=== PATIENT | female | born 1955 | race Caucasian/White ===

== ENCOUNTER 2025-01-27 12:56 | Outpatient (REF) | payer MEDICARE, SELFPAY ==
[2025-01-27 12:59] LABS: MANUAL DIFF FLAG NO
[2025-01-27 13:08] LABS: Basophils Percent Auto 0.4 % (0-2); Eosinophils Absolute Auto 0.2 X10*3/uL (0.0-0.4); Eosinophils Percent Auto 2.1 % (0-4); Hematocrit 35.4 % (37.0-47.0); Hemoglobin 11.4 g/dl (12.0-16.0); Imm Gran Abs Auto 0.03 X10*3/uL (0.00-0.03); Imm Gran Pct Auto 0.4 % (0.0-0.4); Lymphocytes Absolute Auto 2.5 X10*3/uL (1.2-4.9); Lymphocytes Percent Auto 33.9 % (20-40); Mean Corpuscular HGB Conc 32.2 g/dl (31.0-35.0); Mean Corpuscular Hemoglobin 27.1 pg (27.0-33.0); Mean Corpuscular Volume 84.1 fL (80.0-98.0); Mean Platelet Volume 9.8 fL (9.4-12.3); Monocytes Absolute Auto 0.8 X10*3/uL (0.1-1.2); Monocytes Percent Auto 11.3 % (2-11); Neutrophils Absolute Auto 3.8 x10*3/uL (2.0-8.3); Neutrophils Percent Auto 51.9 % (45-73); Platelet Count 477 X10*3/uL (160-400); Red Blood Count 4.21 X10*6/uL (4.20-5.50); White Blood Count 7.3 X10*3/uL (4.8-10.8)
[2025-01-27 13:20] LABS: Anion Gap 18 (12-20); Blood Urea Nitrogen 10 mg/dL (9-16); Calcium 10.1 mg/dL (8.4-10.2); Carbon Dioxide 20 mmol/L (22-29); Chloride 107 mmol/L (96-108); Estimated Glomerular Filt Rate > 60; Glucose Random 89 mg/dL (60-115); Potassium 3.5 mmol/L (3.3-5.1); Sodium 141 mmol/L (135-145)
== END 2025-01-27 12:57 | disposition home or self-care (01) ==
LOC: HO.MMNH2L 12:56
PROVIDERS: Visit Provider Student in an Organized Health Care Education/Training Program
DX: D64.9 Anemia, unspecified (principal); I13.0 Hypertensive heart and chronic kidney disease with heart failure and stage 1 through stage 4 chronic kidney disease, or unspecified chronic kidney disease
CPT/HCPCS: 36415; 80048; 85025

== ENCOUNTER 2025-03-03 08:28 | Outpatient (REF) | payer MEDICARE, SELFPAY ==
--- OUTSIDE RECORDS SUMMARY | 2025-03-03 08:50 | XMS_ITS | Clinical Summary ---
Author Organization LL [facility] Address [address] [place] [phone] Phone Care Team Providers Care Radio Journalist Name Role Phone Betsy Rodriguez MD Primary Care Prov ider Allergies Active Allergy Reactions Criticality Noted Date Comments Gabapentin Unknown 09/30/2024 Pregabalin Unknown 09/30/2024 Medications ascorbic acid (VITAMIN C) 500 mg tablet Take 1 tablet (500 mg total) by mouth 1 (one) time each day. Active aspirin 81 mg EC tablet Take 1 tablet (81 mg total) by mouth 1 (one) time each day. Active calcium carbonate (TUMS) 500 mg (200 mg elemental calcium) chewable tablet Chew 1 tablet (500 mg total) every 4 (four) hours if needed for heartburn or indigestion (q 4 hours p). Active lactulose (CHRONULAC) solutionIndicati ons:constipation Take 30 mL (20 g total) by mouth every 3 (three) days. PRN :Give if no BM X 3 days, to be given by day shift Active metoprolol tartrate (LOPRESSOR) 25 mg tablet Take 1 tablet (25 mg total) by mouth 2 (two) times a day. Active zinc sulfate (ZINCATE) 220 mg (50 mg elemental zinc) capsule Take 1 capsule (220 mg total) by mouth 1 (one) time each day. Active amLODIPine (NORVASC) 5 mg tablet Take 1 tablet (5 mg total) by mouth 1 (one) time each day. 11/28/202 4 11/28/20 25 Active atorvastatin (LIPITOR) 40 mg tablet Take 1 tablet (40 mg total) by mouth at bedtime. 10/07/20 Active DULoxetine (CYMBALTA) [address] capsule Take 1 capsule (30 mg total) by mouth 1 (one) time each day. Do not crush or chew. 10/07/20 Active ferrous sulfate 325 mg (65 mg elemental iron) tablet Take 1 tablet (325 mg total) by mouth 1 (one) time each day. 10/07/20 Active Lactobacillus acidoph-L.bulgar (FLORANEX) 1 million cell tablet Take 1 tablet by mouth 2 (two) times a day with meals. Active rivaroxaban (Xarelto) 2.5 mg tabletIndication s:atrial fibrillation Take 1 tablet (2.5 mg total) by mouth 2 (two) times a day with meals. Active aluminum-magnesi um hydroxide-simeth icone (MAALOX) 200-200-20 mg/5 mL suspension Take 30 mL by mouth every 4 (four) hours if needed for heartburn. Active Admelog U-100 insulin lispro 100 unit/mL injectionIndicat ions:type 2 diabetes mellitus Inject 2-12 Units under the skin 3 (three) times a day before meals. -Administer within 15 minutes of a meal 10/07/20 Active multivitamin tablet Take 1 tablet by mouth 1 (one) time each day. Active thiamine (VITAMIN B-1) 100 mg tablet Take 1 tablet (100 mg total) by mouth 1 (one) time each day. Active metFORMIN (GLUCOPHAGE) 500 mg tabletIndication s:type 2 diabetes mellitus Take 1 tablet (500 mg total) by mouth 1 (one) time each day with breakfast. 10/07/20 Active senna (SENOKOT) 8.6 mg tablet Take 2 tablets (17.2 mg total) by mouth at bedtime. 10/07/20 Active Active Problems Problem Noted Date Diagnosed Date Left below-knee amputee ([facility] V24, [facility] V2 8) 09/30/2024 Toe ulcer due to DM ([facility] V24, [facility] V28) 0 02/28/2022 Overview (12/06/2024): Left second toe. Status postdebridement. To be following with Dr. Shana ANN Hypertensive retinopathy of both eyes 01/04/2022 Overview (12/06/2024): Dr. 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 Nuclear sclerosis 01/04/2022 Overview (12/06/2024): Cataract surgery recommnded, patient declined. Type 2 diabetes mellitus wit h eye manifestations ([facility] V24, [facility] V28) 01/04/2022 Overview (12/06/2024): Diabetic retinopathy, macula edema. Dr. Hunter SVT (supraventricular tachycardia) ([facility] V24) 05/28/2021 Amputation, below knee, unil ateral, traumatic ([facility] V24, [facility] V28) 12/10/2018 Peripheral vascular disease ([facility] V24) 2018 Overview (12/06/2024): Status post left great toe amputation, status post superficial femoral artery to dorsalis pedis bypass left SFA endarterectomy status post right BKA Diabetes mellitus ([facility] V24, [facility] V28) 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 ([facility] V24) 03/16/2018 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 ([facility] V24) 01/26/2018 Overview (12/06/2024): Dry gangrene Hypertriglyceridemia 12/13/2013 Overview (12/06/2024): IMO update Diabetes mellitus, type 2 ([facility] V24, [facility] V28) 08/02/2013 Hypertension 08/02/2013 Major depression 08/02/2013 Immunizations Name Administration Dates Next Due Pneumococcal polysaccharide 23 valent (Pneumovax 23) 2yo and older 12/13/2013 Td, Unspecified 04/10/2004 Tdap Tetanus diptheria acell ular pertussis (Boostrix; Adacel) 7yo and older 12/13/2013 Surgical History Surgery Date Site/Laterality Comments TONSILLECTOMY 11/10/1959 PROCEDURE: HISTORICAL TONSILLECTOMY BYPASS GRAFT 03/16/2018 PROCEDURE: CT AMPUTATION TOE METATARSOPHALANGEAL JOINT; COMMENT: Left first toe ray amputation OTHER SURGICAL HISTORY 09/14/2018 PROCEDURE: HISTORY OTHER; COMMENT: Right below-knee amputation OTHER SURGICAL HISTORY 07/27/2018 PROCEDURE: HISTORY OTHER; COMMENT: Left common femoral artery access OTHER SURGICAL HISTORY 12/31/2017 PROCEDURE: HISTORY OTHER; COMMENT: Left SFA to DP bypass. Endoscopic vein harvest. 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 ([facility] V24) 01/26/2018 DX:Traumatic amputation of g reat toe of left foot ([facility]); COMMENT: Dry gangrene Cholelithiasis DX:Cholelithiasi s Gangrene ([facility] V24, [facility] V28) DX:Gangrene ([facility]); COMMENT: Left great toe Legally blind DX:Legally blind Neuropathy DX:Neuropathy Osteoarthritis DX:Osteoarthriti s PAD (peripheral artery disea se) ([facility] V24) DX:PAD (peripheral artery di sease) ([facility]) Poor dentition DX:Poor dentitio n PVD (peripheral vascular dis ease) ([facility] V24) DX:PVD (peripheral vascular disease) ([facility]) S/P angioplasty DX:S/P angioplas ty S/P BKA (below knee amputati on) ([facility] V24, [facility] V28) DX:S/P BKA (below knee ampu tation) ([facility]) Diabetes mellitus type 2, co ntrolled, with complications ([facility] V24, [facility] V28) DX:Diabetes mellitus type 2, controlled, with complications ([facility]) Esophageal reflux DX:Esophageal reflux Hyperlipidemia DX:Hyperlipidemi a Essential hypertension DX:Essent ial hypertension Toe ulcer due to DM ([facility] V24, [facility] V28) 02/28/2022 DX:Toe ulcer due to DM ([facility]) ; COMMENT: Left second toe. Status postdebridement. To be following with Dr. Shana ANN Family History Medical History Relation Name Comments No Known Problems Brother Coronary artery disease Father Diabetes Father Depression Mother Diabetes Mother Hypertension Mother Stroke Mother Thyroid disease Mother Lung cancer Paternal Grandfather Mental illness Sister Other: ca rectal Sister Ovarian cancer Sister Thyroid disease Sister Relation Name Status Comments Brother Alive no medical prob lems Father diabetes Maternal Grandmother (Age 59) [facility] Mother (Age 77) stroke age 75 diabetes- HTN- thyroid - depression- rheumatoid arthritis Paternal Grandfather (Age 70's ) diabetes Paternal Grandmother Alive no medi mariana problems Sister Alive precancer ovari an - surgically removed Social History Tobacco Use Types Packs/Day Years Used Date Smoking Tobacco: Never Smokeless Tobacco: Never Alcohol Use Standard Drinks/Week Comments No 0 (1 standard drink = 0.6 oz pur e alcohol) Housing Instability Answer Date Recorde d Are you worried that in the next 2 months you may not have stable housing? No 09/30/2024 Food Access & Nutrition Answer Date Rec orded Do you have access to a vari ety of food including fruits and vegetables? Yes 09/30/2024 Health Literacy Answer Date Recorded How often do you need to hav e someone help you when you read instructions, pamphlets, or other written material from your doctor or pharmacy? Never 10/08/2024 Caregiver: How often do you need to have someone help you when you read instructions, pamphlets, or other written material from your doctor or pharmacy? Not on file 10/08/2024 Financial Risk Answer Date Recorded How hard is it for you to pa y for the very basics like food, housing, medical care, and air conditioning / heating? Patient declined 09/30/2024 Transportation Answer Date Recorded Has the lack of transportati on kept you from meetings, work, or from getting things needed for daily living? No Has the lack of transportati on kept you from medical appointments or from getting medications? No 10/01/2024 Social Isolation Answer Date Recorded How often do you feel lonely or isolated from th ose around you? Never 10/08/2024 Food Risk Answer Date Recorded Within the past 12 months we worried whether our food would run out before we got money to buy more. Never true 09/30/2024 Within the past 12 months th e food we bought just didn't last and we didn't have money to get more. Never true 09/30/2024 Dependent Care Answer Date Recorded Do you need help finding or paying for care for your loved ones. For example, children's ministry director or elderly care for an older adult? No 09/30/2024 Education Answer Date Recorded Do you think completing more education or training, like finishing a GED, going to college, or learning a trade, would be helpful for you? No 09/30/2024 Employment and Income Answer Date Recor ded During the last four weeks, have you been actively looking for work? No 09/30/2024 Living Situation Answer Date Recorded What is your living situation? 1 11/30/2023 Interpersonal Safety Answer Date Record ed Physical Abuse 09/30/2024 Verbal Abuse 09/30/2024 Comments Unknown Sex and Gender Information Value Date Recorded Sex Assigned at Not on file Legal Sex Female 3:32 AM EST Gender Identity Female 09/30/2024 6:31 PM EST Sexual Orientation Not on file Obstetrics History Last Filed Vital Signs Vital Sign Reading Time Taken Comments Blood Pressure 168/75 10/08/2024 7:55 AM EST Pulse 69 10/08/2024 7:55 AM EST Temperature 36.3 ??C (97.3 ??F) 10/08/2024 7:55 AM ES T Respiratory Rate 15 10/08/2024 1:21 AM EST Oxygen Saturation 97% 10/08/2024 7:55 AM EST Inhaled Oxygen Concentration - - Weight 53.9 kg (118 lb 12.8 oz) 10/02/2024 9:00 AM EST Height 165 cm (5' 4.96 ) 09/30/2024 11: 14 AM EST Body Mass Index 19.79 09/30/2024 11:14 AM EST Plan of Treatment Health Maintenance Due Date Last Done Comments Breast Cancer Screening 1955 Diabetes: Annual Foot Exam 1963 Diabetes: Annual Retina Eye Exam 1963 Zoster Vaccines (1 of 2) 2003 RSV Immunization Adult Patients (1 - Risk 60-74 years 1-dose series) 2013 Pneumococcal Vaccine: 50+ Years (2 of 2 - PCV) 12/13/2014 12/13/2013 Cholesterol Screening (Lipid Panel) 10/19/2022 Colorectal Cancer Screening: Colonoscopy 10/19/2022 Osteoporosis Screening (Bone Density Screening) 10/19/2022 Diabetes: Blood Sugar Contro l Test (HGBA1C) 10/20/2022 DTaP,Tdap,and Td Vaccines (3 - Td or Tdap) 12/13/2023 12/13/2013, 04/10/2004 COVID-19 Vaccine (3 - 2023-2 5 season) 2024 03/04/2021, 02/09/2021 Medicare Annual Wellness Visit 08/26/2024 08/26/2023 Diabetes: Annual Urine Albumin-Creatinine Ratio (uACR) 12/08/2024 12/08/2023 Influenza Vaccine (Season Ended) 2025 08/14/2018 Diabetes: Annual GFR (Glomerular Filtration Rate) 10/06/2025 10/06/2024, 10/01/2024, 09/17/2024 Hypertension/CHF/CAD Annual BMP Blood Test 10/06/2025 10/06/2024, 10/01/2024, 09/17/2024 Depression Screening 10/08/2025 10/08/2024 Falls Risk Assessment 10/08/2025 10/08/2024 Social Influencers of Health Screening 10/08/2025 10/08/2024 Hepatitis C Screening Completed 05/11/2014 HIB Vaccines Aged Out No longer eligi ble based on patient's age to complete this topic HPV Vaccines Aged Out No longer eligi ble based on patient's age to complete this topic Hepatitis A Vaccines Aged Out No long er eligible based on patient's age to complete this topic Hepatitis B Vaccines Aged Out No long er eligible based on patient's age to complete this topic IPV Vaccines Aged Out No longer eligi ble based on patient's age to complete this topic MMR Vaccines Aged Out No longer eligi ble based on patient's age to complete this topic Meningococcal ACWY Vaccine Aged Out N o longer eligible based on patient's age to complete this topic Meningococcal B Vaccine Aged Out No l onger eligible based on patient's age to complete this topic RSV Immunization Patients Under 20 months Aged Out No longer eligible b ased on patient's age to complete this topic Varicella Vaccines Aged Out No longer eligible based on patient's age to complete this topic Procedures Procedure Name Priority Date/Time Associated Diagnosis Comments COMPREHENSIVE METABOLIC PANEL Routine 10/06/2024 5:55 AM EST URINE ALBUMIN CREATININE RATIO Routine 12/08/2023 HEPATITIS C SCREENING Routine 05/11/2014 from Last 3 Months or Most Recently Relevant to Health Maintenance Results * (ABNORMAL) Comprehensive metabolic panel (10/06/2024 5:55 AM EST) Sodium 136 133 - 145 mmol/L LAB CHEMISTRY METHOD 10/06/2024 6:53 AM [facility] Potassium 4.3 3.5 - 5.5 mmol/L LAB CHEMISTRY METHOD 10/06/2024 6:53 AM [facility] Chloride 101 96 - 110 mmol/L LAB CHEMISTRY METHOD 10/06/2024 6:53 AM [facility] CO2 26 21 - 32 mmol/L LAB CHEMISTRY METHOD 10/06/2024 6:53 AM [facility] Anion Gap 9 3 - 11 LAB CHEMISTRY METHOD 10/06/2024 6:53 AM [facility] Glucose 86 70 - 100 mg/dL LAB CHEMISTRY METHOD 10/06/2024 6:53 AM [facility] BUN 16 5 - 25 mg/dL LAB CHEMISTRY METHOD 10/06/2024 6:53 AM [facility] Creatinine 0.48(L) 0.50 - 1.10 mg/dL LAB CHEMISTRY METHOD 10/06/2024 6:53 AM [facility] eGFR 101 >=60 mL/min/1. 73m2 LAB CHEMISTRY METHOD 10/06/2024 6:53 AM [facility] Comment:Calculation based on the??Chronic Kidney Disease Epidemiology Collaboration (CKD-EPI) equation refit??without adjustment for race. BUN/Creatinine Ratio 33.3 LAB CHEMISTRY METHOD 10/06/2024 6:53 AM [facility] Calcium 9.6 8.5 - 10.5 mg/dL LAB CHEMISTRY METHOD 10/06/2024 6:53 AM [facility] AST (SGOT) 16 10 - 42 unit/L LAB CHEMISTRY METHOD 10/06/2024 6:53 AM [facility] ALT (SGPT) 12 10 - 60 unit/L LAB CHEMISTRY METHOD 10/06/2024 6:53 AM [facility] Alkaline Phosphatase 72 42 - 121 unit/L LAB CHEMISTRY METHOD 10/06/2024 6:53 AM [facility] Total Protein 5.6(L) 6.0 - 8.0 g/dL LAB CHEMISTRY METHOD 10/06/2024 6:53 AM [facility] Albumin 2.2(L) 3.2 - 5.0 g/dL LAB CHEMISTRY METHOD 10/06/2024 6:53 AM [facility] Total Bilirubin 0.3 0.0 - 1.4 mg/dL LAB CHEMISTRY METHOD 10/06/2024 6:53 AM [facility] Blood Venous blood specimen / Unknown Venipuncture / Unknown 10/06/2024 5:55 AM EST 10/06/2024 6:16 AM EST us Amalia M Rin PA LAB BLOOD ORDERABLES Final R esult 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 Advance Directives and Living Will 10/14/2024 8:46 AM Health Care Decision (hx) 06/26/2022 AD NEW DIRECTIVE Health Care Decision (hx) 06/12/2022 AD NEW DIRECTIVE Health Care Decision (hx) 06/12/2022 AD NEW DIRECTIVE Health Care Decision (hx) 06/12/2022 AD NEW DIRECTIVE Health Care Decision (hx) 06/12/2022 AD NEW DIRECTIVE Health Care Decision (hx) 06/12/2022 AD NEW DIRECTIVE Health Care Decision (hx) 06/12/2022 AD NEW DIRECTIVE Health Care Decision (hx) 06/12/2022 AD NEW DIRECTIVE Health Care Decision (hx) 06/12/2022 AD NEW DIRECTIVE Health Care Decision (hx) 06/12/2022 AD NEW DIRECTIVE Health Care Decision (hx) 06/12/2022 AD NEW DIRECTIVE Health Care Decision (hx) 06/12/2022 AD NEW DIRECTIVE Health Care Decision (hx) 06/12/2022 AD NEW DIRECTIVE Health Care Decision (hx) 06/12/2022 AD NEW DIRECTIVE Health Care Decision (hx) 06/12/2022 AD NEW DIRECTIVE Health Care Decision (hx) 06/12/2022 AD NEW DIRECTIVE Health Care Decision (hx) 06/12/2022 AD NEW DIRECTIVE Health Care Decision (hx) 06/12/2022 AD NEW DIRECTIVE Health Care Decision (hx) 06/12/2022 AD NEW DIRECTIVE Health Care Decision (hx) 06/12/2022 AD NEW DIRECTIVE Health Care Decision (hx) 06/12/2022 AD NEW DIRECTIVE Health Care Decision (hx) 06/12/2022 AD NEW DIRECTIVE Health Care Decision (hx) 06/12/2022 AD NEW DIRECTIVE Health Care Decision (hx) 06/12/2022 AD NEW DIRECTIVE Health Care Decision (hx) 06/12/2022 AD NEW DIRECTIVE Health Care Decision (hx) 06/12/2022 AD NEW DIRECTIVE Health Care Decision (hx) 06/12/2022 AD NEW DIRECTIVE Health Care Decision (hx) 06/12/2022 AD NEW DIRECTIVE Health Care Decision (hx) 06/12/2022 AD NEW DIRECTIVE Health Care Decision (hx) 06/12/2022 AD NEW DIRECTIVE Health Care Decision (hx) 06/12/2022 AD NEW DIRECTIVE Health Care Decision (hx) 06/12/2022 AD NEW DIRECTIVE Health Care Decision (hx) 06/12/2022 AD NEW DIRECTIVE Health Care Decision (hx) 06/12/2022 AD NEW DIRECTIVE Health Care Decision (hx) 06/12/2022 AD NEW DIRECTIVE Health Care Decision (hx) 06/12/2022 AD ENW DIRECTIVE Health Care Decision (hx) 06/12/2022 AD NEW DIRECTIVE Health Care Decision (hx) 06/12/2022 AD NEW DIRECTIVE Health Care Decision (hx) 06/12/2022 AD NEW DIRECTIVE Health Care Decision (hx) 06/12/2022 AD NEW DIRECTIVE Health Care Decision (hx) 06/12/2022 AD NEW DIRECTIVE Health Care Decision (hx) 06/12/2022 AD NEW DIRECTIVE Health Care Decision (hx) 06/12/2022 AD NEW DIRECTIVE Health Care Decision (hx) 06/12/2022 AD NEW DIRECTIVE Health Care Decision (hx) 06/09/2022 AD NEW DIRECTIVE Health Care Decision (hx) 06/09/2022 AD NEW DIRECTIVE Health Care Decision (hx) 06/09/2022 AD NEW DIRECTIVE Health Care Decision (hx) 06/09/2022 AD NEW DIRECTIVE Health Care Decision (hx) 06/09/2022 AD NEW DIRECTIVE Health Care Decision (hx) 06/09/2022 AD NEW DIRECTIVE Health Care Decision (hx) 06/09/2022 AD NEW DIRECTIVE Health Care Decision (hx) 06/09/2022 AD NEW DIRECTIVE Health Care Decision (hx) 06/09/2022 AD NEW DIRECTIVE Health Care Decision (hx) 06/09/2022 AD NEW DIRECTIVE Health Care Decision (hx) 06/09/2022 AD NEW DIRECTIVE Health Care Decision (hx) 06/09/2022 AD NEW DIRECTIVE Health Care Decision (hx) 06/09/2022 AD NEW DIRECTIVE Health Care Decision (hx) 06/09/2022 AD NEW DIRECTIVE Health Care Decision (hx) 06/09/2022 AD NEW DIRECTIVE Health Care Decision (hx) 06/09/2022 AD NEW DIRECTIVE Health Care Decision (hx) 06/09/2022 AD NEW DIRECTIVE Health Care Decision (hx) 06/09/2022 AD NEW DIRECTIVE Health Care Decision (hx) 06/09/2022 AD NEW DIRECTIVE Health Care Decision (hx) 06/09/2022 AD NEW DIRECTIVE Health Care Decision (hx) 06/09/2022 AD NEW DIRECTIVE Health Care Decision (hx) 06/09/2022 AD NEW DIRECTIVE Health Care Decision (hx) 06/09/2022 AD NEW DIRECTIVE Health Care Decision (hx) 06/09/2022 AD NEW DIRECTIVE Health Care Decision (hx) 06/09/2022 AD NEW DIRECTIVE Health Care Decision (hx) 06/09/2022 AD NEW DIRECTIVE Health Care Decision (hx) 06/09/2022 AD NEW DIRECTIVE Health Care Decision (hx) 06/09/2022 AD NEW DIRECTIVE Health Care Decision (hx) 06/09/2022 AD NEW DIRECTIVE Health Care Decision (hx) 06/09/2022 AD NEW DIRECTIVE Health Care Decision (hx) 06/09/2022 AD NEW DIRECTIVE Health Care Decision (hx) 06/09/2022 AD NEW DIRECTIVE Health Care Decision (hx) 06/09/2022 AD NEW DIRECTIVE Health Care Decision (hx) 06/09/2022 AD NEW DIRECTIVE Health Care Decision (hx) 06/09/2022 AD NEW DIRECTIVE Health Care Decision (hx) 06/09/2022 AD NEW DIRECTIVE Health Care Decision (hx) 06/09/2022 AD NEW DIRECTIVE Health Care Decision (hx) 06/09/2022 AD NEW DIRECTIVE Health Care Decision (hx) 06/09/2022 AD NEW DIRECTIVE Health Care Decision (hx) 06/09/2022 AD NEW DIRECTIVE Health Care Decision (hx) 06/09/2022 AD NEW DIRECTIVE Health Care Decision (hx) 06/09/2022 AD NEW DIRECTIVE Health Care Decision (hx) 06/09/2022 AD NEW DIRECTIVE Advance Directives and Living Will 10/01/2024 9:30 AM [facility] * Full Code - Default (Latest Code Status on File) Date Activated Date Inactivated Comments 09/30/2024 6:25 PM 10/08/2024 2:32 PM This is or danish is used when code status has not been discussed with the patient, or code status is otherwise unknown/unconfirmed To update the patient's code status, place a code status order. Do not modify or discontinue any currently active code status orders. Care Teams Radio Journalist Relationship Specialty Start Date End Date Betsy Rodriguez MD [address] [place] [id number] PCP - General Internal Medicine 09/30/24
--- OUTSIDE RECORDS SUMMARY | 2025-03-03 08:50 | XMS_ITS | Encounter Summary ---
Author Organization [facility] Address [address] [place] [address] Care Team Providers Care Stogy Roller Name Role Phone Betsy Rodriguez MD Primary Care Prov ider Encounter Details Date Type Department Care Team (Late st Contact Info) Description 09/17/2024 Lab Requisition [facility] - Main Lab [address] [facility] [place] [id number] Mark Anthony Simpson MD [address] [place] [address] Essential (primary) hypertension; Type 2 diabetes mellitus without complications (CMS/HCC V24, CMS/HCC V28) Social History Tobacco Use Types Packs/Day Years Used Date Smoking Tobacco: Never Smokeless Tobacco: Never Alcohol Use Standard Drinks/Week Comments No 0 (1 standard drink = 0.6 oz pur e alcohol) Comments Unknown Sex and Gender Information Value Date Recorded Sex Assigned at Not on file Legal Sex Female 3:32 AM EST Gender Identity Female 09/30/2024 6:31 PM EST Sexual Orientation Not on file documented as of this encounter Plan of Treatment Not on file documented as of this encounter Procedures Procedure Name Priority Date/Time Associated Diagnosis Comments SEDIMENTATION RATE Routine 09/17/2024 5: 38 AM EST Essential (primary) hypertension Type 2 diabetes mellitus without complications (CMS/HCC) COMPLETE BLOOD COUNT Routine 09/17/2024 5:38 AM EST Essential (primary) hypertension Type 2 diabetes mellitus without complications (CMS/HCC) C-REACTIVE PROTEIN Routine 09/17/2024 5: 38 AM EST Essential (primary) hypertension Type 2 diabetes mellitus without complications (CMS/HCC) COMPREHENSIVE METABOLIC PANEL Routine 09/17/2024 5:38 AM EST Essential (primary) hypertension Type 2 diabetes mellitus without complications (CMS/HCC) documented in this encounter Results * (ABNORMAL) C-reactive protein (09/17/2024 5:38 AM EST) C-Reactive Protein 2.55(H) <=0.50 mg/dL LAB CHEMISTRY METHOD 09/17/2024 9:14 AM EST [facility] Blood Venous blood specimen / Unknown Venipuncture / Unknown 09/17/2024 5:38 AM EST 09/17/2024 8:06 AM EST Mark Anthony Simpson MD LAB BLOOD ORDERABLES Final Result Performing Organization Address City/[facility]/ZIP Co de Phone Number [facility] [address] [place] [address], [place] [phone] * (ABNORMAL) Sedimentation rate (09/17/2024 5:38 AM EST) Sed Rate 97(H) 0 - 30 mm/hr LAB HEMETOLOGY METHOD 09/17/2024 8:33 AM EST [facility] Blood Venous blood specimen / Unknown Venipuncture / Unknown 09/17/2024 5:38 AM EST 09/17/2024 8:06 AM EST Mark Anthony Simpson MD LAB BLOOD ORDERABLES Final Result [facility] [address] [place] [address], [place] [phone] * (ABNORMAL) Comprehensive metabolic panel (09/17/2024 5:38 AM EST) Sodium 139 133 - 145 mmol/L LAB CHEMISTRY METHOD 09/17/2024 9:14 AM [facility] Potassium 5.0 3.5 - 5.5 mmol/L LAB CHEMISTRY METHOD 09/17/2024 9:14 AM [facility] Comment:Hemolysis present Chloride 106 96 - 110 mmol/L LAB CHEMISTRY METHOD 09/17/2024 9:14 AM [facility] CO2 27 21 - 32 mmol/L LAB CHEMISTRY METHOD 09/17/2024 9:14 AM [facility] Anion Gap 6 3 - 11 LAB CHEMISTRY METHOD 09/17/2024 9:14 AM [facility] Glucose 92 70 - 100 mg/dL LAB CHEMISTRY METHOD 09/17/2024 9:14 AM [facility] BUN 27(H) 5 - 25 mg/dL LAB CHEMISTRY METHOD 09/17/2024 9:14 AM [facility] Creatinine 0.58 0.50 - 1.10 mg/dL LAB CHEMISTRY METHOD 09/17/2024 9:14 AM [facility] eGFR 97 >=60 mL/min/1. 73m2 LAB CHEMISTRY METHOD 09/17/2024 9:14 AM [facility] Comment:Calculation based on the??Chronic Kidney Disease Epidemiology Collaboration (CKD-EPI) equation refit??without adjustment for race. BUN/Creatinine Ratio 46.6 LAB CHEMISTRY METHOD 09/17/2024 9:14 AM [facility] Calcium 10.3 8.5 - 10.5 mg/dL LAB CHEMISTRY METHOD 09/17/2024 9:14 AM [facility] AST (SGOT) 22 10 - 42 unit/L LAB CHEMISTRY METHOD 09/17/2024 9:14 AM [facility] Comment:Hemolysis present ALT (SGPT) 9(L) 10 - 60 unit/L LAB CHEMISTRY METHOD 09/17/2024 9:14 AM [facility] Alkaline Phosphatase 73 42 - 121 unit/L LAB CHEMISTRY METHOD 09/17/2024 9:14 AM [facility] Total Protein 6.2 6.0 - 8.0 g/dL LAB CHEMISTRY METHOD 09/17/2024 9:14 AM [facility] Albumin 2.6(L) 3.2 - 5.0 g/dL LAB CHEMISTRY METHOD 09/17/2024 9:14 AM [facility] Total Bilirubin 0.3 0.0 - 1.4 mg/dL LAB CHEMISTRY METHOD 09/17/2024 9:14 AM [facility] Blood Venous blood specimen / Unknown Venipuncture / Unknown 09/17/2024 5:38 AM EST 09/17/2024 8:06 AM EST Mark Anthony Simpson MD LAB BLOOD ORDERABLES Final Result [facility] [address] [place] [address], * (ABNORMAL) Complete blood count (09/17/2024 5:38 AM EST) WBC 10.6 4.8 - 10.8 K/[facility] LAB HEMETOLOGY METHOD 09/17/2024 8:22 AM [facility] RBC 3.70(L) 3.80 - 4.80 M/[facility] LAB HEMETOLOGY METHOD 09/17/2024 8:22 AM [facility] Hemoglobin 10.0(L) 11.5 - 16.0 g/dL LAB HEMETOLOGY METHOD 09/17/2024 8:22 AM [facility] Hematocrit 32.4(L) 35.0 - 47.0 % LAB HEMETOLOGY METHOD 09/17/2024 8:22 AM EST [facility] MCV 86.6 79.0 - 98.0 FL LAB HEMETOLOGY METHOD 09/17/2024 8:22 AM EST [facility] MCH 26.7(L) 27.0 - 32.0 pcg LAB HEMETOLOGY METHOD 09/17/2024 8:22 AM [facility] MCHC 30.9(L) 32.0 - 37.0 g/dL LAB HEMETOLOGY METHOD 09/17/2024 8:22 AM EST [facility] RDW 16.4(H) 11.0 - 15.0 % LAB HEMETOLOGY METHOD 09/17/2024 8:22 AM [facility] Platelets 481(H) 130 - 400 K/mcL LAB HEMETOLOGY METHOD 09/17/2024 8:22 AM [facility] MPV 10.1 7.0 - 11.0 FL LAB HEMETOLOGY METHOD 09/17/2024 8:22 AM EST [facility] NRBC 0.0 <1.0 % LAB HEMETOLOGY METHOD 09/17/2024 8:22 AM [facility] NRBC Absolute 0.00 <0.10 K/mcL LAB HEMETOLOGY METHOD 09/17/2024 8:22 AM [facility] Blood Venous blood specimen / Unknown Venipuncture / Unknown 09/17/2024 5:38 AM EST 09/17/2024 8:06 AM EST us Mark Anthony Simpson MD LAB BLOOD ORDERABLES Final Result [facility] [address] [place] [address], documented in this encounter Visit Diagnoses Diagnosis Essential (primary) hypertension Unspecified essential hypertension Type 2 diabetes mellitus without complications (CMS/HCC V24, CMS/HCC V28) documented in this encounter Care Teams Stogy Roller Relationship Specialty Start Date End Date Betsy Rodriguez MD [address] [place] [id number] PCP - General Internal Medicine 09/30/24 documented as of this encounter
[2025-03-03 10:14] LABS: Alanine Aminotransferase 6 U/L (0-31); Albumin Level 3.1 g/dL (3.5-5.0); Alkaline Phosphatase 61 U/L (39-117); Anion Gap 9 (12-20); Aspartate Amino Transferase 20 U/L (5-31); Bilirubin Total 0.4 mg/dL (0.0-1.0); Blood Urea Nitrogen 16 mg/dL (9-16); Calcium 9.8 mg/dL (8.4-10.2); Carbon Dioxide 25 mmol/L (22-29); Chloride 109 mmol/L (96-108); Estimated Glomerular Filt Rate > 60; Glucose Random 92 mg/dL (60-115); Potassium 3.8 mmol/L (3.3-5.1); Sodium 139 mmol/L (135-145); Total Protein 6.2 g/dL (6.5-8.0)
== END 2025-03-03 08:29 | disposition home or self-care (01) ==
LOC: HO.MMNH2L 08:28
PROVIDERS: Visit Provider Student in an Organized Health Care Education/Training Program
DX: E87.6 Hypokalemia (principal)
CPT/HCPCS: 36415; 80053

== ENCOUNTER 2025-03-28 05:55 | Outpatient (REF) | payer MEDICARE, MEDICAID, SELFPAY ==
--- OUTSIDE RECORDS SUMMARY | 2025-03-28 05:57 | XMS_ITS | Encounter Summary ---
Author Organization [facility] Address [address] [place] [address] Care Team Providers Care Transplant Registered Nurse Name Role Phone Immanuel Rodriguez MD Primary Care Provider [phone] Encounter Details Date Type Department Care Team Description 01/01/2024 Sports Physician Report Medical Records [address] [place] [address] Bassam Golden DO Social History Tobacco Use Types Packs/Day Years Used Date Smoking Tobacco: Never Smokeless Tobacco: Never Alcohol Use Standard Drinks/Week Comments No 0 (1 standard drink = 0.6 oz pur e alcohol) Alcohol Habits Answer Date Recorded How often do you have a drin k containing alcohol? Never 08/26/2023 How many drinks containing a lcohol do you have on a typical day when you are drinking? Patient does not drink 08/26/2023 How often do you have six or more drinks on one occasion? Never 08/26/2023 Social Isolation Answer Date Recorded In a typical week, how many times do you talk on the phone with family, friends, or neighbors? More than three times a week 08/26/2023 How often do you get togethe r with friends or relatives? More than three times a week 08/26/2023 How often do you attend [facility] or caodaism services? More than 4 times per year 08/26/2023 Do you belong to any clubs o r organizations such as latter-day groups, unions, fraternal or athletic groups, or school groups? Yes 08/26/2023 How often do you attend meet ings of the clubs or organizations you belong to? More than 4 times per year 08/26/2023 Are you now , , , , never or living with a partner? Never 04/15/2022 Physical Activity Answer Date Recorded On average, how many days pe r week do you engage in moderate to strenuous exercise (like walking fast, running, jogging, dancing, swimming, biking, or other activities that cause a light or heavy sweat)? 0 days 08/26/2023 On average, how many minutes do you engage in exercise at this level? 0 min 08/26/2023 Stress Answer Date Recorded Do you feel stress - tense, restless, nervous, or anxious, or unable to sleep at night because your mind is troubled all the time - these days? Not at all 08/26/2023 Financial Resource Strain Answer Date R ecorded How hard is it for you to pa y for the very basics like food, housing, medical care, and heating? Not hard at all 08/26/2023 Intimate Partner Violence Answer Date R ecorded Within the last year, have y ou been afraid of your partner or ex-partner? No 08/26/2023 Within the last year, have y ou been humiliated or emotionally abused in other ways by your partner or ex-partner? No Within the last year, have y ou been kicked, hit, slapped, or otherwise physically hurt by your partner or ex-partner? No 08/26/2023 Within the last year, have y ou been raped or forced to have any kind of sexual activity by your partner or ex-partner? No 08/26/2023 Food Insecurity Answer Date Recorded Within the past 12 months, y ou worried that your food would run out before you got money to buy more. Never true 08/26/2023 Within the past 12 months, t he food you bought just didn't last and you didn't have money to get more. Never true 08/26/2023 Transportation Needs Answer Date Record ed In the past 12 months, has l ack of transportation kept you from medical appointments or from getting medications? No 08/10 In the past 12 months, has l ack of transportation kept you from meetings, work, or getting things needed for daily living? No 08/26/2023 Housing Stability Answer Date Recorded In the last 12 months, was t here a time when you were not able to pay the mortgage or rent on time? No 08/26/2023 In the last 12 months, how many places have you lived? 1 08/26/2023 In the last 12 months, was t here a time when you did not have a steady place to sleep or slept in a skilled nursing (including now)? No 08/26/2023 Sex Assigned at Date Recorded Not on file Job Start Date Occupation Industry Not on file Not on file Not on file documented as of this encounter Plan of Treatment Not on file documented as of this encounter Visit Diagnoses Not on filedocumented in this encounter Care Teams Transplant Registered Nurse Relationship Specialty Start Date End Date Immanuel Rodriguez MD [address] [place] [id number] PCP - General Internal Medicine 07/29/14 documented as of this encounter
--- OUTSIDE RECORDS SUMMARY | 2025-03-28 05:57 | XMS_ITS | Encounter Summary ---
Author Organization [facility] [employer] [facility] Address [address] [place] [address] Care Team Providers Care Mail Carrier Technician Name Role Phone Immanuel Rodriguez MD Primary Care Provider [phone] Narinder Yung DPMark Unavailable Unavailable Reason for Visit * Reason Onset Date Comments Error 08/09/2022 Encounter Details Date Type Department Care Team Description 08/09/2022 Refill Adult Medicine - [place] [address] [place] [address] Immanuel Rodriguez MD [address] [place] [address] Error Social History Tobacco Use Types Packs/Day Years [...] week 08/26/2023 How often do you attend [facility] or congregational services? More than 4 times per year 08/26/2023 Do you belong to any clubs o r organizations such as congregation groups, unions, fraternal or athletic groups, or [...] place to sleep or slept in a jail (including now)? No 08/26/2023 Sex Assigned at Date Recorded Not on file Job Start Date Occupation Industry Not on file Not on file Not on file COVID-19 Exposure Response Date Recorded In the last 10 days, have yo u been in contact with someone who was confirmed or suspected to have Coronavirus/COVID-19? No / Unsure 08/12/2022 10:27 AM EDT documented as of this encounter Plan of Treatment Not on file documented as of this encounter Visit Diagnoses Not on filedocumented in this encounter Care Teams Mail Carrier Technician Relationship Specialty Start Date End Date Immanuel Rodriguez MD [address] [place] [address] PCP - General Internal Medicine 07/29/14 Narinder Yung DPM [address] [place] [address] Podiatry 08/20/23 08/25/23 documented as of this encounter
--- OUTSIDE RECORDS SUMMARY | 2025-03-28 05:57 | XMS_ITS | Encounter Summary ---
Author Organization [facility] Address [address] [place] [address] Care Team Providers Care Physics Instructor Name Role Phone Immanuel Rodriguez MD Primary Care Provider [phone] [phone] Shona Funk PA-C Unavailable Unavailab Narinder Damon DPMark Unavailable Unavailable Reason for Visit * Reason Onset Date Comments Pre-visit Diabetes Lab Adult Medicine 07/27/202008/09 Encounter Details Date Type Department Care Team Description 07/27/2020 Telephone Adult Medicine - [place] [address] [place] [address] Immanuel Rodriguez MD [address] [place] [address] Pre-visit Diabetes Lab Adult Medicine (08/09) Social History Tobacco Use Types Packs/Day Years [...] week 08/26/2023 How often do you attend chur ch or bahai services? More than 4 times per year 08/26/2023 Do you belong to any clubs o r organizations such as nondenominational groups, unions, fraternal or athletic groups, or [...] place to sleep or slept in a fpc (including now)? No 08/26/2023 Sex Assigned at Date Recorded Not on file Job Start Date Occupation Industry Not on file Not on file Not on file documented as of this encounter Miscellaneous Notes * Telephone Encounter - Teresa Oreilly - 07/27/2020 8:56 AM EDT Sent patient an email advising them to complete diabetic lab work at least three days prior to their upcoming appointment. documented in this encounter Plan of Treatment Not on file documented as of this encounter Visit Diagnoses Diagnosis Uncontrolled type 2 diabetes mellitus with hyperglycemia (HCC)- Primary documented in this encounter Care Teams Physics Instructor Relationship Specialty Start Date End Date Immanuel Rodriguez MD [address] [place], [place] PCP - General Internal Medicine 07/29/14 Shona Funk PA-C [address] [place], [place] Cardiology 08/30/21 04/14/22 Narinder Yung DPM [address] [place], [place] Podiatry 08/20/23 08/25/23 documented as of this encounter
--- OUTSIDE RECORDS SUMMARY | 2025-03-28 05:57 | XMS_ITS | Encounter Summary ---
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 More than 4 times per year 08/26/2023 Do you belong to any clubs o r organizations such as faith groups, unions, fraternal or athletic groups, or [...] place to sleep or slept in a residential (including now)? No 08/26/2023 Sex Assigned at Date Recorded Not on file Job Start Date Occupation Industry Not on file Not on file Not on file COVID-19 Exposure Response Date Recorded In the last month, have you been in contact with someone who was confirmed or suspected to have Coronavirus / COVID-19? 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
--- OUTSIDE RECORDS SUMMARY | 2025-03-28 05:57 | XMS_ITS | Encounter Summary ---
[facility] Address [address] [place] [address] Care Team Providers Care Plant Superintendent Name Role Phone Immanuel Rodriguez MD Primary Care Provider [phone] [phone] Reason for Visit * Reason Onset Date Comments TEST RESULTS 12/24/2023 Encounter Details Date Type Department Care Team Description 12/24/2023 Telephone Adult Medicine - [place] [address] [place] [address] Immanuel Rodriguez MD [address] [place] [address] TEST RESULTS Social History Tobacco Use Types Packs/Day Years [...] week 08/26/2023 How often do you attend [facility] or orthodoxy services? More than 4 times per year 08/26/2023 Do you belong to any clubs o r organizations such as caodaism groups, unions, fraternal or athletic groups, or [...] encounter Miscellaneous Notes * Telephone Encounter - Tee Molina RN - 12/31/2023 8:54 AM EST Pt advised of provider message , pt states that she still has a wound on her foot that they are healing , pt states that wound clinic is telling her to do this * Telephone Encounter - Tee Molina RN - 12/29/2023 2:39 PM EST Tried calling mail box is full * Telephone Encounter - Donna Cornejo - 12/29/2023 1:07 PM EST Pt is looking for a call back for this to discuss: please call the pt back at [phone] * Telephone Encounter - Immanuel Rodriguez MD - 12/24/2023 10:55 AM EST This is usually an indication of kidney disease in diabetes which we do not have any control over. In terms of the diabetes her hemoglobin A1c was good. She should consider eating less proteins. We will follow closely * Telephone Encounter - Tee Molina RN - 12/24/2023 9:17 AM EST Pt states that she was told her protein was elevated , she is referring to the micro albumin, pt was given the message to drink more water , pt states that she is drinking water and the se eats alto of protein due to being an amputee documented in this encounter Plan of Treatment Not on file documented as of this encounter Visit Diagnoses Not on filedocumented in this encounter Care Teams Plant Superintendent Relationship Specialty Start Date End Date Immanuel Rodriguez MD [address] [place] [id number] PCP - General Internal Medicine 07/29/14 documented as of this encounter
--- OUTSIDE RECORDS SUMMARY | 2025-03-28 05:57 | XMS_ITS | Encounter Summary ---
Author Organization [facility] Address [address] [place] [address] Care Team Providers Care Osteopathy Doctor Name Role Phone Immanuel Rodriguez MD Primary Care Provider [phone] [phone] Shona Funk PA-C Unavailable Unavailab Narinder Damon DPMark Unavailable Unavailable Encounter Details Date Type Department Care Team Description 08/11/2020 [facility] Medical Records [address] [place] [address] Abstract, Provider Social History Tobacco Use Types Packs/Day Years [...] How often do you attend [facility] or jainism services? More than 4 times per year 08/26/2023 Do you belong to any clubs o r organizations such as taoism groups, unions, fraternal or athletic groups, or [...] place to sleep or slept in a penitentiary (including now)? No 08/26/2023 Sex Assigned at Date Recorded Not on file Job Start Date Occupation Industry Not on file Not on file Not on file COVID-19 Exposure Response Date Recorded In the last month, have you been in contact with someone who was confirmed or suspected to have Coronavirus / COVID-19? No / Unsure 08/09/2020 10:47 AM EDT documented as of this encounter Plan of Treatment Not on file documented as of this encounter Visit Diagnoses Not on filedocumented in this encounter Care Teams Osteopathy Doctor Relationship Specialty Start Date End Date Immanuel Rodriguez MD [address] [place] [address] PCP - General Internal Medicine 07/29/14 Shona Funk PA-C [address] [place], [place] Cardiology 08/30/21 04/14/22 Narinder Yung DPM [address] [place] [address] Podiatry 08/20/23 08/25/23 documented as of this encounter
--- OUTSIDE RECORDS SUMMARY | 2025-03-28 05:57 | XMS_ITS | Encounter Summary ---
Author Organization [facility] Address [address] [place] [address] Care Team Providers Care Asset Management Lead Name Role Phone Immanuel Rodriguez MD Primary Care Provider +1 [phone] Shona Funk PA-C Unavailable Unavailab Narinder Damon DPMark Unavailable Unavailable Encounter Details Date Type Department Care Team Description 11/22/2016 Orders Only Adult Medicine - [place] [address] [place] [address] Jill bentley Ch, MD [address] [place] [address] Uncontrolled type 2 diabetes mellitus with hyperosmolarity without coma, without long-term current use of insulin (HCC) (Primary Dx); Essential hypertension; Mild single current episode of major depressive disorder (HCC) Social History Tobacco Use Types Packs/Day [...] 08/26/2023 How often do you attend [facility] or mu-ism services? More than 4 times per year 08/26/2023 Do you belong to any clubs o r organizations such as jehovah's witness groups, unions, fraternal or athletic groups, or [...] place to sleep or slept in a mcc (including now)? No 08/26/2023 Sex Assigned at Date Recorded Not on file Job Start Date Occupation Industry Not on file Not on file Not on file documented as of this encounter Plan of Treatment Scheduled Orders Name Type Priority Associated Diagnoses Orde r Schedule COMPREHENSIVE METABOLIC PANEL Lab Routine Essential hypertension Expected: 11/22/2016, Expires: 11/22/2017 LIPID PROFILE Lab Routine Uncontrolled type 2 diabetes mellitus with hyperosmolarity without coma, without long-term current use of insulin (HCC) Expected: 11/22/2016, Expires: 11/22/2017 documented as of this encounter Results * (ABNORMAL) CBC (AUTO DIFF PLATELET) (11/22/2016 9:59 AM EST) WBC 6.9 4.8 - 10.8 x10-3 11/22/2016 12:55 PM EST [facility] RBC 4.2 3.8 - 4.8 x10-6 11/22/2016 12:55 PM EST [facility] HGB 11.5 11.5 - 16.0 g/dl 11/22/2016 12:55 PM EST [facility] HCT 36.8 35 - 47 % 11/22/2016 12:55 PM EST [facility] MCV 87.8 79 - 98 fl 11/22/2016 12:55 PM EST [facility] MCH 27.4 27 - 32 pg 11/22/2016 12:55 PM EST [facility] MCHC 31.3(L) 32 - 37 g/dl 11/22/2016 12:[address] [facility] RDW 14.8 11 - 15 % 11/22/2016 12:55 PM EST [facility] PLT COUNT 325 130 - 400 x10-3 11/22/2016 12:55 PM EST [facility] MEAN PLATELET VOLUME 11.3(H) 7 - 11 fl 11/22/2016 12:55 PM EST [facility] NEUT % 46.2 41 - 85 % 11/22/2016 12:55 PM EST [facility] LYMPH % 39.2 15 - 48 % 11/22/2016 12:55 PM [facility] MONO % 11.1 0 - 12 % 11/22/2016 12:55 PM [facility] EOS % 2.6 0 - 5 % 11/22/2016 12:55 PM [facility] BASO % 0.9 0 - 2 % 11/22/2016 12:55 PM [facility] 11/22/2016 9:59 AM EST 11/22/2016 9:59 AM EST Immanuel Rodriguez MD LAB Performing Organization Address [facility] de Phone Number [address] * (ABNORMAL) HEMOGLOBIN A1C (11/22/2016 9:59 AM EST) Glycosylated Hemoglobin A1C 9.7(H) 4.0 - 6.0 % 11/22/2016 2:20 PM EST [facility] Comment: HbA1C VALUES MAY NOT ACCURATELY REFLECT MEAN BLOOD GLUCOSE IN PATIENTS WITH HEMOGLOBIN VARIANTS SUCH HbF, HbS. 11/22/2016 9:59 AM EST 11/22/2016 9:59 AM EST Immanuel Rodriguez MD LAB Performing Organization Address [facility] Co de Phone Number [address] documented in this encounter Visit Diagnoses Diagnosis Uncontrolled type 2 diabetes mellitus with hyperosmolarity without coma, without long-term current use of insulin (HCC)- Primary Essential hypertension Unspecified essential hypertension Mild single current episode of major depressive disorder (HCC) documented in this encounter Care Teams Asset Management Lead Relationship Specialty Start Date End Date Immanuel Rodriguez MD [address] [place] [address] PCP - General Internal Medicine 07/29/14 Shona Funk PA-C [address] [place] [address] Cardiology 08/30/21 04/14/22 Narinder Yung DPM [address] [place] [address] Podiatry 08/20/23 08/25/23 documented as of this encounter
--- OUTSIDE RECORDS SUMMARY | 2025-03-28 05:57 | XMS_ITS | Encounter Summary ---
Author Organization [employer] [facility] Address [address] [place] [address] Care Team Providers Care Family Manager Name Role Phone Immanuel Rodriguez MD Primary Care Provider [phone] [phone] Reason for Visit * Reason Onset Date Comments TEST RESULTS 12/31/2023 Xray 12/18/2023 Encounter Details Date Type Department Care Team Description 12/31/2023 Telephone Adult Medicine - [place] [address] [place] [address] Immanuel Rodriguez MD [address] [place] [address] TEST RESULTS (Xray 12/18/2023) Social History Tobacco Use Types Packs/Day Years [...] How often do you attend [facility] or moravian services? More than 4 times per year 08/26/2023 Do you belong to any clubs o r organizations such as mosque groups, unions, fraternal or athletic groups, or [...] place to sleep or slept in a half-way (including now)? No 08/26/2023 Sex Assigned at Date Recorded Not on file Job Start Date Occupation Industry Not on file Not on file Not on file documented as of this encounter Miscellaneous Notes * Telephone Encounter - Christi Heard M.A. - 12/31/2023 11:39 AM EST Advised patient that I spoke with Dr. Malin and that she should contact the ordering specialist to get her ankle X-ray results. * Telephone Encounter - Ray Lobo - 12/31/2023 10:43 AM EST Inform patient: ANY URGENT OR ABNORMAL RESULTS WIILL RESULT IN A CALL BACK TO THE PATIENT DYLAN. Type of test: :Xray Date test was performed: 12/18/2023 Where was the test performed: [facility] Who ordered this test?: Brielle Myers Is the doctor here today?: YES Can the message wait until the doctor returns?: NO IF PATIENT'S PCP IS NOT IN INSTRUCT PATIENT THAT THEY WILL RECEIVE A CALL BACK WHEN THE PCP IS IN THE OFFICE NEXT. documented in this encounter Plan of Treatment Not on file documented as of this encounter Visit Diagnoses Not on filedocumented in this encounter Care Teams Family Manager Relationship Specialty Start Date End Date Immanuel Rodriguez MD [address] [place] [address] [place] [place] [address] PCP - General Internal Medicine 07/29/14 documented as of this encounter
--- OUTSIDE RECORDS SUMMARY | 2025-03-28 05:57 | XMS_ITS | Encounter Summary ---
Author Organization [facility] Address [address] [place] [address] Care Team Providers Care Production Troubleshooter Name Role Phone Immanuel Rodriguez MD Primary Care Provider [phone] [phone] Shona Funk PA-C Unavailable Unavailab Nairnder Damon DPMark Unavailable Unavailable Reason for Referral * EXTERNAL (Routine) - Authorized/Booked Specialty Diagnoses / Procedures Referred By Richard hitchcock Referred To Contact Endocrinology Procedures REFERRAL TO ENDOCRINOLOGY Immanuel Rodriguez MD [address] [place] [address] Brittany Jessica MD [address] [place] [address] Referral ID Status Reason Start Date Expiration Date V isits Requested Visits Authorized [id number] Authorized/B ooked 08/31/2021 12/14/2021 1 1 Reason for Visit * Reason Onset Date Comments 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 More than 4 times per year 08/26/2023 Do you belong to any clubs o r organizations such as voodoo groups, unions, fraternal or athletic groups, or [...] have Coronavirus / COVID-19? No / Unsure 08/14/2021 2:41 PM EDT documented as of this encounter Miscellaneous Notes * Telephone Encounter - Immanuel Rodriguez MD - 08/31/2021 8:26 AM EDT Order signed * Telephone Encounter - Yohana Lugo - 08/30/2021 2:15 PM EDT Please review this patients new referral request. The referral has been pended. Please complete thefollowing: If approved> sign order If denied>please give instructions and route to your practice nursing pool. Practice nurse should inform referrals and the patient if denied. documented in this encounter Plan of Treatment Not on file documented as of this encounter Visit Diagnoses Not on filedocumented in this encounter Care Teams Production Troubleshooter Relationship Specialty Start Date End Date Immanuel Rodriguez MD [address] [place] [address] PCP - General Internal Medicine 07/29/14 Shona Funk PA-C [address] [place] [address] Cardiology 08/30/21 04/14/22 Narinder Yung DPM [address] [place] [address] Podiatry 08/20/23 08/25/23 documented as of this encounter
--- OUTSIDE RECORDS SUMMARY | 2025-03-28 05:57 | XMS_ITS | Encounter Summary ---
Author Organization [facility] Address [address] [place] [address] Care Team Providers Care Roofer Applicator Name Role Phone Immanuel Rodriguez MD Primary Care Provider [phone] [phone] Shona Funk PA-C Unavailable Unavailab Narinder Damon DPMark Unavailable Unavailable Encounter Details Date Type Department Care Team Description 04/15/2021 Hospital Medical Records [address] [place] [address] Social History Tobacco Use Types Packs/Day Years [...] week 08/26/2023 How often do you attend [facility] or worship services? More than 4 times per year 08/26/2023 Do you belong to any clubs o r organizations such as yazdanism groups, unions, fraternal or athletic groups, or [...] place to sleep or slept in a halfway (including now)? No 08/26/2023 Sex Assigned at Date Recorded Not on file Job Start Date Occupation Industry Not on file Not on file Not on file documented as of this encounter Plan of Treatment Not on file documented as of this encounter Procedures Procedure Name Priority Date/Time Associated Diagnosis Comments OUTSIDE EKG Routine 04/15/2021 OUTSIDE PLAIN FILM Routine 04/15/2021 OUTSIDE LAB Routine 04/15/2021 documented in this encounter Results * OUTSIDE PLAIN FILM (04/15/2021) Provider Abstract RADIOLOGY * OUTSIDE LAB (04/15/2021) Provider Abstract LAB * OUTSIDE EKG (04/15/2021) Provider Abstract CARDIOLOGY documented in this encounter Visit Diagnoses Not on filedocumented in this encounter Care Teams Roofer Applicator Relationship Specialty Start Date End Date Immanuel Rodriguez MD [address] [place] [address] PCP - General Internal Medicine 07/29/14 Shona Funk PA-C [address] [place] [address] Cardiology 08/30/21 04/14/22 Narinder Yung DPM [address] [place] [address] Podiatry 08/20/23 08/25/23 documented as of this encounter
--- OUTSIDE RECORDS SUMMARY | 2025-03-28 05:57 | XMS_ITS | Encounter Summary ---
Author Organization [facility] Address [address] [place] [address] Care Team Providers Care Curriculum Development Coordinator Name Role Phone Immanuel Rodriguez MD Primary Care Provider [phone] [phone] Narinder Yung DPMark Unavailable Unavailable Encounter Details Date Type Department Care Team Description 06/26/2022 Orders Only Adult Medicine - [place] [address] [place] [address] Immanuel Rodriguez MD [address] [place] [address] Encounter for orthopedic aftercare following surgical amputation (Primary Dx); Type 2 diabetes mellitus with diabetic neuropathy, unspecified whether halfway insulin use (HCC); Essential (primary) hypertension; Type 2 diabetes mellitus with retinopathy without macular edema, unspecified laterality, unspecified retinopathy severity, unspecified whether long term acute care registered nurse insulin use (HCC); Atherosclerosis 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 pectoris, unspecified whether [place] or transplanted heart; Legal blindness, as defined in [place]; 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 More than 4 times per year 08/26/2023 Do you belong to any clubs o r organizations such as sabianist groups, unions, fraternal or athletic groups, or [...] Name Priority Date/Time Associated Diagnosis Comments OUTSIDE PATHOLOGY Routine 06/19/2022 documented in this encounter Results * OUTSIDE PATHOLOGY (06/19/2022) Narinder Yung DPM OUTSIDE LAB documented in this encounter Visit Diagnoses Diagnosis Encounter for orthopedic aftercare following surgical amputation- Primary Other orthopedic aftercare Type 2 diabetes mellitus with diabetic neuropathy, unspecified whether long term acute care registered nurse insulin use (HCC) Essential (primary) hypertension Unspecified essential hypertension Type 2 diabetes mellitus with retinopathy without macular edema, unspecified laterality, unspecified retinopathy severity, unspecified whether halfway insulin use (HCC) Atherosclerosis 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 pectoris, unspecified whether [place] tribe or transplanted heart Legal blindness, as defined in [place] Acquired absence of other right toe(s) (HCC) 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
--- OUTSIDE RECORDS SUMMARY | 2025-03-28 05:58 | XMS_ITS | Encounter Summary ---
Author Organization [facility] Address [address] [place] [address] Care Team Providers Care Bark Spudder Name Role Phone Immnauel Rodriguez MD Primary Care Provider [phone] [phone] Narinder Yung DPMark Unavailable Unavailable Encounter Details Date Type Department Care Team Description 10/05/2022 Home Health Certification Medical Records [address] [place] [address] Social History Tobacco Use Types Packs/Day Years [...] week 08/26/2023 How often do you attend [facility] or jehovah's witness services? More than 4 times per year 08/26/2023 Do you belong to any clubs o r organizations such as uatsdin groups, unions, fraternal or athletic groups, or [...] on filedocumented in this encounter Care Teams Bark Spudder Relationship Specialty Start Date End Date Immanuel Rodriguez MD [address] [place] [address] PCP - General Internal Medicine 07/29/14 Narinder Yung DPM [address] [place], [place] Podiatry 08/20/23 08/25/23 documented as of this encounter
--- OUTSIDE RECORDS SUMMARY | 2025-03-28 05:58 | XMS_ITS | Encounter Summary ---
Author Organization [facility] Address [address] [place] [address] Care Team Providers Care Rib Bender Name Role Phone Immanuel Rodriguez MD Primary Care Provider [phone] [phone] Shona Funk PA-C Unavailable Unavailab Narinder Damon DPMark Unavailable Unavailable Encounter Details Date Type Department Care Team Description 02/04/2022 Geospatial Applications Developer Report Medical Records [address] [place] [address] Tamera Walton Social History Tobacco Use Types Packs/Day Years [...] week 08/26/2023 How often do you attend [facility] or church services? More than 4 times per year 08/26/2023 Do you belong to any clubs o r organizations such as restorationist groups, unions, fraternal or athletic groups, or [...] place to sleep or slept in a longterm (including now)? No 08/26/2023 Sex Assigned at Date Recorded Not on file Job Start Date Occupation Industry Not on file Not on file Not on file COVID-19 Exposure Response Date Recorded In the last month, have you been in contact with someone who was confirmed or suspected to have Coronavirus / COVID-19? No / Unsure 01/21/2022 12:53 PM EDT documented as of this encounter Plan of Treatment Not on file documented as of this encounter Visit Diagnoses Not on filedocumented in this encounter Care Teams Rib Bender Relationship Specialty Start Date End Date Immanuel Rodriguez MD [address] [place], [place] PCP - General Internal Medicine 07/29/14 Shona Funk PA-C [address] [place], [place] Cardiology 08/30/21 04/14/22 Narinder Yung DPM [address] [place] [address] Podiatry 08/20/23 08/25/23 documented as of this encounter
--- OUTSIDE RECORDS SUMMARY | 2025-03-28 05:58 | XMS_ITS | Data Portability ---
Author Organization [facility], Main Office Address [address] [place] [address] Care Team Providers Care Tumbler Operator Name Role Phone JE[facility]ON [facility] [place]([address]) OTHER Assessment Encounter Date Assessment Date Assessment LastModified by Organization Details LastModified Time 10/30/2018 10/30/201810/02: wbc 9.4, hgb 9.8, hct 31, na 143, k 4.7, bun 19, creat 0.62 [email or web address] Not available 10/30/2018 08:22:15 11/20/2018 11/20/201810/02: wbc 9.4, hgb 9.8, hct 31, na 143, k 4.7, bun 19, creat 0.62 [email or web address] Not available 11/20/2018 11:40:59 11/21/2018 11/21/201810/02: wbc 9.4, hgb 9.8, hct 31, na 143, k 4.7, bun 19, creat 0.62 [email or web address] Not available 11/21/2018 19:46:54 Plan of Treatment Reminders Order Date Submit Date Provider Last Modified By Organization Details Last Modified Time Details Appointments None record ed. Lab None record ed. Referral None record ed. Procedures None record ed. Surgeries None record ed. Imaging None record ed. Medication Orders None record ed. Patient TargetsNo targets recorded. Patient Instructions Encounter Date Encounter Id Patient Instructions Last Modified By Organization Details Last Modified Time 11/20/2018 [id number] d/c home with meds, services on 11/21/18. f.u. with pcp in 2 weeks. f/u with vascular surg. as sched. [email or web address] Not available 11/20/2018 11:42:09 Reason for Referral None Reported. Problems Name Problem SNOMED Code Status Onset Date Resolution Date Notes Provider Name and Address Organization Details Recorded Time Diabetes mellitus 88718556 Active 2017 Betsy diallo, [facility] 8 21:29:28 Essential hypertensio n 81322099 Active 2017 Betsy diallo, [facility] 8 21:29:40 Peripheral gangrene 596963188 Completed 201708/02/2018 Betsy diallo, [facility] 8 21:30:46 Infection of foot 692875703 Active 2017 Betsy diallo, [facility] 8 21:30:05 Peripheral vascular disease 235729697 Active 2017 Betsy diallo, [facility] 8 21:30:17 Neuropathy 711431127 Active 2017 Betsy diallo, [facility] 8 21:32:44 Osteoarthri tis 653266887 Active 2017 Bashir Lui MD [address] [facility], [address], [place], [address], [facility] 8 13:17:23 Mixed hyperlipide gena 698355409 Active 2017 Bashir Lui MD [address] [facility], [address], [place], [address], [facility] [employer] [facility] 8 13:23:00 Gangrene of foot 773394903 Active 2017 Bashir Lui MD [address] [facility], [address], [place], [address], [facility] 8 13:40:39 Amputated below knee 717780848 Active 2017 Shannon Dean null, [facility] 8 10:07:01 Peripheral vascular disease 246271205 Active 2017 Shannon Dean null, [facility] 8 10:07:01 Diabetes mellitus 69877956 Active 2017 Shannon Dean null, [facility] 8 10:07:01 Essential hypertensio n 75808679 Active 2017 Shannon diallo, [facility] 8 10:07:01 [facility] 11547809 [facility] Osteoarthri tis 190086012 Active 2017 Shannon diallo, [facility] 8 10:07:01 Neuropathy due to diabetes mellitus 799943987 Active 2017 Shannon diallo, [facility] 8 10:07:01 Mixed hyperlipide gena 861231008 [facility] 10:[facility] Problem Notes None recorded. Medical Equipment None Reported. Allergies No known drug allergies Medications Not known to be on any medication Vitals Date Recorded Heart rate Respiratory rate Systolic blood pressure Diastolic blood pressure Provider Name and Address Organization Details Last Updated DateTime 10/30/2018 67 /min 15 /min 157 mm[Hg] 65 mm[Hg] Rianna Lopez [address] [place] [address] [address], [place], [address] , [facility] 10/30/2018 08:20:50 Date Recorded Heart rate Systolic blood pressure Diastolic blood pressure Provider Name and Address Organization Details Last Updated DateTime 11/19/2018 74 /min 108 mm[Hg] 55 mm[Hg] Priscila Lerner [facility] 11/19/2018 16:56:52 Social History Question Answer Notes LastModified by Organizat ion Details LastModified Time Tobacco Smoking Status Never Smoker Not Available [facility] 09/05/2020 03:13:20 Do You Have An Advance Directive? Yes DNR DNI [id number] Information not available 09/05/2020 How Much Tobacco Do You Chew? None [id number] Information not available 09/05/2020 Do You Have A Medical Power Of Movie Operator? No [id number] Information not available 09/05/2020 What Was The Date Of Your Most Recent Tobacco Screening? 11/09/2018 [id number] Information not available 09/05/2020 Sex: Unknown Functional Status Question Answer Note LastModified by Organization D etails LastModified Time What is your level of alcohol consumption? None [id number] Information not available 09/05/2020 Mental Status None recorded. Family History Relationship Description Onset Age of this Age Resolved Age Notes LastModified by Organization Details LastModified Time Father No current problems or disability [email or web address] Not available 10/05 10:07:01 Mother No current problems or disability [email or web address] Not available 10/05 10:07:01 Notes:N/C Medical History No medical history recorded. Gynecological HistoryNo gynecological history recorded. Obstetrics History GPAL:G 0 P 0 0 0 0 Immunizations Vaccine Type Date Status Note Provider Nam e and Address Organization Details Recorded Time influenza, unspecified formulation 08/14/2018 completed Nohemy Araujo [facility] 08/31/2018 13:05:57 Past Encounters Encounter ID Performer Location Encounter Start Date Encounter Closed Date Diagnosis/Indication Diagnosis SNOMED-CT Code Diagnosis ICD10 Code Diagnosis Note [id number] Betsy Bynum NP, [address] [place] [address] [facility] [place] [address] 08/02/2018 21:34:50 08/13/2018 10:48:53 Infection of foot 227047001 L08.9 wound care: left toe amputation with lodosrb and dry daily right heel ulcer silvadene and dry sterile dressing bid pt/ot f/u dr calderon 08/11/18 doxy bid for 14 days pain control with oxycodone pt alexandra nash switching surgeons, she will let us know her choices and we can help make appts for her provide supportive care Peripheral vascular disease 751753719 I73.9 continue plavix, aspirin, atorvastat in extensive hx of pvd Diabetes mellitus 958919 09 E11.69 continue metformin monitor fs qid if fs consistent ly >200 consider tighter control based on chronic wounds Essential hypertension 06197505 I10 metoprolol 50mg bid monitor hr/bp norvasc 5mg qday [id number] Bashir Lui MD [place] [address] [facility] [place] [address] 08/04/2018 13:10:17 08/13/2018 11:04:55 Peripheral vascular disease 791723031 I73.89 see HPIunderwe nt left lower extremity angiogram per summary however patient states this was right sideandrig ht heel ulcerunder went debridemen tsurgery discussed BKArefused by patient at this timemonito r sitecontin ue wound careplavix 75 mg qddoxycycl ine 100 mg bidadd probiotic8 1 mg qdPatient very interested in avoiding amputation - discusses this in depth Diabetes mellitus 686027 09 E11.9 metformin 500 mg qam, 250 mg qpmmonitor blood glucose Essential hypertension 71423768 I10 norvasc 5 mg qdmetoprol ol 50 mg bidmonitor bp Mixed hyperlipidemia 267 924528 E78.2 lipitor 40 mg qdcontinue Gangrene of foot 0365031 05 I96 dry gangrene right first toesee above [id number] Bashir Lui MD [address] [place] [address] 08/19/2018 16:08:43 08/20/2018 09:35:13 Peripheral vascular disease 317591886 I73.89 see HPIright heel ulcersurge ry again discussed BKAstill refused by patient at this timemonito r sitecontin ue wound careplavix 75 mg qddoxycycl ine 100 mg bid with stop date to be determined by surgerypat ient is waiting on second surgical opinion next weekwill then decide Gangrene of foot 5836809 05 I96 worsening conditiond ry gangrene right first toe [id number] Bashir Lui MD [address] [place] [address] 10/05/2018 09:03:08 10/19/2018 11:57:02 Amputated below knee 642796781 Z89.511 see HPIfailed conservati ve treatment for foot infection/ ulcer rightnow s/p BKAfollow ortho recsPT OT eval and treatmonit or for pain control and constipati on Peripheral vascular disease 376913523 I73.89 peripheral artery disease at baselinepl avix 75 mg qdASA 81 mg qdcurrentl y on lovenox for DVT prophylaxi s Diabetes mellitus 346576 09 E11.9 metformin 500 mg qam 250 mg q pmmonitor blood glucose Neuropathy due to diabetes mellitus 378935534 E11.42 gabapentin 200 mg qhsmonitor for pain control Essential hypertension 33500801 I10 metoprolol 50 mg bidnorvasc 5 mg qdmonitor bp Mixed hyperlipidemia 267 949690 E78.2 lipitor 40 mg qdcontinue [id number] [place] [address] 10/13/2018 11:06:44 10/19/2018 13:12:19 Amputated below knee 967008531 Z89.511 see HPIfailed conservati ve treatment for foot infection/ ulcer rightnow s/p BKA-I have performed a face to face exam of this patient and she will require a mobility device due to her BKA. Her additional medication conditions include DM ith advanced neuropathy , OA, rheumatic fever, legal blindness and PAD which significan tly affects her endurance as well as upper and lower extremity control to enable participat ion in mobility related ADL such as going to the kitchen to eat and the bathroom to toilet. It will also impact her ability to get dressed and complete grooming in a reasonable amount of time. The patients mobility issues can not be sufficient ly resolved by an appropriat antonio fitting cane or walker. A wheelchair will significan tly improve the patients ability to participat e in the above activities . The patient is unable to use a standard wheelchair and is willing to use the wheelchair on a regular basis in her home. Adjustable height arm rests are required to facilitate lateral transfers and this cannot be accommodat ed with non adjustable chair. The patient will be using the chair for at least two hours per day. Seat and back cushions are necessary to prevent skin breakdown as well. The patient requires elevating leg rests for elevation and support of right BKA as well as a for LLE elevation due to edema. Peripheral vascular disease 305010443 I73.89 peripheral artery disease at baselinepl avix 75 mg qdASA 81 mg qdcurrentl y on lovenox for DVT prophylaxi s Diabetes mellitus 521734 09 E11.9 metformin 500 mg qam 250 mg q pmmonitor blood glucose Neuropathy due to diabetes mellitus 281268284 E11.42 gabapentin 200 mg qhsmonitor for pain control [id number] [address]ASP[address] [address] 10/22/2018 11:31:09 11/05/2018 16:04:19 Amputated below knee 076486306 Z89.511 see HPIfailed conservati ve treatment for foot infection/ ulcer rightnow s/p BKA Peripheral vascular disease 573540560 I73.89 peripheral artery disease at baselinepl avix 75 mg qdASA 81 mg qdcurrentl y on lovenox for DVT prophylaxi s- will DC next week before discharge Diabetes mellitus 878681 09 E11.9 metformin 500 mg qam 250 mg q pmmonitor blood glucose Neuropathy due to diabetes mellitus 201330007 E11.42 gabapentin 200 mg qhsmonitor for pain control [id number] Rianna Lopez [address] [place], [place] [address] 10/30/2018 07:58:26 11/16/2018 20:30:37 Amputated below knee 845009461 Z89.511 s/p BKAsurgica l site secured with steri strips. d/c betadine and dry dsg.Contin ue with parimutuel clerk only at all times, remove for skin checks & skin care.follo w ortho recs,PT OT eval and treatmonit or for pain control and constipati on Peripheral vascular disease 740422168 I73.89 peripheral artery disease at baselinepl avix 75 mg qdASA 81 mg qdprophyla xis lovenox d/c'd on 10/27. Monitor Diabetes mellitus 173646 09 E11.9 metformin 500 mg qam 250 mg q pmmonitor blood glucose Neuropathy due to diabetes mellitus 667628708 E11.42 gabapentin 200 mg qhsmonitor for pain control Essential hypertension 08154810 I10 metoprolol 50 mg bidnorvasc 5 mg qdmonitor bp Mixed hyperlipidemia 267 640487 E78.2 lipitor 40 mg qdcontinue [id number] Bashir Lui MD [address] [place] [address] 11/09/2018 13:57:25 11/12/2018 12:21:21 Peripheral vascular disease 210570778 I73.89 peripheral artery disease at baselinepl avix 75 mg qdASA 81 mg qdrestart lovenox 40 mg sc qdrefer back to surgery for eval Amputated below knee 299 247609 Z89.511 s/p BKAfollow ortho recs,PT OT eval and treatmonit or for pain control and constipati oncontinue s to improve [id number] LARISSA TORO [address] [place], [place] [address] 11/19/2018 14:38:25 11/27/2018 09:47:55 Peripheral vascular disease 014240559 I73.89 peripheral artery disease at baselinepl avix 75 mg qdASA 81 mg qdrestart lovenox 40 mg sc qdrefer back to surgery for eval Amputated below knee 299 778308 Z89.511 s/p BKAfollow ortho recs,PT OT eval and treatmonit or for pain control and constipati oncontinue s to improve Open wound of toe 499209 002 S91.105D this is an unstageabl e area d/t darkened spot. Pt to f/u with vascualr as sched. continue current tx/care. [id number] PRISCILA LERNER, LARISSA [place] [address] [facility] [place] [address] 11/20/2018 10:21:06 11/27/2018 10:02:18 Peripheral vascular disease 462133408 I73.89 peripheral artery disease at baselinepl avix 75 mg qdASA 81 mg qdlovenox 40 mg sc qd- pt will go home with this until stopped by vascular.f /u with vasc. surg as sched. Amputated below knee 299 243293 Z89.511 s/p BKAfollow ortho recs,monit or for pain control and constipati oncontinue s to improve Diabetes mellitus 816436 09 E11.9 stable, continue metformin 500 mg qam 250 mg q pmmonitor blood glucose Neuropathy due to diabetes mellitus 508407337 E11.42 stable, continue gabapentin 200 mg qhs Essential hypertension 40684974 I10 stable, continueme toprolol 50 mg bidnorvasc 5 mg qdmonitor bp Mixed hyperlipidemia 267 199480 E78.2 lipitor 40 mg qd [id number] Betsy Bynum NP, [address] [place] [address] [facility] [place] [address] 11/21/2018 19:41:01 12/21/2018 11:06:36 Peripheral vascular disease 761410947 I73.89 d/c home with current medication s peripheral artery disease at baselinepl avix 75 mg qdASA 81 mg qdlovenox 40 mg sc qd- pt will go home with this until stopped by vascular.f /u with vasc. surg as sched. oxycodone prn pain management Amputated below knee 299 307510 Z89.511 s/p BKAfollow ortho recs,monit or for pain control and constipati onpt d/c home with oxycodone script/tyl enol Diabetes mellitus 890333 09 E11.9 continue metformin 500 mg qam 250 mg q pmmonitor blood glucose Neuropathy due to diabetes mellitus 893486869 E11.42 stable, continue gabapentin 200 mg qhs Essential hypertension 04830536 I10 stable, continueme toprolol 50 mg bidnorvasc 5 mg qdmonitor bp Mixed hyperlipidemia 267 179644 E78.2 lipitor 40 mg qd Health Concerns Section Related Observation LastModified by Organization Detai ls LastModified Time None Recorded Concern Status LastModified by Organization Details LastModified Time None Recorded Advance Directives Directive Y: DNR DNI Payers Encounter Date Sequence Insurance Name Policy Number Policy Forte Covered Member ID Forte Member ID Guarantor Name 10/30/2018 1 [place] [employer] [employer] Nevin E [place] [id number] [facility] 10/30/2018 2 [employer] HE[employer] OPTIONS (MEDICARE SUPPLEMENT) Nevin Ma [id number] [facility] [place] 11/09/2018 1 [place] [employer] Nevin E Ma [id number] Nevin Ma 11/09/2018 2 [employer] HE[employer] OPTIONS (MEDICARE SUPPLEMENT) Nevin Ma [id number] [facility] [place] 11/19/2018 1 [place] [employer] Nevin E Ma [id number] Nevin Ma 11/19/2018 2 [employer] OPTIONS (MEDICARE SUPPLEMENT) Nevin Ma [id number] Nevin Ma 11/20/2018 1 [place] [employer] Nevin E Ma [id number] Nevin Ma 11/20/2018 2 [employer] OPTIONS (MEDICARE SUPPLEMENT) Nevin Ma [id number] Nevin Ma 11/21/2018 1 [place] [employer] Nevin E Ma [id number] Nevin Ma 11/21/2018 2 [employer] OPTIONS (MEDICARE SUPPLEMENT) Nevin Ma [id number] [facility] Smither Notes Date Note Type Note Provider Name and Address Organization Details Recorded Time 018 text/h tml Patient is an 80 yo female admit from hospital after presenting with right foot ulcer required BKA after failing conservative treatment. Patient has prior toe amputation left side H significant forlegal blindnessdmOAneuropathyhtnperipheral artery disease Rianna Lopez [address] [facility], [address], [place], [address] , [employer] 11/12/2018 20:09:56 018 text/h tml Patient is a 63 yo female seen for acute rounding now with discolored area distal aspect first toe left foot. Initially admit from hospital after presenting with right foot ulcer required BKA after failing conservative treatment. Patient has prior toe amputation left side. Maintained on ASA, Plavix. Bashir Lui MD [address] [facility], [address], [place], [address] , [employer] 11/09/2018 14:03:49 019 text/h tml Patient is a 63 yo female with PVD/R BKA seen for acute rounding for f/u ofdiscolored area distal aspect second toe left foot (great toe is surgically absent). Patient has prior toe amputation left side. Maintained on ASA, Plavix. Priscila diallo [employer] [facility] 11/19/2018 17:02:10 019 text/h tml Patient is a 63 yo female with PVD/R BKA seen for discharge visit today. Initially admit from hospital after presenting with right foot ulcer required BKA after failing conservative treatment. Patient has prior toe amputation left side. Maintained on ASA, Plavix and newly lovenox. The lovenox was started last week when she developed a dark, ischemic looking area at her L 2nd toe tip. She is being followed by vascular surgery and will stay on lovenox until changed by vascular. She has now completed rehab and is ready for d/c home. She will go home on Priscila diallo [employer] [facility] 11/20/2018 11:42:29 019 text/h tm Patient is a 63 yo female with PVD/R BKA seen prior to d/c today. Was admitted from hospital after presenting with right foot ulcer required BKA after failing conservative treatment. Patient has prior toe amputation left side. Maintained on ASA, Plavix and newly lovenox. Lovenox was D/C but was resumed when last week when she developed a dark, ischemic looking area at her L 2nd toe tip. Vascular will see as outpt and decide when it will be d/c. She will be d/c home where she lives with her sister and brother. Her brother will be performing her lovenox injections and possibly her sister in the future. She will receive VNA/PT at home. She is stable for d/c home today. Her pain is under control and she is excited for d/c, she will be considered for prosthesis in future. Betsy diallo [place] - [employer] [facility] 11/21/2018 20:51:25 OBGyn Episode No OBEpisode recorded.
--- OUTSIDE RECORDS SUMMARY | 2025-03-28 05:58 | XMS_ITS | Encounter Summary ---
Author Organization [facility] Address [address] [place] [address] Care Team Providers Care Data Network Architect Name Role Phone Immanuel Rodriguez MD Primary Care Provider [phone] Shona Funk PA-C Unavailable Unavailab Narinder Damon DPMark Unavailable Unavailable Encounter Details Date Type Department Care Team Description 07/31/2018 Hospital Medical Records [address] [place] [address] Abstract, Provider Social History Tobacco Use Types [...] How often do you attend chur or yazidi services? More than 4 times per year 08/26/2023 Do you belong to any clubs o r organizations such as islam groups, unions, fraternal or athletic groups, or [...] on filedocumented in this encounter Care Teams Data Network Architect Relationship Specialty Start Date End Date Immanuel Rodriguez MD [address] [place], [place] PCP - General Internal Medicine 07/29/14 Shona Funk PA-C [address] [place] [address] Cardiology 08/30/21 04/14/22 Narinder Yung DPM [address] [place] [address] Podiatry 08/20/23 08/25/23 documented as of this encounter
--- OUTSIDE RECORDS SUMMARY | 2025-03-28 05:58 | XMS_ITS | Encounter Summary ---
Author Organization [facility] Address [address] [place] [address] Care Team Providers Care Ambulance Paramedic Name Role Phone Immanuel Rodriguez MD Primary Care Provider [phone] Narinder Yung DPMark Unavailable Unavailable Encounter Details Date Type Department Care Team Description 06/02/2023 Home Health Certification Medical Records [address] [place] [address] Social History Tobacco Use Types Packs/Day Years [...] week 08/26/2023 How often do you attend [facility] or taoist services? More than 4 times per year 08/26/2023 Do you belong to any clubs o r organizations such as baptism groups, unions, fraternal or athletic groups, or [...] place to sleep or slept in a snf (including now)? No 08/26/2023 Sex Assigned at Date Recorded Not on file Job Start Date Occupation Industry Not on file Not on file Not on file documented as of this encounter Plan of Treatment Not on file documented as of this encounter Visit Diagnoses Not on filedocumented in this encounter Care Teams Ambulance Paramedic Relationship Specialty Start Date End Date Immanuel Rodriguez MD [address] [place] [address] PCP - General Internal Medicine 07/29/14 Narinder Yung DPM [address], [place] Podiatry 08/20/23 08/25/23 documented as of this encounter
--- OUTSIDE RECORDS SUMMARY | 2025-03-28 05:58 | XMS_ITS | Encounter Summary ---
Author Organization [facility] Address [address] [place] [address] Care Team Providers Care Barrel Bung Remover And Dumper Name Role Phone Immanuel Rodriguez MD Primary Care Provider [phone] Narinder Yung DPMark Unavailable Unavailable Encounter Details Date Type Department Care Team Description 05/28/2022 Home Health Certification Medical Records [address] [place] [address] Social History Tobacco Use Types Packs/Day Years [...] week 08/26/2023 How often do you attend [facility] or alevism services? More than 4 times per year 08/26/2023 Do you belong to any clubs o r organizations such as mormon groups, unions, fraternal or athletic groups, or [...] place to sleep or slept in a group home (including now)? No 08/26/2023 Sex Assigned at Date Recorded Not on file Job Start Date Occupation Industry Not on file Not on file Not on file COVID-19 Exposure Response Date Recorded In the last 10 days, have yo u been in contact with someone who was confirmed or suspected to have Coronavirus/COVID-19? No / Unsure 05/22/2022 10:33 AM EDT documented as of this encounter Plan of Treatment Not on file documented as of this encounter Visit Diagnoses Not on filedocumented in this encounter Care Teams Barrel Bung Remover And Dumper Relationship Specialty Start Date End Date Immanuel Rodriguez MD [address] [place] [address] PCP - General Internal Medicine 07/29/14 Narinder Yung DPM [address] [place] [address] Podiatry 08/20/23 08/25/23 documented as of this encounter
--- OUTSIDE RECORDS SUMMARY | 2025-03-28 05:58 | XMS_ITS | Encounter Summary ---
Author Organization [facility] Address [address] [place] [address] Care Team Providers Care Sheriffs Name Role Phone Immanuel Rodriguez MD Primary Care Provider +1 [phone] Narinder Yung DPMark Unavailable Unavailable Encounter Details Date Type Department Care Team Description 12/04/2022 Home Health Certification Medical Records [address] [place] [address] Social History Tobacco Use Types Packs/Day Years [...] week 08/26/2023 How often do you attend [facility] or buddhism services? More than 4 times per year 08/26/2023 Do you belong to any clubs o r organizations such as religious groups, unions, fraternal or athletic groups, or [...] place to sleep or slept in a prison (including now)? No 08/26/2023 Sex Assigned at Date Recorded Not on file Job Start Date Occupation Industry Not on file Not on file Not on file documented as of this encounter Plan of Treatment Not on file documented as of this encounter Visit Diagnoses Not on filedocumented in this encounter Care Teams Sheriffs Relationship Specialty Start Date End Date Immanuel Rodriguez MD [address] [place] [address] PCP - General Internal Medicine 07/29/14 Narinder Yung DPM [address] [place], [place] Podiatry 08/20/23 08/25/23 documented as of this encounter
--- OUTSIDE RECORDS SUMMARY | 2025-03-28 05:58 | XMS_ITS | Encounter Summary ---
Author Organization [facility] Address [address] [place] [address] Care Team Providers Care Blast Furnace Checker Name Role Phone Immanuel Rodriguez MD Primary Care Provider [phone] [phone] Shona Funk PA-C Unavailable Unavailab Narinder Damon DPMark Unavailable Unavailable Encounter Details Date Type Department Care Team Description 07/27/2018 Hospital Medical Records [address] [place] [address] Mo Rhodes MD Social History Tobacco Use Types Packs/Day Years [...] week 08/26/2023 How often do you attend [facility] or jewish services? More than 4 times per year 08/26/2023 Do you belong to any clubs o r organizations such as mormonism groups, unions, fraternal or athletic groups, or [...] place to sleep or slept in a [facility] (including now)? No 08/26/2023 Sex Assigned at Date Recorded Not on file Job Start Date Occupation Industry Not on file Not on file Not on file documented as of this encounter Plan of Treatment Not on file documented as of this encounter Visit Diagnoses Not on filedocumented in this encounter Care Teams Blast Furnace Checker Relationship Specialty Start Date End Date Immanuel Rodriguez MD [address] [place] [address] PCP - General Internal Medicine 07/29/14 Shona Funk PA-C [address] [place] [address] Cardiology 08/30/21 04/14/22 Narinder Yung DPM [address] [place] [address] Podiatry 08/20/23 08/25/23 documented as of this encounter
--- OUTSIDE RECORDS SUMMARY | 2025-03-28 05:58 | XMS_ITS | Clinical Summary ---
Author Organization [facility] Address [address] [place] [address] Care Team Providers Care Brake Liner Name Role Phone Immanuel Rodriguez MD Primary Care Provider +1 [phone] Allergies No known active allergies Medications Medication Sig Dispensed Refills Start Date End Date Status Lutein 40 MG CAPS Take 40 mg by mouth daily. 0 Active Flaxseed, Linseed, (FLAXSEED OIL) 1000 MG CAPS Take by mouth. As needed 0 Active Bilberry, Vaccinium myrtillus, (BILBERRY EXTRACT OR) Take by mouth. 0 Active acetaminophen (TYLENOL) 500 MG tablet Take 1 Tablet by mouth every 6 hours as needed. 0 Active metformin (GLUCOPHAGE) 500 MG tablet Take 1 Tablet by mouth 2 times daily (with meals). 180 Tablet 1 08/22/2023 Active atorvastatin (LIPITOR) 40 MG tablet Take 1 Tablet by mouth at bedtime. 90 Tablet 1 11/19/2023 Active Santyl ointment APPLY TOPICALLY ONCE DAILY DIRECTED 0 03/24/2024 Active Xarelto 2.5 MG Tab 0 02/26/2024 Active oxyCODONE HCl 10 MG Tab Take 1 Tablet by mouth 3 times daily for 28 days. 84 Tablet 0 05/11/2024 Active Active Problems Patient Care Coordination No te Formatting of this note is d ifferent from the original. Checking Your Blood Sugars Please check your blood sugars every day. Please check your sugars at the following times of day: before breakfast, before dinner and after dinner Your Blood Sugar Goals Pre Meal: 90-130 2 hours after meals: 110-160 Bedtime: 110-150 Use the Results ?? Bring your glucometer to every appointment ?? Write your fingerstick blood sugars down on a log sheet or record book. Bring them to your appointment ?? Look for patterns in the numbers. The results help you and your provider make decisions about your diabetes treatment plan. Your Results and your Goals Your Result / Date of Completion Your Goal / How Often to Assess Component Value Date HGBA1C 6.3 11/23/2013 Less than 7%--- 2-4 times per year BP Readings from Last 1 Encounters: 12/13/13 130/72 Less than 130/80--- once per year Component Value Date LDL 182 11/23/2013 LDL less than 100--- once per year Component Value Date MALBUR < 3.0 11/23/2013 Less than 30--- once per year Wt Readings from Last 1 Encounters: 12/13/13 190 lb 3.2 oz (86.274 kg) Your goal weight by next visit: 186 --- reassess 2-4 times a year Health Maintenance Due Topic Date Due ? ? Hepatitis C Screening 1971 ? ? Adult Immunization: Pneumovax For High Risk Patients (#1) 1971 ? ? Adult Immunization: Tetanus Diptheria And Pertussis (Tdap) 1972 ? ? Pap Smear 1974 ? ? Mammogram 1993 ? ? Colon Cancer Screening 2003 ? ? Baseline Health Exam 40-64 04/10/2013 ? ? Adult Immunization: Zostavax For Patients Over 60 2013 ? ? Adult Immunization: Influenza For High Risk Patients 07/11/2013 Your Action Plan Your diabetes is well controlled and no changes are required to your current plan. Check blood glucose as directed and write down all results. Check feet for sores every day Avoid walking in bare or stocking feet due to the numbness in your feet Increase physical activity Contact me if you experience any barriers to care such as inability to purchase your medication, difficulty getting to your appointments or difficulty understanding your care plan Avoid alcohol Please get your pneumonia shot Please get your yearly flu shot When to Call your Healthcare Provider If your blood sugar falls below 70 and you do not know why or you become unconscious If you are sick and unable to take liquids because or nausea or vomiting If you have a fever over 101 If your blood sugar is 300 or higher on greater than 3 separate occasions during the same week If you are just unsure what to do Educational Resources [place] Diabetes Association (www.diabetes.org) Centers for Disease Control and Prevention (www.cdc.gov/diabetes) This care plan was created in collaboration with Nevin Ma on 12/13/2013 Problem Noted Date Toe ulcer due to DM 02/28/2022 Overview: Left second toe. Status postdebridement. To be following with Dr. Shana ANN Chronic prescription opiate use 01/22/20 22 Type 2 diabetes mellitus with eye manife stations 01/04/2022 Overview: Diabetic retinopathy, macula edema. Dr. Hunter Hypertensive retinopathy of both eyes Overview: Dr. 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 Nuclear sclerosis 01/04/2022 Overview: Cataract surgery recommnded, patient declined. 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/2018 Overview: Dry gangrene Hypertriglyceridemia 12/13/2013 Overview: IMO update Diabetes mellitus type II, uncontrolled 08/02/2013 Hypertension 08/02/2013 Major depression 08/02/2013 Immunizations Name Administration Dates Next Due COVID-19 (Pfizer) Pt Reported 03/04/2021, 021 Pneumoccoccal(Adult) Polysaccharide PPSV23 12/13 TD (STATE SUPPLIED FOR ADULTS AND CHILDREN) 0611/2003 Tdap 12/13/2013 Family History Medical History Relation Name Comments No Known Problems Brother CAD Father Diabetes Father Depression Mother Diabetes Mother Hypertension Mother Stroke Mother Thyroid Disorder Mother CA Lung Paternal Grandfather CA Ovarian Sister Mental Disorder Sister Thyroid Disorder Sister ca rectal Sister Relation Name Status Comments Brother Alive no medical prob lems Father diabetes Maternal Grandmother (Age 59) [facility] Mother (Age 77) stroke age 75 diabetes- HTN- thyroid - depression- rheumatoid arthritis Paternal Grandfather (Age 70's ) diabetes Paternal Grandmother Alive no medi mariana problems Sister Alive precancer ovari an - surgically removed Social History Tobacco Use Types Packs/Day Years Used Date Smoking Tobacco: Never Smokeless Tobacco: Never Tobacco Cessation:Counseling Given: Not Answered Alcohol Use Standard Drinks/Week Comments No 0 [...] do you attend [facility] or confucianism services? More than 4 times per year 08/26/2023 Do you belong to any clubs o r organizations such as sikhism groups, unions, fraternal or athletic groups, or [...] place to sleep or slept in a long term (including now)? No 08/26/2023 Sex Assigned at Date Recorded Not on file Job Start Date Occupation Industry Not on file Not on file Not on file Last Filed Vital Signs Vital Sign Reading Time Taken Comments Blood Pressure 128/66 05/05/2024 11:36 AM EDT Pulse 88 05/05/2024 11:36 AM EDT Temperature 35.9 ??C (96.6 ??F) 05/05/2024 11:36 AM E DT Respiratory Rate 14 01/07/2020 9:40 AM EST Oxygen Saturation 96% 06/01/2021 10:08 AM EDT Inhaled Oxygen Concentration - - Weight 72.6 kg (160 lb) 05/05/2024 11:36 AM EDT as per pt Height 162.6 cm (5' 4 ) 05/05/2024 11:36 AM EDT Body Mass Index 27.46 05/05/2024 11:36 AM EDT Plan of Treatment Health Maintenance Due Date Last Done Comments MAMMOGRAM 1993 COLON CANCER SCREENING 2003 SHINGLES VACCINE (1 of 2) 2003 DIABETES: ANNUAL FOOT EXAM 03/31/201803/31 (External Completion), 10/19/2014, 12/13/2013 (Completed) BONE DENSITY SCREENING 2018 PNEUMOCOCCAL VACCINE (2 - PCV) 2018 12/13/2013 DIABETES: ANNUAL EYE EXAM 12/25/20222021, 11/11/2017, 11/11/2017 (External Completion), Additional history exists DTAP/TDAP/TD (2 - Td or Tdap) 12/13/2023 12/13/2013, 04/10/2004 DIABETES: BLOOD SUGAR CONTRO L TEST (HGBA1C) 03/01/2024 12/01/2023, 08/19/2023, 12/27/2022, Additional history exists Covid-19 Vaccine (2022-2 4 season) 2024 03/04/2021, 02/09/2021 DEPRESSION SCREEN 08/26/2024 08/26/2023, , 11/26/2018, Additional history exists FALL RISK ASSESSMENT 08/26/2024 08/26/2023, 04/15/2022, 08/03/2021, Additional history exists BMI CHECK/ADVISE 11/10/2024 03/16/2018 DIABETES/HEART DISEASE: YOMAIRA AL CHOLESTEROL (LDL) 12/01/2024 12/01/2023, 12/27/2022, 12/20/2021, Additional history exists DIABETES: ANNUAL URINE PROTE IN TEST (MICROALBUMIN) 12/08/2024 12/08/2023, 04/15/2017, 11/23/2013 INFLUENZA (Season Ended) 2025 11/24/2017 (Refu sed) HEPATITIS C SCREENING Completed 05/11/2014 Care Teams Brake Liner Relationship Specialty Start Date End Date Immanuel Rodriguez MD [address] [place] [address] PCP - General Internal Medicine 07/29/14
--- OUTSIDE RECORDS SUMMARY | 2025-03-28 05:58 | XMS_ITS | Encounter Summary ---
Author Organization [facility] Address [address] [place] [address] Care Team Providers Care Controls Project Engineer Name Role Phone Immanuel Rodriguez MD Primary Care Provider [phone] [phone] Shona Funk PA-C Unavailable Unavailab Narinder Damon DPMark Unavailable Unavailable Encounter Details Date Type Department Care Team Description 01/15/2021 Hospital Medical Records [address] [place] [address] Social History Tobacco Use Types Packs/Day Years [...] you attend [facility] or sabianism services? More than 4 times per year 08/26/2023 Do you belong to any clubs o r organizations such as mandaen groups, unions, fraternal or athletic groups, or [...] place to sleep or slept in a assisted (including now)? No 08/26/2023 Sex Assigned at Date Recorded Not on file Job Start Date Occupation Industry Not on file Not on file Not on file documented as of this encounter Plan of Treatment Not on file documented as of this encounter Procedures Procedure Name Priority Date/Time Associated Diagnosis Comments OUTSIDE NUCLEAR STRESS TEST Routine 01/17/2021 OUTSIDE NUCLEAR STRESS TEST Routine 01/17/2021 OUTSIDE ECHO Routine 01/16/2021 documented in this encounter Results * OUTSIDE NUCLEAR STRESS TEST (01/17/2021) Provider Abstract CARDIOLOGY * OUTSIDE NUCLEAR STRESS TEST (01/17/2021) Provider Abstract CARDIOLOGY * OUTSIDE ECHO (01/16/2021) Provider Abstract CARDIOLOGY documented in this encounter Visit Diagnoses Not on filedocumented in this encounter Care Teams Controls Project Engineer Relationship Specialty Start Date End Date Immanuel Rodriguez MD [address] [place] [address] PCP - General Internal Medicine 07/29/14 Shona Funk PA-C [address] [place] [address] Cardiology 08/30/21 04/14/22 Narinder Yung DPM [address] [place] [address] Podiatry 08/20/23 08/25/23 documented as of this encounter
--- OUTSIDE RECORDS SUMMARY | 2025-03-28 05:58 | XMS_ITS | Encounter Summary ---
Author Organization [facility] Address [address] [place] [address] Care Team Providers Care Central Lab Technician Name Role Phone Immanuel Rodriguez MD Primary Care Provider [phone] [phone] Shona Funk PA-C Unavailable Unavailab Narinder Damon DPMark Unavailable Unavailable Encounter Details Date Type Department Care Team Description 03/29/2022 Home Health Certification Medical Records [address] [place] [address] Social History Tobacco Use Types Packs/Day Years [...] How often do you attend chur or taoism services? More than 4 times per year 08/26/2023 Do you belong to any clubs o r organizations such as quaker groups, unions, fraternal or athletic groups, or [...] place to sleep or slept in a retirement (including now)? No 08/26/2023 Sex Assigned at Date Recorded Not on file Job Start Date Occupation Industry Not on file Not on file Not on file documented as of this encounter Plan of Treatment Not on file documented as of this encounter Visit Diagnoses Not on filedocumented in this encounter Care Teams Central Lab Technician Relationship Specialty Start Date End Date Immanuel Rodriguez MD [address] [place], [place] PCP - General Internal Medicine 07/29/14 Shona Funk PA-C [address] [place] [address] Cardiology 08/30/21 04/14/22 Narinder Yung DPM [address] [place] [address] Podiatry 08/20/23 08/25/23 documented as of this encounter
--- OUTSIDE RECORDS SUMMARY | 2025-03-28 05:58 | XMS_ITS | Encounter Summary ---
Author Organization [facility] Address [address] [place] [address] Care Team Providers Care State Director Name Role Phone Immanuel Rodriguez MD Primary Care Provider [phone] [phone] Shona Funk PA-C Unavailable Unavailab Narinder Damon DPMark Unavailable Unavailable Reason for Visit * Reason Onset Date Comments Error 04/03/2022 Encounter Details Date Type Department Care Team Description 04/03/2022 Refill Adult Medicine - [place] [address] [place] [address] Immanuel Rodriguez MD [address] [place] [address] Error Social History Tobacco Use Types Packs/Day [...] week 08/26/2023 How often do you attend [facility] or samaritan services? More than 4 times per year 08/26/2023 Do you belong to any clubs o r organizations such as muslim groups, unions, fraternal or athletic groups, or [...] encounter Miscellaneous Notes * Telephone Encounter - Amber Wade - 04/03/2022 1:52 PM EDT error documented in this encounter Plan of Treatment Not on file documented as of this encounter Visit Diagnoses Not on filedocumented in this encounter Care Teams State Director Relationship Specialty Start Date End Date Immanuel Rodriguez MD [address] [place], [place] PCP - General Internal Medicine 07/29/14 Shona Funk PA-C [address] [place], [place] Cardiology 08/30/21 04/14/22 Narinder Yung DPM [address] [place], [place] Podiatry 08/20/23 08/25/23 documented as of this encounter
--- OUTSIDE RECORDS SUMMARY | 2025-03-28 05:58 | XMS_ITS | Encounter Summary ---
Author Organization [facility] Address [address] [place] [address] Care Team Providers Care Entertainment Dancer Name Role Phone Immanuel Rodriguez MD Primary Care Provider [phone] [phone] Shona Funk PA-C Unavailable Unavailab Narinder Damon DPMark Unavailable Unavailable Encounter Details Date Type Department Care Team Description 03/12/2018 Solar Process Engineer Report Medical Records [address] [place] [address] Immanuel Rodriguez, [address] [place] [address] Social History Tobacco Use Types Packs/Day Years [...] often do you attend [facility] or anglican services? More than 4 times per year 08/26/2023 Do you belong to any clubs o r organizations such as zoroastrianism groups, unions, fraternal or athletic groups, or [...] on filedocumented in this encounter Care Teams Entertainment Dancer Relationship Specialty Start Date End Date Immanuel Rodriguez MD [address] [place] [address] PCP - General Internal Medicine 07/29/14 Shona Funk PA-C [address] [place] [address] Cardiology 08/30/21 04/14/22 Narinder Yung DPM [address] [place] [address] Podiatry 08/20/23 08/25/23 documented as of this encounter
--- OUTSIDE RECORDS SUMMARY | 2025-03-28 05:58 | XMS_ITS | Encounter Summary ---
Author Organization [facility] Address [address] [place] [address] Care Team Providers Care Triage Assistant Name Role Phone Immanuel Rodriguez MD Primary Care Provider +1 [phone] Shona Funk PA-C Unavailable Unavailab Narinder Damon DPMark Unavailable Unavailable Reason for Visit * Reason Onset Date Comments Error 12/06/2021 Encounter Details Date Type Department Care Team Description 12/06/2021 Telephone Adult Medicine - [place] [address] [place] [address] Immanuel Rodriguez MD [address] [place] [address] Error Social History Tobacco Use Types Packs/Day [...] week 08/26/2023 How often do you attend [facility] or mormon services? More than 4 times per year 08/26/2023 Do you belong to any clubs o r organizations such as bahai groups, unions, fraternal or athletic groups, or [...] on filedocumented in this encounter Care Teams Triage Assistant Relationship Specialty Start Date End Date Immanuel Rodriguez MD [address] [place] [address] PCP - General Internal Medicine 07/29/14 Shona Funk PA-C [address] [place], [place] Cardiology 08/30/21 04/14/22 Narinder Yung DPM [address] [place] [address] Podiatry 08/20/23 08/25/23 documented as of this encounter
--- OUTSIDE RECORDS SUMMARY | 2025-03-28 05:58 | XMS_ITS | Encounter Summary ---
Author Organization [employer] [facility] Address [address] [place] [address] Care Team Providers Care Night Shift Supervisor Name Role Phone Immanuel Rodriguez MD Primary Care Provider [phone] [phone] Narinder Yung DPMark Unavailable Unavailable Reason for Visit * Reason Onset Date Comments Provider Call Back 05/20/2022 Encounter Details Date Type Department Care Team Description 05/20/2022 Telephone Adult Medicine [facility] [address] [place] [address] Immanuel Rodriguez MD [address] [place] [address] Provider Call Back Social History Tobacco Use Types Packs/Day Years [...] week 08/26/2023 How often do you attend [facility] or holiness services? More than 4 times per year 08/26/2023 Do you belong to any clubs o r organizations such as episcopalian groups, unions, fraternal or athletic groups, or [...] place to sleep or slept in a fci (including now)? No 08/26/2023 Sex Assigned at [...] AM EDT documented as of this encounter Miscellaneous Notes * Telephone Encounter - Immanuel Rodriguez MD - 05/20/2022 3:30 PM EDT Call patient x2 left message for her to call if there is a need * Telephone Encounter - Tyra Grigsby - 05/20/2022 10:05 AM EDT Caller requesting call back from provider: Is the caller the patient? YES If caller is not the patient, what is the callers name? N/A Callers relationship to patient? N/A If person calling is not the patient themselves, is there a verbal release in FYI or permanent comments for this person: NO Reason for call back: Patient is requesting to discuss her pain medicine. Patient reports she has been taking her pain medicine more than once a day. Please advise Caller offered to speak with the nurse for assistance: YES Response: Patient offered to speak with nurse for assistance and patient agreed. Message forwarded to nurse. documented in this encounter Plan of Treatment Not on file documented as of this encounter Visit Diagnoses Not on filedocumented in this encounter Care Teams Night Shift Supervisor Relationship Specialty Start Date End Date Immanuel Rodriguez MD [address] [place] [address] PCP - General Internal Medicine 07/29/14 Narinder Yung DPM [address] [place] [address] Podiatry 08/20/23 08/25/23 documented as of this encounter
--- OUTSIDE RECORDS SUMMARY | 2025-03-28 05:58 | XMS_ITS | Encounter Summary ---
Author Organization [facility] Address [address] [place] [address] Care Team Providers Care Team Physician Name Role Phone Tonia Jc DO Primary Care Provider Unavailmitch Rodriguez Ch MD Primary Care Provider [phone] [phone] Shona Funk PA-C Unavailable Unavailab Narinder Damon DPM Unavailable Unavailable Encounter Details Date Type Department Care Team Description 08/12/2013 Abstract Adult Medicine - [place] [address] [place] [address] Tonia Jc DO Social History Tobacco Use Types Packs/Day [...] week 08/26/2023 How often do you attend [facility] or religion services? More than 4 times per year 08/26/2023 Do you belong to any clubs o r organizations such as scientologist groups, unions, fraternal or athletic groups, or [...] on filedocumented in this encounter Care Teams Team Physician Relationship Specialty Start Date End Date Tonia Jc DO PCP - General Internal Medicine 07/14/13 07/28/14 Immanuel Rodriguez MD [address] [place], [place] PCP - General Internal Medicine 07/29/14 Shona Funk PA-C [address] [place], [place] Cardiology 08/30/21 04/14/22 Narinder Yung DPM [address] [place], [place] Podiatry 08/20/23 08/25/23 documented as of this encounter
--- OUTSIDE RECORDS SUMMARY | 2025-03-28 05:58 | XMS_ITS | Encounter Summary ---
Author Organization [facility] Address [address] [place] [address] Care Team Providers Care Jack Winder Name Role Phone Immanuel Rodriguez MD Primary Care Provider [phone] [phone] Shona Funk PA-C Unavailable Unavailab Narinder Damon DPMark Unavailable Unavailable Reason for Visit * Reason Onset Date Comments Pre-visit Diabetes Lab Adult Medicine 07/26/201908/09 Encounter Details Date Type Department Care Team Description 07/26/2019 Telephone Adult Medicine - [place] [address] [place] [address] Immanuel Rodriguez MD [address] [place] [address] Pre-visit Diabetes Lab Adult Medicine (08/09) Social [...] often do you attend chur ch or sabianist services? More than 4 times per year [...] * Telephone Encounter - Teresa Oreilly - 07/26/2019 10:57 AM EDT Sent patient an email advising them to complete diabetic lab work at least three days prior to their upcoming appointment. documented in this encounter Plan of Treatment Not on file documented as of this encounter Results * (ABNORMAL) HEMOGLOBIN A1C (07/27/2019 10:01 AM EDT) GLYCATED HEMOGLOBIN A1C 6.7(H) <6.5 % 07/27/2019 1:46 PM EDT [facility] ESTIMATED AVERAGE GLUCOSE 146 mg/dL 07/27/2019 1:46 PM EDT [facility] 07/27/2019 10:0 1 AM EDT 07/27/2019 10:02 AM EDT Immanuel Rodriguez MD [facility] documented in this encounter Visit Diagnoses Diagnosis Uncontrolled type 2 diabetes mellitus with hyperglycemia (HCC)- Primary documented in this encounter Care Teams Jack Winder Relationship Specialty Start Date End Date Immanuel Rodriguez MD [address] [place] [address] PCP - General Internal Medicine 07/29/14 Shona Funk PA-C [address] [place] [address] Cardiology 08/30/21 04/14/22 Narinder Yung DPM [address] [place] [address] Podiatry 08/20/23 08/25/23 documented as of this encounter
--- OUTSIDE RECORDS SUMMARY | 2025-03-28 05:58 | XMS_ITS | Encounter Summary ---
[facility] Organization [facility] Address [address] [place] [address] Care Team Providers Care Product Safety Coordinator Name Role Phone Immanuel Rodriguez MD Primary Care Provider +1 -[phone] Reason for Visit * Reason Onset Date Comments Faxed Order 01/21/2024 Faxed Order Clie nt Coordination Note Encounter Details Date Type Department Care Team Description 01/21/2024 Telephone Adult Medicine [facility] [address] [place] [address] Immanuel Rodriguez MD [address] [place] [address] Faxed Order (Faxed Order Client Coordination Note) Social History Tobacco Use Types Packs/Day Years [...] How often do you attend [facility] or baptism services? More than 4 times per year 08/26/2023 Do you belong to any clubs o r organizations such as jewish groups, unions, fraternal or athletic groups, or [...] place to sleep or slept in a nursing home (including now)? No 08/26/2023 Sex Assigned at Date Recorded Not on file Job Start Date Occupation Industry Not on file Not on file Not on file documented as of this encounter Miscellaneous Notes * Telephone Encounter - Christi Heard M.A. - 01/22/2024 10:59 AM EDT Faxed, confirmed and filed. * Telephone Encounter - Efrain Ayoub M.A. - 01/22/2024 9:55 AM EDT [facility] * Telephone Encounter - Marlena Gibson - 01/21/2024 4:45 PM EDT . PLEASE CLOSE ( SIGN ENCOUNTER) MESSAGE WHEN ORDER HAS BEEN FAXED Faxed order Client Coordination Note received from Vicki, requesting signature from provider.Please sign and fax back to [phone]. Faxed order in PCP's folder ( orange) at check out. documented in this encounter Plan of Treatment Not on file documented as of this encounter Visit Diagnoses Not on filedocumented in this encounter Care Teams Product Safety Coordinator Relationship Specialty Start Date End Date Immanuel Rodriguez, [address] [place] [address] PCP - General Internal Medicine 07/29/14 documented as of this encounter
--- OUTSIDE RECORDS SUMMARY | 2025-03-28 05:58 | XMS_ITS | Encounter Summary ---
Author Organization [facility] Address [address] [place] [address] Care Team Providers Care Substation Superintendent Name Role Phone Immanuel Rodriguez MD Primary Care Provider +1 -[phone] Shona Funk PA-C Unavailable Unavailab Narinder Damon DPMark Unavailable Unavailable Encounter Details Date Type Department Care Team Description 02/03/2022 Plate Preparer Report Medical Records [address] [place] [address] Social History Tobacco Use Types Packs/Day Years [...] week 08/26/2023 How often do you attend [facility] or restoration services? More than 4 times per year 08/26/2023 Do you belong to any clubs o r organizations such as yarsanism groups, unions, fraternal or athletic groups, or [...] on filedocumented in this encounter Care Teams Substation Superintendent Relationship Specialty Start Date End Date Immanuel Rodriguez MD [address] [place] [address] PCP - General Internal Medicine 07/29/14 Shona Funk PA-C [address] [place], [place] Cardiology 08/30/21 04/14/22 Narinder Yung DPM [address] [place] [address] Podiatry 08/20/23 08/25/23 documented as of this encounter
--- OUTSIDE RECORDS SUMMARY | 2025-03-28 05:58 | XMS_ITS | Encounter Summary ---
[facility] Organization [facility] Address [address] [place] [address] Care Team Providers Care Computer Consultant Name Role Phone Immanuel Rodriguez MD Primary Care Provider +1 -[phone] Reason for Visit * Reason Onset Date Comments Faxed Order 03/05/2024 Faxed Order [id number] Encounter Details Date Type Department Care Team Description 03/05/2024 Telephone Adult Medicine - [place] [address] [place] [address] Immanuel Rodriguez MD [address] [place] [address] Faxed Order (Faxed Order [id number]) Social History Tobacco Use Types Packs/Day Years [...] you attend [facility] or rastafarian services? More than 4 times per year 08/26/2023 Do you belong to any clubs o r organizations such as christian groups, unions, fraternal or athletic groups, or [...] Telephone Encounter - Christi Heard M.A. - 03/09/2024 9:40 AM EDT Faxed, confirmed and filed. * Telephone Encounter - India Montejo M.A. - 03/08/2024 10:00 AM EDT Received form placed in Dr Daren Malin's in box * Telephone Encounter - Marlena Gibson - 03/05/2024 12:24 PM EDT . PLEASE CLOSE ( SIGN ENCOUNTER) MESSAGE WHEN ORDER HAS BEEN FAXED Faxed order [id number] received from Vicki Mcknight, requesting signature from provider. Please sign and fax back to [phone]. Faxed order in PCP's folder ( orange) at check out. documented in this encounter Plan of Treatment Not on file documented as of this encounter Visit Diagnoses Not on filedocumented in this encounter Care Teams Computer Consultant Relationship Specialty Start Date End Date Immanuel Rodriguez MD [address] [place] [address] PCP - General Internal Medicine 07/29/14 documented as of this encounter
--- OUTSIDE RECORDS SUMMARY | 2025-03-28 05:58 | XMS_ITS | Encounter Summary ---
Author Organization [facility] Address [address] [place] [address] Care Team Providers Care Charge Master Coordinator Name Role Phone Betsy Rodriguez MD Primary Care Prov ider Encounter Details Date Type Department Care Team (Late st Contact Info) Description 09/17/2024 Lab Requisition [facility] Main Lab [address] [facility] [place] [phone] Mark Anthony Simpson MD [address] [place] [address] Essential (primary) hypertension; Type 2 diabetes mellitus [...] LAB CHEMISTRY METHOD 09/17/2024 9:14 AM EST [facility] Blood Venous blood specimen / Unknown Venipuncture / Unknown 09/17/2024 5:38 AM EST 09/17/2024 8:06 AM EST Mark Anthony Simpson MD LAB BLOOD ORDERABLES Final Result Performing Organization Address City/[facility]/ZIP Co de Phone Number [facility] [address] [place] [address], [place] [phone] * (ABNORMAL) Sedimentation rate (09/17/2024 5:38 AM EST) Sed Rate 97(H) 0 - 30 mm/hr LAB HEMETOLOGY METHOD 09/17/2024 8:33 AM EST [facility] Blood Venous blood specimen / Unknown Venipuncture / Unknown 09/17/2024 5:38 AM EST 09/17/2024 8:06 AM EST Mark Anthony Simpson MD LAB BLOOD ORDERABLES Final Result [facility] [address] [place] [address], [place] [phone] * (ABNORMAL) Comprehensive metabolic panel (09/17/2024 5:38 AM EST) Sodium 139 133 - 145 mmol/L LAB CHEMISTRY METHOD 09/17/2024 9:[address] [facility] Potassium 5.0 3.5 - 5.5 mmol/L LAB CHEMISTRY METHOD 09/17/2024 9:[address] [facility] Comment:Hemolysis present Chloride 106 96 - 110 mmol/L LAB CHEMISTRY METHOD 09/17/2024 9:[address] [facility] CO2 27 21 - 32 mmol/L LAB CHEMISTRY METHOD 09/17/2024 9:[address] [facility] Anion Gap 6 3 - 11 LAB CHEMISTRY METHOD 09/17/2024 9:[address] [facility] Glucose 92 70 - 100 mg/dL LAB CHEMISTRY METHOD 09/17/2024 9:[address] [facility] BUN 27(H) 5 - 25 mg/dL LAB CHEMISTRY METHOD 09/17/2024 9:[address] [facility] Creatinine 0.58 0.50 - 1.10 mg/dL LAB CHEMISTRY METHOD 09/17/2024 9:[address] [facility] eGFR 97 >=60 mL/min/1. 73m2 LAB CHEMISTRY METHOD 09/17/2024 9:[address] [facility] Comment:Calculation based on the??Chronic Kidney Disease Epidemiology Collaboration (CKD-EPI) equation refit??without adjustment for race. BUN/Creatinine Ratio 46.6 LAB CHEMISTRY METHOD 09/17/2024 9:[address] [facility] Calcium 10.3 8.5 - 10.5 mg/dL LAB CHEMISTRY METHOD 09/17/2024 9:[address] [facility] AST (SGOT) 22 10 - 42 unit/L LAB CHEMISTRY METHOD 09/17/2024 9:[address] [facility] Comment:Hemolysis present ALT (SGPT) 9(L) 10 - 60 unit/L LAB CHEMISTRY METHOD 09/17/2024 9:[address] [facility] Alkaline Phosphatase 73 42 - 121 unit/L LAB CHEMISTRY METHOD 09/17/2024 9:[address] [facility] Total Protein 6.2 6.0 - 8.0 g/dL LAB CHEMISTRY METHOD 09/17/2024 9:[address] [facility] Albumin 2.6(L) 3.2 - 5.0 g/dL LAB CHEMISTRY METHOD 09/17/2024 9:[address] [facility] Total Bilirubin 0.3 0.0 - 1.4 mg/dL LAB CHEMISTRY METHOD 09/17/2024 9:[address] [facility] Blood Venous blood specimen / Unknown Venipuncture / Unknown 09/17/2024 5:38 AM EST 09/17/2024 8:06 AM EST Mark Anthony Simpson MD LAB BLOOD ORDERABLES Final Result [facility] [address] [place] [address], * (ABNORMAL) Complete blood count (09/17/2024 5:38 AM EST) WBC 10.6 4.8 - 10.8 K/[facility] LAB HEMETOLOGY METHOD 09/17/2024 8:[address] [facility] RBC 3.70(L) 3.80 - 4.80 M/[facility] LAB HEMETOLOGY METHOD 09/17/2024 8:[address] [facility] Hemoglobin 10.0(L) 11.5 - 16.0 g/dL LAB HEMETOLOGY METHOD 09/17/2024 8:[address] [facility] Hematocrit 32.4(L) 35.0 - 47.0 % LAB HEMETOLOGY METHOD 09/17/2024 8:22 AM EST [facility] MCV 86.6 79.0 - 98.0 FL LAB HEMETOLOGY METHOD 09/17/2024 8:22 AM EST [facility] MCH 26.7(L) 27.0 - 32.0 pcg LAB HEMETOLOGY METHOD 09/17/2024 8:[address] [facility] MCHC 30.9(L) 32.0 - 37.0 g/dL LAB HEMETOLOGY METHOD 09/17/2024 8:22 AM EST [facility] RDW 16.4(H) 11.0 - 15.0 % LAB HEMETOLOGY METHOD 09/17/2024 8:[address] [facility] Platelets 481(H) 130 - 400 K/mcL LAB HEMETOLOGY METHOD 09/17/2024 8:[address] [facility] MPV 10.1 7.0 - 11.0 FL LAB HEMETOLOGY METHOD 09/17/2024 8:22 AM EST [facility] NRBC 0.0 <1.0 % LAB HEMETOLOGY METHOD 09/17/2024 8:[address] [facility] NRBC Absolute 0.00 <0.10 K/mcL LAB HEMETOLOGY METHOD 09/17/2024 8:[address] [facility] Blood Venous blood specimen / Unknown Venipuncture / Unknown 09/17/2024 5:38 AM EST 09/17/2024 8:06 AM EST us Mark Anthony Simpson MD LAB BLOOD ORDERABLES Final Result [facility] [address] [place] [address], documented in this encounter Visit Diagnoses Diagnosis Essential (primary) hypertension Unspecified essential hypertension Type 2 diabetes mellitus without complications (CMS/HCC V24, CMS/HCC V28) documented in this encounter Care Teams Charge Master Coordinator Relationship Specialty Start Date End Date Betsy Rodriguez MD [address] [place] [address] PCP - General Internal Medicine 09/30/24 documented as of this encounter
--- OUTSIDE RECORDS SUMMARY | 2025-03-28 05:58 | XMS_ITS | Encounter Summary ---
Author Organization [facility] Address [address] [place] [address] Care Team Providers Care Photoengraving Proofer Name Role Phone Immanuel Rodriguez MD Primary Care Provider +1 -[phone] Shona Funk PA-C Unavailable Unavailab Narinder Damon DPMark Unavailable Unavailable Encounter Details Date Type Department Care Team Description 11/11/2019 Spray Machine Tender Report Medical Records [address] [place] [address] Social History Tobacco Use Types Packs/Day Years [...] week 08/26/2023 How often do you attend [facility] or mormonism services? More than 4 times per year 08/26/2023 Do you belong to any clubs o r organizations such as anabaptism groups, unions, fraternal or athletic groups, or [...] place to sleep or slept in a senior care (including now)? No 08/26/2023 Sex Assigned at Date Recorded Not on file Job Start Date Occupation Industry Not on file Not on file Not on file documented as of this encounter Plan of Treatment Not on file documented as of this encounter Visit Diagnoses Not on filedocumented in this encounter Care Teams Photoengraving Proofer Relationship Specialty Start Date End Date Immanuel Rodriguez MD [address] [place] [address] PCP - General Internal Medicine 07/29/14 Shona Funk PA-C [address] [place] [address] Cardiology 08/30/21 04/14/22 Narinder Yung DPM [address] [place] [address] Podiatry 08/20/23 08/25/23 documented as of this encounter
--- OUTSIDE RECORDS SUMMARY | 2025-03-28 05:58 | XMS_ITS | Encounter Summary ---
Author Organization [facility] Address [address] [place] [address] Care Team Providers Care Acoustical Carpenter Name Role Phone Immanuel Rodriguez MD Primary Care Provider +1 -[phone] Shona Funk PA-C Unavailable Unavailab Narinder Damon DPMark Unavailable Unavailable Encounter Details Date Type Department Care Team Description 12/26/2017 Platform Stapler Report Medical Records [address] [place] [address] Mo Rhodes MD Social History Tobacco Use [...] week 08/26/2023 How often do you attend [facility] or synagogue services? More than 4 times per year 08/26/2023 Do you belong to any clubs o r organizations such as gnosticist groups, unions, fraternal or athletic groups, or [...] on filedocumented in this encounter Care Teams Acoustical Carpenter Relationship Specialty Start Date End Date Immanuel Rodriguez MD [address] [place] [address] PCP - General Internal Medicine 07/29/14 Shona Funk PA-C [address] [place] [address] Cardiology 08/30/21 04/14/22 Narinder Yung DPM [address] [place] [address] Podiatry 08/20/23 08/25/23 documented as of this encounter
--- OUTSIDE RECORDS SUMMARY | 2025-03-28 05:58 | XMS_ITS | Encounter Summary ---
Author Organization [facility] Address [address] [place] [address] Care Team Providers Care Tree Driller Name Role Phone Immanuel Rodriguez MD Primary Care Provider +1 -[phone] Shona Funk PA-C Unavailable Unavailab Narinder Damon DPMark Unavailable Unavailable Encounter Details Date Type Department Care Team Description 03/19/2018 [facility] Medical Records [address] [place] [address] Abstract, Provider Social History Tobacco Use Types [...] 08/26/2023 How often do you attend [facility] or mandaeism services? More than 4 times per year [...] on filedocumented in this encounter Care Teams Tree Driller Relationship Specialty Start Date End Date Immanuel Rodriguez MD [address] [place] [address] PCP - General Internal Medicine 07/29/14 Shona Funk PA-C [address] [place] [address] Cardiology 08/30/21 04/14/22 Narinder Yung DPM [address] [place] [address] Podiatry 08/20/23 08/25/23 documented as of this encounter
--- OUTSIDE RECORDS SUMMARY | 2025-03-28 05:58 | XMS_ITS | Encounter Summary ---
Author Organization [facility] Address [address] [place] [address] Care Team Providers Care Neurologist Name Role Phone Immanuel Rodriguez MD Primary Care Provider +1 -[phone] Shona Funk PA-C Unavailable Unavailab Narinder Damon DPMark Unavailable Unavailable Encounter Details Date Type Department Care Team Description 03/29/2022 Paper Feeder Report Medical Records [address] [place] [address] Social History Tobacco Use Types Packs/Day Years [...] 08/26/2023 How often do you attend [facility] or congregational services? More than 4 times per year 08/26/2023 Do you belong to any clubs o r organizations such as congregational groups, unions, fraternal or athletic groups, or [...] on filedocumented in this encounter Care Teams Neurologist Relationship Specialty Start Date End Date Immanuel Rodriguez MD [address] [place] [address] PCP - General Internal Medicine 07/29/14 Shona Funk PA-C [address] [place] [address] Cardiology 08/30/21 04/14/22 Narinder Yung DPM [address] [place] [address] Podiatry 08/20/23 08/25/23 documented as of this encounter
--- OUTSIDE RECORDS SUMMARY | 2025-03-28 05:58 | XMS_ITS | Encounter Summary ---
Author Organization [facility] Address [address] [place] [address] Care Team Providers Care Manager Risk Management Name Role Phone Immanuel Rodriguez MD Primary Care Provider +1 -[phone] Encounter Details Date Type Department Care Team Description 05/27/2024 Home Health Certification Medical Records [address] [place] [address] Social History Tobacco Use Types Packs/Day Years [...] How often do you attend [facility] or bahai services? More than 4 times per year 08/26/2023 Do you belong to any clubs o r organizations such as baptist groups, unions, fraternal or athletic groups, or [...] place to sleep or slept in a fdc (including now)? No 08/26/2023 Sex Assigned at Date Recorded Not on file Job Start Date Occupation Industry Not on file Not on file Not on file documented as of this encounter Plan of Treatment Not on file documented as of this encounter Visit Diagnoses Not on filedocumented in this encounter Care Teams Manager Risk Management Relationship Specialty Start Date End Date Immanuel Rodriguez MD [facility] [place] [address] PCP - General Internal Medicine 07/29/14 documented as of this encounter
--- OUTSIDE RECORDS SUMMARY | 2025-03-28 05:58 | XMS_ITS | Encounter Summary ---
Author Organization [facility] Address [address] [place] [address] Care Team Providers Care Card Services Specialist Name Role Phone Immanuel Rodriguez MD Primary Care Provider +1 -[phone] Shona Funk PA-C Unavailable Unavailab Narinder Damon DPMark Unavailable Unavailable Encounter Details Date Type Department Care Team Description 10/17/2017 Timber Selector Report Medical Records [address] [place] [address] Mo Rhodes MD Social History Tobacco Use [...] How often do you attend [facility] or jehovah's witness services? More than 4 times per year 08/26/2023 Do you belong to any clubs o r organizations such as religion groups, unions, fraternal or athletic groups, or [...] place to sleep or slept in a intermediate (including now)? No 08/26/2023 Sex Assigned at Date Recorded Not on file Job Start Date Occupation Industry Not on file Not on file Not on file documented as of this encounter Plan of Treatment Not on file documented as of this encounter Visit Diagnoses Not on filedocumented in this encounter Care Teams Card Services Specialist Relationship Specialty Start Date End Date Immanuel Rodriguez MD [address] [place] [address] PCP - General Internal Medicine 07/29/14 Shona Funk PA-C [address] [place] [address] Cardiology 08/30/21 04/14/22 Narinder Yung DPM [address] [place] [address] Podiatry 08/20/23 08/25/23 documented as of this encounter
--- OUTSIDE RECORDS SUMMARY | 2025-03-28 05:58 | XMS_ITS | Encounter Summary ---
Author Organization [facility] Address [address] [place] [address] Care Team Providers Care Edge Stitcher Name Role Phone Immanuel Rodriguez MD Primary Care Provider +1 -[phone] Narinder Yung DPM Unavailable Unavailable Reason for Visit * Reason Onset Date Comments APPOINTMENT 07/16/2022 Encounter Details Date Type Department Care Team Description 07/16/2022 Telephone [facility] Medical [facility] [address] [facility] [address] [place] [phone] Narinder Yung DPM APPOINTMENT Social History Tobacco Use Types Packs/Day Years [...] do you attend [facility] or anabaptist services? More than 4 times per year 08/26/2023 Do you belong to any clubs o r organizations such as methodist groups, unions, fraternal or athletic groups, or [...] place to sleep or slept in a alf (including now)? No 08/26/2023 Sex Assigned at Date Recorded Not on file Job Start Date Occupation Industry Not on file Not on file Not on file COVID-19 Exposure Response Date Recorded In the last 10 days, have yo u been in contact with someone who was confirmed or suspected to have Coronavirus/COVID-19? No / Unsure 07/10/2022 11:03 AM EDT documented as of this encounter Plan of Treatment Not on file documented as of this encounter Visit Diagnoses Not on filedocumented in this encounter Care Teams Edge Stitcher Relationship Specialty Start Date End Date Immanuel Rodriguez MD [address] [place] [address] PCP - General Internal Medicine 07/29/14 Narinder Yung DPM [address] [place] [address] Podiatry 08/20/23 08/25/23 documented as of this encounter
--- OUTSIDE RECORDS SUMMARY | 2025-03-28 05:58 | XMS_ITS | Encounter Summary ---
Author Organization [facility] Address [address] [place] [address] Care Team Providers Care Work Manager Name Role Phone Immanuel Rodriguez MD Primary Care Provider +1 -[phone] Shona Funk PA-C Unavailable Unavailab Narinder Damon DPMark Unavailable Unavailable Encounter Details Date Type Department Care Team Description 02/07/2022 Hospital Medical Records [address] [place] [address] Social History Tobacco Use Types Packs/Day Years [...] week 08/26/2023 How often do you attend [facility] or zoroastrian services? More than 4 times per year [...] place to sleep or slept in a care home (including now)? No 08/26/2023 Sex Assigned [...] on filedocumented in this encounter Care Teams Work Manager Relationship Specialty Start Date End Date Immanuel Rodriguez MD [address] [place] [address] PCP - General Internal Medicine 07/29/14 Shona Funk PA-C [address] [place], [place] Cardiology 08/30/21 04/14/22 Narinder Yung DPM [address] [place] [address] Podiatry 08/20/23 08/25/23 documented as of this encounter
--- OUTSIDE RECORDS SUMMARY | 2025-03-28 05:58 | XMS_ITS | Encounter Summary ---
Author Organization [facility] Address [address] [place] [address] Care Team Providers Care Trial Paralegal Name Role Phone Immanuel Rodriguez MD Primary Care Provider +1 -[phone] Encounter Details Date Type Department Care Team Description 06/29/2024 Transfer Records Medical Records [address] [place] [address] Social History Tobacco Use Types Packs/Day Years [...] often do you attend [facility] or muslim services? More than 4 times per year [...] on filedocumented in this encounter Care Teams Trial Paralegal Relationship Specialty Start Date End Date Immanuel Rodriguez MD [facility] [place] [address] PCP - General Internal Medicine 07/29/14 documented as of this encounter
--- OUTSIDE RECORDS SUMMARY | 2025-03-28 05:58 | XMS_ITS | Encounter Summary ---
Author Organization [facility] Address [address] [place] [address] Care Team Providers Care Vp Product Management Name Role Phone Immanuel Rodriguez MD Primary Care Provider +1 -[phone] Shona Funk PA-C Unavailable Unavailab Narinder Damon DPMark Unavailable Unavailable Encounter Details Date Type Department Care Team Description 12/31/2017 Hospital Medical Records [address] [place] [address] Mo Rhodes MD Social History Tobacco Use [...] week 08/26/2023 How often do you attend [facility] or amish services? More than 4 times per year 08/26/2023 Do you belong to any clubs o r organizations such as restoration groups, unions, fraternal or athletic groups, or [...] place to sleep or slept in a chcf (including now)? No 08/26/2023 Sex Assigned at Date Recorded Not on file Job Start Date Occupation Industry Not on file Not on file Not on file documented as of this encounter Plan of Treatment Not on file documented as of this encounter Visit Diagnoses Not on filedocumented in this encounter Care Teams Vp Product Management Relationship Specialty Start Date End Date Immanuel Rodriguez MD [address] [place] [address] PCP - General Internal Medicine 07/29/14 Shona Funk PA-C [address] [place] [address] Cardiology 08/30/21 04/14/22 Narinder Yung DPM [address] [place] [address] Podiatry 08/20/23 08/25/23 documented as of this encounter
--- OUTSIDE RECORDS SUMMARY | 2025-03-28 05:58 | XMS_ITS | Encounter Summary ---
Author Organization [facility] Address [address] [place] [address] Care Team Providers Care Watch Adjuster Name Role Phone Immanuel Rodriguez MD Primary Care Provider +1 -[phone] Shona Funk PA-C Unavailable Unavailab Narinder Damon DPMark Unavailable Unavailable Encounter Details Date Type Department Care Team Description 06/18/2018 Commercial Estimator Report Medical Records [address] [place] [address] Savanah Garcia Social History Tobacco Use Types Packs/Day Years [...] How often do you attend chur or gnosticism services? More than 4 times per year [...] on filedocumented in this encounter Care Teams Watch Adjuster Relationship Specialty Start Date End Date Immanuel Rodriguez MD [address] [place] [address] PCP - General Internal Medicine 07/29/14 Shona Funk PA-C [address] [place] [address] Cardiology 08/30/21 04/14/22 Narinder Yung DPM [address] [place] [address] Podiatry 08/20/23 08/25/23 documented as of this encounter
--- OUTSIDE RECORDS SUMMARY | 2025-03-28 05:58 | XMS_ITS | Encounter Summary ---
Author Organization [facility] Address [address] [place] [address] Care Team Providers Care Internet Merchant Name Role Phone Immanuel Rodriguez MD Primary Care Provider +1 -[phone] Shona Funk PA-C Unavailable Unavailab Narinder Damon DPMark Unavailable Unavailable Encounter Details Date Type Department Care Team Description 10/24/2021 Hospital Medical Records [address] [place] [address] Social History Tobacco Use Types Packs/Day Years [...] often do you attend [facility] or hinduism services? More than 4 times per year 08/26/2023 Do you belong to any clubs o r organizations such as sabianism groups, unions, fraternal or athletic groups, or [...] Name Priority Date/Time Associated Diagnosis Comments OUTSIDE LAB Routine 10/29/2021 OUTSIDE EKG Routine 10/23/2021 OUTSIDE PLAIN FILM Routine 10/23/2021 documented in this encounter Results * OUTSIDE LAB (10/29/2021) Provider Abstract LAB * OUTSIDE PLAIN FILM (10/23/2021) Provider Abstract RADIOLOGY * OUTSIDE EKG (10/23/2021) Provider Abstract CARDIOLOGY documented in this encounter Visit Diagnoses Not on filedocumented in this encounter Care Teams Internet Merchant Relationship Specialty Start Date End Date Immanuel Rodriguez MD [address] [place] [address] PCP - General Internal Medicine 07/29/14 Shona Funk PA-C [address] [place] [address] Cardiology 08/30/21 04/14/22 Narinder Yung DPM [address] [place] [address] Podiatry 08/20/23 08/25/23 documented as of this encounter
--- OUTSIDE RECORDS SUMMARY | 2025-03-28 05:58 | XMS_ITS | Encounter Summary ---
Author Organization [facility] Address [address] [place] [address] Care Team Providers Care Polymerization Oven Tender Name Role Phone Immanuel Rodriguez MD Primary Care Provider +1 -[phone] Narinder Yung DPMark Unavailable Unavailable Encounter Details Date Type Department Care Team Description 04/03/2023 Home Health Certification Medical Records [address] [place] [address] Social History Tobacco Use Types Packs/Day Years [...] week 08/26/2023 How often do you attend [facility] or scientologist services? More than 4 times per year 08/26/2023 Do you belong to any clubs o r organizations such as adventism groups, unions, fraternal or athletic groups, or [...] on filedocumented in this encounter Care Teams Polymerization Oven Tender Relationship Specialty Start Date End Date Immanuel Rodriguez MD [address] [place] [address] PCP - General Internal Medicine 07/29/14 Narinder Yung DPM [address] [place], [place] Podiatry 08/20/23 08/25/23 documented as of this encounter
--- OUTSIDE RECORDS SUMMARY | 2025-03-28 05:58 | XMS_ITS | Encounter Summary ---
Author Organization [facility] Address [address] [place] [address] Care Team Providers Care Customer Service Teller Name Role Phone Immanuel Rodriguez MD Primary Care Provider +1 -[phone] Encounter Details Date Type Department Care Team Description 01/28/2024 Home Health Certification Medical Records [address] [place] [address] Social History Tobacco Use Types Packs/Day Years [...] How often do you attend chur or roman catholic services? More than 4 times per year 08/26/2023 Do you belong to any clubs o r organizations such as spiritism groups, unions, fraternal or athletic groups, or [...] on filedocumented in this encounter Care Teams Customer Service Teller Relationship Specialty Start Date End Date Immanuel Rodriguez MD [facility] [place] [address] PCP - General Internal Medicine 07/29/14 documented as of this encounter
--- OUTSIDE RECORDS SUMMARY | 2025-03-28 05:58 | XMS_ITS | Encounter Summary ---
Author Organization [facility] Address [address] [place] [address] Care Team Providers Care Construction Grip Name Role Phone Immanuel Rodriguez MD Primary Care Provider +1 -[phone] Shona Funk PA-C Unavailable Unavailab Narinder Damon DPMark Unavailable Unavailable Encounter Details Date Type Department Care Team Description 08/11/2018 Sane Nurse Report Medical Records [address] [place] [address] Mo Rhodes MD Social History Tobacco Use [...] week 08/26/2023 How often do you attend [facility] or mandaeism services? More than 4 times per year 08/26/2023 Do you belong to any clubs o r organizations such as adventist groups, unions, fraternal or athletic groups, or [...] on filedocumented in this encounter Care Teams Construction Grip Relationship Specialty Start Date End Date Immanuel Rodriguez MD [address] [place] [address] PCP - General Internal Medicine 07/29/14 Shona Funk PA-C [address] [place] [address] Cardiology 08/30/21 04/14/22 Narinder Yung DPM [address] [place] [address] Podiatry 08/20/23 08/25/23 documented as of this encounter
--- OUTSIDE RECORDS SUMMARY | 2025-03-28 05:58 | XMS_ITS | Encounter Summary ---
Author Organization [facility] Address [address] [place] [address] Care Team Providers Care Enrollment Nurse Name Role Phone Immanuel Rodriguez MD Primary Care Provider +1 [phone] Shona Funk PA-C Unavailable Unavailab Narinder Damon DPMark Unavailable Unavailable Encounter Details Date Type Department Care Team Description 01/17/2021 Hospital Medical Records [address] [place] [address] Joe Espinosa MD Social History Tobacco Use Types Packs/Day [...] How often do you attend chur or sikhism services? More than 4 times per year [...] on filedocumented in this encounter Care Teams Enrollment Nurse Relationship Specialty Start Date End Date Immanuel Rodriguez MD [address] [place] [address] PCP - General Internal Medicine 07/29/14 Shona Funk PA-C [address] [place] [address] Cardiology 08/30/21 04/14/22 Narinder Yung DPM [address] [place] [address] Podiatry 08/20/23 08/25/23 documented as of this encounter
--- OUTSIDE RECORDS SUMMARY | 2025-03-28 05:58 | XMS_ITS | Encounter Summary ---
Author Organization [facility] Address [address] [place] [address] Care Team Providers Care Clock And Watch Hands Mounter Name Role Phone Immanuel Rodriguez MD Primary Care Provider [phone] [phone] Reason for Visit * Reason Onset Date Comments Provider Call Back 12/18/2023 Encounter Details Date Type Department Care Team Description 12/18/2023 Telephone Adult [facility] [address] [place] [address] Immanuel Rodriguez MD [address] [place] [address] Provider Call Back Social History Tobacco Use [...] week 08/26/2023 How often do you attend [facility] or confucianist services? More than 4 times per year 08/26/2023 Do you belong to any clubs o r organizations such as mandaeism groups, unions, fraternal or athletic groups, or [...] place to sleep or slept in a usp (including now)? No 08/26/2023 Sex Assigned at Date Recorded Not on file Job Start Date Occupation Industry Not on file Not on file Not on file documented as of this encounter Miscellaneous Notes * Telephone Encounter - Christi Heard M.A. - 12/18/2023 2:[address] Malin, patient prefers to speak with you regarding her recent lab work. I did advise her that you were out of the office until tomorrow. Spoke with Altagracia, she will fax notes along with referral to [facility] pain management department. She also gave me the direct number for patient to call [phone] if she does not hear from them over the next few days. I notified the patient of this. Just FYI. * Telephone Encounter - John Herculesrosy - 12/18/2023 11:53 AM EST Caller requesting call back from provider: Is the caller the patient? YES If caller is not the patient, what is the callers name? N/A Callers relationship to patient? N/A If person calling is not the patient themselves, is there a verbal release in FYI or permanent comments for this person: NO Reason for call back: Pt has a few questions in regards to some labs that were drawn recently on 12/08/23, as well as questions on her pain management referral. Caller offered to speak with the nurse for assistance: YES Response: Patient offered to speak with nurse for assistance and patient agreed. Message forwarded to nurse. documented in this encounter Plan of Treatment Not on file documented as of this encounter Visit Diagnoses Not on filedocumented in this encounter Care Teams Clock And Watch Hands Mounter Relationship Specialty Start Date End Date Immanuel Rodriguez MD [address] [place] [address] PCP - General Internal Medicine 07/29/14 documented as of this encounter
--- OUTSIDE RECORDS SUMMARY | 2025-03-28 05:58 | XMS_ITS | Encounter Summary ---
Author Organization [facility] Address [address] [place] [address] Care Team Providers Care Sand Blaster Name Role Phone Immanuel Rodriguez MD Primary Care Provider +1 [phone] Shona Funk PA-C Unavailable Unavailab Narinder Damon DPMark Unavailable Unavailable Encounter Details Date Type Department Care Team Description 04/08/2019 Lanolin Plant Operator Report Medical Records [address] [place] [address] Savanah Garcia Social History Tobacco Use Types [...] How often do you attend chur or rastafari services? More than 4 times per year [...] to sleep or slept in a senior living (including now)? No 08/26/2023 Sex Assigned at Date Recorded Not on file Job Start Date Occupation Industry Not on file Not on file Not on file documented as of this encounter Plan of Treatment Not on file documented as of this encounter Visit Diagnoses Not on filedocumented in this encounter Care Teams Sand Blaster Relationship Specialty Start Date End Date Immanuel Rodriguez MD [address] [place] [address] PCP - General Internal Medicine 07/29/14 Shona Funk PA-C [address] [place] [address] Cardiology 08/30/21 04/14/22 Narinder Yung DPM [address] [place] [address] Podiatry 08/20/23 08/25/23 documented as of this encounter
--- OUTSIDE RECORDS SUMMARY | 2025-03-28 05:58 | XMS_ITS | Clinical Summary ---
Author Organization [facility] Address [address] [place] [phone] Phone Care Team Providers Care Reproduction Machine Loader Name Role Phone Betsy Rodriguez MD Primary [...] Noted Date Diagnosed Date Left below-knee amputee ([facility] V24, [facility] V2 8) 09/30/2024 Toe ulcer due to DM ([facility] V24, [facility] V28) 0 02/28/2022 Overview (12/06/2024): Left second toe. Status postdebridement. To be following with Dr. Shana ANN Hypertensive retinopathy of both eyes 01/04/2022 Overview (12/06/2024): Dr. 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 V24, [facility] V28) 01/04/2022 Overview (12/06/2024): Both eyes, recommended laser NPDR (nonproliferative diabe tic retinopathy) ([facility] V24, [facility] V28) 01/04/2022 Overview (12/06/2024): Moderate, OU, no NVE or NVD seen. Nuclear sclerosis 01/04/2022 Overview (12/06/2024): Cataract surgery recommnded, patient declined. Type 2 diabetes mellitus wit h eye manifestations ([facility] V24, [facility] V28) 01/04/2022 Overview (12/06/2024): Diabetic retinopathy, macula edema. Dr. Hunter SVT (supraventricular tachycardia) ([facility] V24) 05/28/2021 Amputation, below knee, unil ateral, traumatic ([facility] V24, [facility] V28) 12/10/2018 Peripheral vascular disease ([facility] V24) 2018 Overview (12/06/2024): Status post left great toe amputation, status post superficial femoral artery to dorsalis pedis bypass left SFA endarterectomy status post right BKA Diabetes mellitus ([facility] V24, 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 V24) 01/26/2018 Overview (12/06/2024): Dry gangrene Hypertriglyceridemia 12/13/2013 Overview (12/06/2024): IMO update Diabetes mellitus, type 2 ([facility] V24, [facility] V28) 08/02/2013 Hypertension 08/02/2013 Major depression 08/02/2013 Immunizations Name Administration Dates Next Due Pneumococcal polysaccharide 23 valent (Pneumovax 23) 2yo and older 12/13/2013 Td, Unspecified 04/10/2004 Tdap Tetanus diptheria acell ular pertussis (Boostrix; Adacel) 7yo and older 12/13/2013 Surgical History Surgery Date Site/Laterality Comments TONSILLECTOMY 11/10/1959 PROCEDURE: HISTORICAL TONSILLECTOMY BYPASS GRAFT 03/16/2018 PROCEDURE: OH AMPUTATION TOE METATARSOPHALANGEAL JOINT; COMMENT: Left first [...] of grea t toe of left foot ([facility] V24) 01/26/2018 DX:Traumatic amputation of g reat toe of left foot ([facility]); COMMENT: Dry gangrene Cholelithiasis DX:Cholelithiasi s Gangrene ([facility] V24, [facility] V28) DX:Gangrene ([facility]); COMMENT: Left great toe Legally blind DX:Legally blind Neuropathy DX:Neuropathy Osteoarthritis DX:Osteoarthriti s PAD (peripheral artery disea se) ([facility] V24) DX:PAD (peripheral artery di sease) ([facility]) Poor dentition DX:Poor dentitio n PVD (peripheral vascular dis ease) ([facility] V24) DX:PVD (peripheral vascular disease) ([facility]) S/P angioplasty DX:S/P angioplas ty S/P BKA (below knee amputati on) ([facility] V24, [facility] V28) DX:S/P BKA (below knee ampu tation) ([facility]) Diabetes mellitus type 2, co ntrolled, with complications ([facility] V24, [facility] V28) DX:Diabetes mellitus type 2, controlled, with complications ([facility]) Esophageal reflux DX:Esophageal reflux Hyperlipidemia DX:Hyperlipidemi a Essential hypertension DX:Essent ial hypertension Toe ulcer due to DM ([facility] V24, [facility] V28) 02/28/2022 DX:Toe ulcer due to DM ([facility]) ; COMMENT: Left second toe. Status postdebridement. [...] lems Father diabetes Maternal Grandmother (Age 59) [facility] Mother (Age 77) stroke age 75 [...] care for your loved ones. For example, children counselor or elderly care for an older adult? [...] mmol/L LAB CHEMISTRY METHOD 10/06/2024 6:53 AM [facility] Potassium 4.3 3.5 - 5.5 mmol/L LAB CHEMISTRY METHOD 10/06/2024 6:53 AM [facility] Chloride 101 96 - 110 mmol/L LAB CHEMISTRY METHOD 10/06/2024 6:53 AM [facility] CO2 26 21 - 32 mmol/L LAB CHEMISTRY METHOD 10/06/2024 6:53 AM [facility] Anion Gap 9 3 - 11 LAB CHEMISTRY METHOD 10/06/2024 6:53 AM [facility] Glucose 86 70 - 100 mg/dL LAB CHEMISTRY METHOD 10/06/2024 6:53 AM [facility] BUN 16 5 - 25 mg/dL LAB CHEMISTRY METHOD 10/06/2024 6:53 AM [facility] Creatinine 0.48(L) 0.50 - 1.10 mg/dL LAB CHEMISTRY METHOD 10/06/2024 6:53 AM [facility] eGFR 101 >=60 mL/min/1. 73m2 LAB CHEMISTRY METHOD 10/06/2024 6:53 AM [facility] Comment:Calculation based on the??Chronic Kidney Disease Epidemiology Collaboration (CKD-EPI) equation refit??without adjustment for race. BUN/Creatinine Ratio 33.3 LAB CHEMISTRY METHOD 10/06/2024 6:53 AM [facility] Calcium 9.6 8.5 - 10.5 mg/dL LAB CHEMISTRY METHOD 10/06/2024 6:53 AM [facility] AST (SGOT) 16 10 - 42 unit/L LAB CHEMISTRY METHOD 10/06/2024 6:53 AM [facility] ALT (SGPT) 12 10 - 60 unit/L LAB CHEMISTRY METHOD 10/06/2024 6:53 AM [facility] Alkaline Phosphatase 72 42 - 121 unit/L LAB CHEMISTRY METHOD 10/06/2024 6:53 AM [facility] Total Protein 5.6(L) 6.0 - 8.0 g/dL LAB CHEMISTRY METHOD 10/06/2024 6:53 AM [facility] Albumin 2.2(L) 3.2 - 5.0 g/dL LAB CHEMISTRY METHOD 10/06/2024 6:53 AM [facility] Total Bilirubin 0.3 0.0 - 1.4 mg/dL LAB CHEMISTRY METHOD 10/06/2024 6:53 AM [facility] Blood Venous blood specimen / Unknown Venipuncture / Unknown 10/06/2024 5:55 AM EST 10/06/2024 6:16 AM EST us Amalia M Rin PA LAB BLOOD ORDERABLES Final R esult [facility] [address] [place] [address], [place] [phone] * Urine Albumin Creatinine Ratio (12/08/2023) Urine Albumin Creatinine Ratio abstracted Historical Provider HEALTH MAINTENANCE Final Result * Hepatitis C Screening (05/11/2014) Hepatitis C Screening abstracted Historical Provider HEALTH MAINTENANCE Final Result from Last 3 Months or Most Recently Relevant to Health Maintenance Insurance MEDICAID - [place] MEDICARE [facility] Advance Directives Documents on File Type Date Recorded Patient Shoe Shanker Expl anation Advance Directives and Living Will [...] currently active code status orders. Care Teams Reproduction Machine Loader Relationship Specialty Start Date End Date Betsy Rodriguez MD [address] [place] [id number] PCP - General Internal Medicine 09/30/24
--- OUTSIDE RECORDS SUMMARY | 2025-03-28 05:58 | XMS_ITS | Encounter Summary ---
Author Organization [facility] Address [address] [place] [address] Care Team Providers Care Silver Holloware Assembler Name Role Phone Immanuel Rodriguez MD Primary Care Provider +1 -[phone] Narinder Yung DPMark Unavailable Unavailable Encounter Details Date Type Department Care Team Description 06/08/2022 Hospital Medical Records [address] [place] [address] Social History Tobacco Use Types Packs/Day Years [...] How often do you attend [facility] or alevism services? More than 4 times per year 08/26/2023 Do you belong to any clubs o r organizations such as buddhism groups, unions, fraternal or athletic groups, or [...] on filedocumented in this encounter Care Teams Silver Holloware Assembler Relationship Specialty Start Date End Date Immanuel Rodriguez MD [address] [place] [address] PCP - General Internal Medicine 07/29/14 Narinder Yung DPM [address] [place] [address] Podiatry 08/20/23 08/25/23 documented as of this encounter
--- OUTSIDE RECORDS SUMMARY | 2025-03-28 05:58 | XMS_ITS | Encounter Summary ---
Author Organization [facility] Address [address] [place] [address] Care Team Providers Care Reinforcer Name Role Phone Immanuel Rodriguez MD Primary Care Provider +1 -[phone] Encounter Details Date Type Department Care Team Description 03/28/2024 Home Health Certification Medical Records [address] [place] [address] Social History Tobacco Use Types Packs/Day Years [...] How often do you attend chur or christianity services? More than 4 times per year 08/26/2023 Do you belong to any clubs o r organizations such as jainism groups, unions, fraternal or athletic groups, or [...] place to sleep or slept in a [place] [facility] (including now)? No 08/26/2023 Sex Assigned at Date Recorded Not on file Job Start Date Occupation Industry Not on file Not on file Not on file documented as of this encounter Plan of Treatment Not on file documented as of this encounter Visit Diagnoses Not on filedocumented in this encounter Care Teams Reinforcer Relationship Specialty Start Date End Date Immanuel Rodriguez MD [facility] [place] [address] PCP - General Internal Medicine 07/29/14 documented as of this encounter
--- OUTSIDE RECORDS SUMMARY | 2025-03-28 05:58 | XMS_ITS | Encounter Summary ---
Author Organization [facility] Address [address] [place] [address] Care Team Providers Care Forest Fire Fighter Name Role Phone Immanuel Rodriguez MD Primary Care Provider +1 -[phone] Shona Funk PA-C Unavailable Unavailab Narinder Damon DPMark Unavailable Unavailable Encounter Details Date Type Department Care Team Description 01/30/2018 Fingernail Sculpturer Report Medical Records [address] [place] [address] Savanah Garcia Social History Tobacco Use Types [...] How often do you attend chur or yazidism services? More than 4 times per year 08/26/2023 Do you belong to any clubs o r organizations such as confucianist groups, unions, fraternal or athletic groups, or [...] on filedocumented in this encounter Care Teams Forest Fire Fighter Relationship Specialty Start Date End Date Immanuel Rodriguez MD [address] [place] [address] PCP - General Internal Medicine 07/29/14 hSona Funk PA-C [address] [place] [address] Cardiology 08/30/21 04/14/22 Narinder Yung DPM [address] [place] [address] Podiatry 08/20/23 08/25/23 documented as of this encounter
--- OUTSIDE RECORDS SUMMARY | 2025-03-28 05:58 | XMS_ITS | Encounter Summary ---
Author Organization [facility] Address [address] [place] [address] Care Team Providers Care Product Director Name Role Phone Immanuel Rodriguez MD Primary Care Provider +1 [phone] Narinder Yung DPMark Unavailable Unavailable Encounter Details Date Type Department Care Team Description 06/18/2022 Hospital Medical Records [address] [place] [address] Ritchie Rizo MD [address] [place] [address] Social History Tobacco Use Types Packs/Day Years [...] often do you attend [facility] or religion services? More than 4 times per year 08/26/2023 Do you belong to any clubs o r organizations such as pentecostalism groups, unions, fraternal or athletic groups, or [...] filedocumented in this encounter Care Teams Product Director Relationship Specialty Start Date End Date Immanuel Rodriguez MD [address] [place] [address] PCP - General Internal Medicine 07/29/14 Narinder Yung DPM [address] [place] [address] Podiatry 08/20/23 08/25/23 documented as of this encounter
--- OUTSIDE RECORDS SUMMARY | 2025-03-28 05:58 | XMS_ITS | Encounter Summary ---
Author Organization [facility] Address [address] [place] [address] Care Team Providers Care Data Control Assistant Name Role Phone Immanuel Rodriguez MD Primary Care Provider +1 -[phone] Reason for Visit * Reason Onset Date Comments Faxed Order 03/02/2024 Faxed Order [id number] Encounter Details Date Type Department Care Team Description 03/02/2024 Telephone Adult Medicine - [place] [address] [place] [address] Immanuel Rodriguez MD [address] [place] [address] Faxed Order (Faxed Order [id number]) Social History Tobacco Use Types Packs/Day Years [...] week 08/26/2023 How often do you attend [facility] or islam services? More than 4 times per year [...] place to sleep or slept in a long-term (including now)? No 08/26/2023 Sex Assigned at Date Recorded Not on file Job Start Date Occupation Industry Not on file Not on file Not on file documented as of this encounter Miscellaneous Notes * Telephone Encounter - Christi Heard M.A. - 03/02/2024 2:12 PM EDT Faxed, filed and confirmed. * Telephone Encounter - Marlena Gibson - 03/02/2024 1:55 PM EDT . PLEASE CLOSE ( SIGN ENCOUNTER) MESSAGE WHEN ORDER HAS BEEN FAXED Faxed order [id number] received from [facility], requesting signature from provider. Please sign andfax back to [phone]. Faxed order in PCP's folder ( orange) at check out. documented in this encounter Plan of Treatment Not on file documented as of this encounter Visit Diagnoses Not on filedocumented in this encounter Care Teams Data Control Assistant Relationship Specialty Start Date End Date Immanuel Rodriguez MD [address] [place] [address] PCP - General Internal Medicine 07/29/14 documented as of this encounter
[2025-03-28 05:59] LABS: MANUAL DIFF FLAG NO
--- OUTSIDE RECORDS SUMMARY | 2025-03-28 05:59 | XMS_ITS | Encounter Summary ---
Author Organization [facility] Address [address] [place] [address] Care Team Providers Care Sewer And Cutter Finger Buff Material Name Role Phone Immanuel Rodriguez MD Primary Care Provider +1 -[phone] Shona Funk PA-C Unavailable Unavailab Narinder Damon DPMark Unavailable Unavailable Encounter Details Date Type Department Care Team Description 01/26/2019 SCAN Medical Records [address] [place] [address] Mo Rhodes MD Social History Tobacco Use [...] 08/26/2023 How often do you attend [facility] or denominational services? More than 4 times per year 08/26/2023 Do you belong to any clubs o r organizations such as shinto groups, unions, fraternal or athletic groups, or [...] Name Priority Date/Time Associated Diagnosis Comments OUTSIDE VASCULAR STUDY Routine 01/26/2019 documented in this encounter Results * OUTSIDE VASCULAR STUDY (01/26/2019) Provider Abstract CARDIOLOGY documented in this encounter Visit Diagnoses Not on filedocumented in this encounter Care Teams Sewer And Cutter Finger Buff Material Relationship Specialty Start Date End Date Immanuel Rodriguez MD [address] [place] [address] PCP - General Internal Medicine 07/29/14 Shona Funk PA-C [address] [place] [address] Cardiology 08/30/21 04/14/22 Narinder Yung DPM [address] [place] [address] Podiatry 08/20/23 08/25/23 documented as of this encounter
--- OUTSIDE RECORDS SUMMARY | 2025-03-28 05:59 | XMS_ITS | Encounter Summary ---
Author Organization [facility] Address [address] [place] [address] Care Team Providers Care Reinspector Name Role Phone Immanuel Rodriguez MD Primary Care Provider +1 -[phone] Narinder Yung DPMark Unavailable Unavailable Encounter Details Date Type Department Care Team Description 04/23/2022 Orders Only Adult Medicine - [place] [address] [place] [address] Immanuel Rodriguez MD [address] [place] [address] Type 2 diabetes mellitus with diabetic neuropathy, unspecified whether intermediate accountant insulin use (HCC) (Primary Dx); Essential (primary) hypertension; Type 2 diabetes mellitus with retinopathy without macular edema, unspecified laterality, unspecified retinopathy severity, unspecified whether fdc insulin use (HCC); Atherosclerosis of [place] coronary artery without angina pectoris, unspecified whether [place] or transplanted heart; Legal blindness, as defined in [place]; intermediate accountant (current) use of aspirin; detention (current) use of oral hypoglycemic drugs Social History Tobacco Use Types Packs/Day Years [...] How often do you attend chur or muslim services? More than 4 times per year 08/26/2023 Do you belong to any clubs o r organizations such as zoroastrianism groups, unions, frafarmaciamarket or athletic groups, or school groups? Yes [...] suspected to have Coronavirus/COVID-19? No / Unsure 04/15/2022 1:14 PM EDT documented as of this encounter Plan of Treatment Not on file documented as of this encounter Visit Diagnoses Diagnosis Type 2 diabetes mellitus with diabetic neuropathy, unspecified whether intermediate accountant insulin use (HCC)- Primary Essential (primary) hypertension Unspecified essential hypertension Type 2 diabetes mellitus with retinopathy without macular edema, unspecified laterality, unspecified retinopathy severity, unspecified whether intermediate accountant insulin use (HCC) Atherosclerosis of [place] coronary artery without angina pectoris, unspecified whether [place] or transplanted heart Legal blindness, as defined in [place] detention (current) use of aspirin intermediate accountant (current) use of oral hypoglycemic drugs documented in this encounter Care Teams Reinspector Relationship Specialty Start Date End Date Immanuel Rodriguez MD [address] [place] [address] PCP - General Internal Medicine 07/29/14 Narinder Yung, REE [address] [place] [address] Podiatry 08/20/23 08/25/23 documented as of this encounter
--- OUTSIDE RECORDS SUMMARY | 2025-03-28 05:59 | XMS_ITS | Encounter Summary ---
Author Organization [facility] Address [address] [place] [address] Care Team Providers Care Senior Commissary Agent Name Role Phone Immanuel Rodriguez MD Primary Care Provider +1 [phone] Narinder Yung DPMark Unavailable Unavailable Encounter Details Date Type Department Care Team Description 04/18/2022 Hospital Medical Records [address] [place] [address] Ritchie Rizo MD [address] [place] [address] Social History Tobacco Use Types Packs/Day Years [...] week 08/26/2023 How often do you attend [facility] or protestant services? More than 4 times per year [...] on filedocumented in this encounter Care Teams Senior Commissary Agent Relationship Specialty Start Date End Date Immanuel Rodriguez MD [address] [place], [place] [id number] PCP - General Internal Medicine 07/29/14 Narinder Yung DPM [address] [place] [address] Podiatry 08/20/23 08/25/23 documented as of this encounter
--- OUTSIDE RECORDS SUMMARY | 2025-03-28 05:59 | XMS_ITS | Encounter Summary ---
Author Organization [facility] Address [address] [place] [address] Care Team Providers Care Bookmobile Clerk Name Role Phone Immanuel Rodriguez MD Primary Care Provider +1 -[phone] Narinder Yung DPMark Unavailable Unavailable Reason for Visit * Reason Onset Date Comments Faxed Order 08/19/2023 Faxed Order # [id number] Encounter Details Date Type Department Care Team Description 08/19/2023 Telephone Adult Medicine - [place] [address] [place] [address] Immanuel Rodriguez MD [address] [place] [address] Faxed Order (Faxed Order # [id number]) Social History Tobacco Use Types Packs/Day Years [...] often do you attend chur ch or amish services? More than 4 times per year 08/26/2023 Do you belong to any clubs o r organizations such as roman catholic groups, unions, fraternal or athletic groups, or [...] suspected to have Coronavirus/COVID-19? No / Unsure 08/22/2023 8:18 AM EDT documented as of this encounter Miscellaneous Notes * Telephone Encounter - Christi Heard M.A. - 08/19/2023 3:52 PM EDT Faxed, confirmed and filed in POD C, Dr. Mercedes's files. * Telephone Encounter - Marlena Gibson - 08/19/2023 1:29 PM EDT . Faxed order #[id number] received from [facility], requesting signature from provider. Please sign and fax back to [phone]. Faxed order in PCP's folder ( [place]) at check out. - documented in this encounter Plan of Treatment Not on file documented as of this encounter Visit Diagnoses Not on filedocumented in this encounter Care Teams Bookmobile Clerk Relationship Specialty Start Date End Date Immanuel Rodriguez, [address] [place] [address] PCP - General Internal Medicine 07/29/14 Narinder Yung DPM [address] [place] [address] Podiatry 08/20/23 08/25/23 documented as of this encounter
--- OUTSIDE RECORDS SUMMARY | 2025-03-28 05:59 | XMS_ITS | Encounter Summary ---
Author Organization [facility] Address [address] [place] [address] Care Team Providers Care Tree Cutter Name Role Phone Immanuel Rodriguez MD Primary Care Provider +1 -[phone] Narinder Yung DPMark Unavailable Unavailable Encounter Details Date Type Department Care Team Description 05/28/2022 Home Health Certification Medical Records [address] [place] [address] Social History Tobacco Use Types Packs/Day Years [...] you attend [facility] or rastafari services? More than 4 times per year 08/26/2023 Do you belong to any clubs o r organizations such as restorationism groups, unions, fraternal or athletic groups, or [...] filedocumented in this encounter Care Teams Tree Cutter Relationship Specialty Start Date End Date Immanuel Rodriguez MD [address] [place] [address] PCP - General Internal Medicine 07/29/14 Narinder Yung DPM [address] [place] [address] Podiatry 08/20/23 08/25/23 documented as of this encounter
--- OUTSIDE RECORDS SUMMARY | 2025-03-28 05:59 | XMS_ITS | Encounter Summary ---
Author Organization [facility] Address [address] [place] [address] Care Team Providers Care Electric Melt Operator Name Role Phone Immanuel Rodriguez MD Primary Care Provider +1 [phone] Shona Funk PA-C Unavailable Unavailab Narinder Damon DPMark Unavailable Unavailable Encounter Details Date Type Department Care Team Description 12/04/2018 Night Triage Doc Medical Records [address] [place] [address] Abstract, Provider Social History Tobacco Use Types [...] do you attend [facility] or oriental orthodox services? More than 4 times per year [...] on filedocumented in this encounter Care Teams Electric Melt Operator Relationship Specialty Start Date End Date Immanuel Rodriguez MD [address] [place] [address] PCP - General Internal Medicine 07/29/14 Shona Funk PA-C [address] [place] [address] Cardiology 08/30/21 04/14/22 Narinder Yung DPM [address] [place] [address] Podiatry 08/20/23 08/25/23 documented as of this encounter
--- OUTSIDE RECORDS SUMMARY | 2025-03-28 05:59 | XMS_ITS | Encounter Summary ---
Author Organization [facility] Address [address] [place] [address] Care Team Providers Care Rib Puller Name Role Phone Immanuel Rodriguez MD Primary Care Provider +1 -[phone] Shona Funk PA-C Unavailable Unavailab Narinder Damon DPMark Unavailable Unavailable Encounter Details Date Type Department Care Team Description 11/27/2018 [facility] Medical Records [address] [place] [address] Abstract, Provider Social History Tobacco Use Types [...] week 08/26/2023 How often do you attend [facility] or roman catholic services? More than 4 [...] filedocumented in this encounter Care Teams Rib Puller Relationship Specialty Start Date End Date Immanuel Rodriguez MD [address] [place] [address] PCP - General Internal Medicine 07/29/14 Shona Funk PA-C [address] [place] [address] Cardiology 08/30/21 04/14/22 Narinder Yung DPM [address] [place] [address] Podiatry 08/20/23 08/25/23 documented as of this encounter
--- OUTSIDE RECORDS SUMMARY | 2025-03-28 05:59 | XMS_ITS | Encounter Summary ---
Author Organization [facility] Address [address] [place] [address] Care Team Providers Care Dye Weigher Name Role Phone Immanuel Rodriguez MD Primary Care Provider +1 -[phone] Narinder Yung DPMark Unavailable Unavailable Encounter Details Date Type Department Care Team Description 04/18/2022 [facility] Medical Records [address] [place] [address] Abstract, Provider Social History Tobacco Use Types [...] week 08/26/2023 How often do you attend [facility] or rastafari services? More than 4 times [...] on filedocumented in this encounter Care Teams Dye Weigher Relationship Specialty Start Date End Date Immanuel Rodriguez MD [address] [place] [address] PCP - General Internal Medicine 07/29/14 Narinder Yung DPM [address] [place] [address] Podiatry 08/20/23 08/25/23 documented as of this encounter
--- OUTSIDE RECORDS SUMMARY | 2025-03-28 05:59 | XMS_ITS | Encounter Summary ---
Author Organization [facility] Address [address] [place] [address] Care Team Providers Care Air Box Tester Name Role Phone Immanuel Rodriguez MD Primary Care Provider +1 -[phone] Narinder Yung DPMark Unavailable Unavailable Encounter Details Date Type Department Care Team Description 04/15/2022 Continuous Pickling Line Pickler Helper Report Medical Records [address] [place] [address] Social History Tobacco Use Types Packs/Day Years [...] week 08/26/2023 How often do you attend [facility] or bahai services? More than 4 times [...] on filedocumented in this encounter Care Teams Air Box Tester Relationship Specialty Start Date End Date Immanuel Rodriguez MD [address] [place] [address] PCP - General Internal Medicine 07/29/14 Narinder Yung DPM [address] [place] [address] Podiatry 08/20/23 08/25/23 documented as of this encounter
--- OUTSIDE RECORDS SUMMARY | 2025-03-28 05:59 | XMS_ITS | Encounter Summary ---
Author Organization [facility] Address [address] [place] [address] Care Team Providers Care Tannery Gummer Name Role Phone Immanuel Rodriguez MD Primary Care Provider +1 -[phone] Narinder Yung DPM Unavailable Unavailable Encounter Details Date Type Department Care Team Description 04/18/2022 Hospital Medical Records [address] [place] [address] Narinder Yung DPM Social History Tobacco Use Types Packs/Day Years [...] often do you attend [facility] or jain services? More than 4 times per year 08/26/2023 Do you belong to any clubs o r organizations such as confucianism groups, unions, fraternal or athletic groups, or [...] on filedocumented in this encounter Care Teams Tannery Gummer Relationship Specialty Start Date End Date Immanuel Rodriguez MD [address] [place] [address] PCP - General Internal Medicine 07/29/14 Narinder Yung DPM [address] [place], [place] Podiatry 08/20/23 08/25/23 documented as of this encounter
--- OUTSIDE RECORDS SUMMARY | 2025-03-28 05:59 | XMS_ITS | Encounter Summary ---
Author Organization [facility] Address [address] [place] [address] Care Team Providers Care Search Marketing Specialist Name Role Phone Immaneul Rodriguez MD Primary Care Provider +1 -[phone] Shona Funk PA-C Unavailable Unavailab Narinder Damon DPMark Unavailable Unavailable Encounter Details Date Type Department Care Team Description 09/17/2018 Manager Steel Report Medical Records [address] [place] [address] Abstract, Provider Social History Tobacco Use Types [...] you attend [facility] or latter day services? More than 4 times per year 08/26/2023 Do you belong to any clubs o r organizations such as moravian groups, unions, fraternal or athletic groups, or [...] on filedocumented in this encounter Care Teams Search Marketing Specialist Relationship Specialty Start Date End Date Immanuel Rodriguez MD [address] [place] [address] PCP - General Internal Medicine 07/29/14 Shona Funk PA-C [address] [place] [address] Cardiology 08/30/21 04/14/22 Narinder Yung DPM [address] [place] [address] Podiatry 08/20/23 08/25/23 documented as of this encounter
[2025-03-28 06:20] LABS: Basophils Absolute Auto 0.1 X10*3/uL (0.0-0.2); Basophils Percent Auto 0.8 % (0-2); Eosinophils Absolute Auto 0.2 X10*3/uL (0.0-0.4); Eosinophils Percent Auto 2.3 % (0-4); Hematocrit 29.9 % (37.0-47.0); Hemoglobin 9.4 g/dl (12.0-16.0); Imm Gran Abs Auto 0.02 X10*3/uL (0.00-0.03); Imm Gran Pct Auto 0.2 % (0.0-0.4); Lymphocytes Absolute Auto 3.1 X10*3/uL (1.2-4.9); Lymphocytes Percent Auto 37.6 % (20-40); Mean Corpuscular HGB Conc 31.4 g/dl (31.0-35.0); Mean Corpuscular Hemoglobin 27.4 pg (27.0-33.0); Mean Corpuscular Volume 87.2 fL (80.0-98.0); Mean Platelet Volume 10.6 fL (9.4-12.3); Monocytes Percent Auto 11.6 % (2-11); Neutrophils Absolute Auto 3.9 x10*3/uL (2.0-8.3); Neutrophils Percent Auto 47.5 % (45-73); Platelet Count 414 X10*3/uL (160-400); Red Blood Count 3.43 X10*6/uL (4.20-5.50); Red Cell Distribution Width 16.1 % (11.0-16.0); White Blood Count 8.3 X10*3/uL (4.8-10.8)
[2025-03-28 06:24] LABS: Estimated Average Glucose 117 mg/dL; Hemoglobin A1C 94.6281 umol/L; Hemoglobin A1c % 5.7 % (<6.0); Total Hemoglobin (HGBA1C) 2466.1376 umol/L
[2025-03-28 06:36] LABS: Alanine Aminotransferase 6 U/L (0-31); Albumin Level 3.2 g/dL (3.5-5.0); Anion Gap 12 (12-20); Aspartate Amino Transferase 18 U/L (5-31); Bilirubin Total 0.2 mg/dL (0.0-1.0); Blood Urea Nitrogen 19 mg/dL (9-16); Calcium 9.8 mg/dL (8.4-10.2); Carbon Dioxide 25 mmol/L (22-29); Chloride 107 mmol/L (96-108); Estimated Glomerular Filt Rate > 60; Glucose Random 133 mg/dL (60-115); Iron 18 mcg/dL (30-160); Percent Iron Saturation 7 % (15-50); Potassium 3.8 mmol/L (3.3-5.1); Sodium 140 mmol/L (135-145); Total Iron Binding Capacity 246 mcg/dL (228-428); Total Protein 6.5 g/dL (6.5-8.0); Unsaturated Iron Binding 228 ug/dL
[2025-03-28 06:48] LABS: Alkaline Phosphatase 73 U/L (39-117)
== END 2025-03-28 05:56 | disposition home or self-care (01) ==
LOC: HO.MMNH2L 05:55
PROVIDERS: Visit Provider Student in an Organized Health Care Education/Training Program
DX: E11.9 Type 2 diabetes mellitus without complications (principal)
CPT/HCPCS: 36415; 80053; 83036; 83540; 85025

== ENCOUNTER 2025-05-16 06:26 | Outpatient (REF) | payer MEDICARE, MEDICAID, SELFPAY ==
--- OUTSIDE RECORDS SUMMARY | 2025-05-16 06:29 | XMS_ITS | Clinical Summary ---
Author Organization [facility] Address [address] [place] [phone] Phone Care Team Providers Care Qa Architect Name Role Phone Betsy Rodriguez MD Primary [...] Noted Date Diagnosed Date Left below-knee amputee ([facility] V24, [facility] V2 8) 09/30/2024 Toe ulcer due to DM ([facility] V24, [facility] V28) 0 02/28/2022 Overview (12/06/2024): Left second toe. Status postdebridement. To be following with Dr. Shana ANN Hypertensive retinopathy of both eyes 01/04/2022 Overview (12/06/2024): Dr. 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 Nuclear sclerosis 01/04/2022 Overview (12/06/2024): Cataract surgery recommnded, patient declined. Type 2 diabetes mellitus wit h eye manifestations ([facility] V24, [facility] V28) 01/04/2022 Overview (12/06/2024): Diabetic retinopathy, macula edema. Dr. 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 ([facility] V24) 03/16/2018 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 ([facility] V24) 01/26/2018 Overview (12/06/2024): Dry gangrene Hypertriglyceridemia 12/13/2013 Overview (12/06/2024): IMO update Diabetes mellitus, type 2 ([facility] V24, [facility] V28) 08/02/2013 Hypertension 08/02/2013 Major [...] of grea t toe of left foot ([facility] V24) 01/26/2018 DX:Traumatic amputation of g reat toe of left foot ([facility]); COMMENT: Dry gangrene Cholelithiasis DX:Cholelithiasi s Gangrene ([facility] V24, [facility] V28) DX:Gangrene ([facility]); COMMENT: Left great toe Legally blind DX:Legally blind Neuropathy DX:Neuropathy Osteoarthritis DX:Osteoarthriti s PAD (peripheral artery disea se) ([facility] V24) DX:PAD (peripheral artery di sease) ([facility]) Poor dentition DX:Poor dentitio n PVD (peripheral vascular dis ease) ([facility] V24) DX:PVD (peripheral vascular disease) ([facility]) S/P angioplasty DX:S/P angioplas ty S/P BKA (below knee amputati on) ([facility] V24, [facility] V28) DX:S/P BKA (below knee ampu tation) ([facility]) Diabetes mellitus type 2, co ntrolled, with complications ([facility] V24, [facility] V28) DX:Diabetes mellitus type 2, controlled, with complications ([facility]) Esophageal reflux DX:Esophageal reflux Hyperlipidemia DX:Hyperlipidemi a Essential hypertension DX:Essent ial hypertension Toe ulcer due to DM ([facility] V24, [facility] V28) 02/28/2022 DX:Toe ulcer due to DM ([facility]) ; COMMENT: Left second toe. Status postdebridement. [...] lems Father diabetes Maternal Grandmother (Age 59) [facility] Mother (Age 77) stroke [...] care for your loved ones. For example, child psychology teacher or elderly care for an older adult? [...] 67 10/08/2024 7:55 AM EST Temperature 36.3 C (97.3 F) 10/08/2024 7:55 AM EST Respiratory Rate 15 10/08/2024 1:21 AM EST [...] Albumin-Creatinine Ratio (uACR) 12/08/2024 12/08/2023 Influenza Vaccine (#1) 2025 08/14/2018 Diabetes: Annual GFR (Glomerular Filtration [...] mmol/L LAB CHEMISTRY METHOD 10/06/2024 6:53 AM [facility] Potassium 4.3 3.5 - 5.5 mmol/L LAB CHEMISTRY METHOD 10/06/2024 6:53 AM [facility] Chloride 101 96 - 110 mmol/L LAB CHEMISTRY METHOD 10/06/2024 6:53 AM [facility] CO2 26 21 - 32 mmol/L LAB CHEMISTRY METHOD 10/06/2024 6:53 AM [facility] Anion Gap 9 3 - 11 LAB CHEMISTRY METHOD 10/06/2024 6:53 AM [facility] Glucose 86 70 - 100 mg/dL LAB CHEMISTRY METHOD 10/06/2024 6:53 AM [facility] BUN 16 5 - 25 mg/dL LAB CHEMISTRY METHOD 10/06/2024 6:53 AM [facility] Creatinine 0.48(L) 0.50 - 1.10 mg/dL LAB CHEMISTRY METHOD 10/06/2024 6:53 AM [facility] eGFR 101 >=60 mL/min/1. 73m2 LAB CHEMISTRY METHOD 10/06/2024 6:53 AM [facility] Comment:Calculation based on the Chronic Kidney Disease Epidemiology Collaboration (CKD-EPI) equation refit without adjustment for race. BUN/Creatinine Ratio 33.3 LAB CHEMISTRY METHOD 10/06/2024 6:53 AM [facility] Calcium 9.6 8.5 - 10.5 mg/dL LAB CHEMISTRY METHOD 10/06/2024 6:53 AM [facility] AST (SGOT) 16 10 - 42 unit/L LAB CHEMISTRY METHOD 10/06/2024 6:53 AM [facility] ALT (SGPT) 12 10 - 60 unit/L LAB CHEMISTRY METHOD 10/06/2024 6:53 AM [facility] Alkaline Phosphatase 72 42 - 121 unit/L LAB CHEMISTRY METHOD 10/06/2024 6:53 AM [facility] Total Protein 5.6(L) 6.0 - 8.0 g/dL LAB CHEMISTRY METHOD 10/06/2024 6:53 AM [facility] Albumin 2.2(L) 3.2 - 5.0 g/dL LAB CHEMISTRY METHOD 10/06/2024 6:53 AM [facility] Total Bilirubin 0.3 0.0 - 1.4 mg/dL LAB CHEMISTRY METHOD 10/06/2024 6:53 AM [facility] Blood Venous blood specimen / Unknown Venipuncture / Unknown 10/06/2024 5:55 AM EST 10/06/2024 6:16 AM EST us Amalia DIAS LAB BLOOD ORDERABLES Final R esult [facility] [address] [place] [address], * Urine Albumin Creatinine Ratio (12/08/2023) Urine Albumin Creatinine Ratio abstracted us Historical Provider MD HEALTH MAINTENANCE Final Result * Hepatitis C Screening (05/11/2014) Hepatitis C Screening abstracted us Historical Provider MD HEALTH MAINTENANCE Final Result from Last 3 Months or Most Recently Relevant to Health Maintenance Insurance MEDICA[place] - [place] MEDICARE [facility] Advance Directives Documents on File Type Date Recorded Patient Regional Transportation Manager Expl anation Advance Directives and Living Will [...] currently active code status orders. Care Teams Qa Architect Relationship Specialty Start Date End Date Betsy Rodriguez MD [address] [place] [id number] PCP - General Internal Medicine 09/30/24
--- OUTSIDE RECORDS SUMMARY | 2025-05-16 06:29 | XMS_ITS | Data Portability ---
Author Organization [facility], Main Office Address [address] [facility] [[email or web address]] [address] [place] [address] Care Team Providers Care Dairy [employer] Laboratory Assistant Name Role Phone [facility] [place] OTHER Assessment Encounter Date Assessment Date [...] By Organization Details Last Modified Time 11/20/2018 [id number] d/c home with meds, services on 11/21/18. f.u. with pcp in 2 weeks. f/u with vascular surg. as sched. [email or web address] Not available 11/20/2018 11:42:09 Reason for Referral None Reported. Problems Name Problem SNOMED Code Status Onset Date Resolution Date Notes Provider Name and Address Organization Details Recorded Time Diabetes mellitus 03275239 Active 2017 Betsy diallo, [facility] 8 21:29:28 Essential hypertensio n 37060936 Active 2017 Betsy diallo, [facility] 8 21:29:40 Peripheral gangrene 153543464 Completed 201708/02/2018 Betsy diallo, [facility] 8 21:30:46 Infection of foot 030338962 Active 2017 Betsy diallo, [facility] 8 21:30:05 Peripheral vascular disease 314899204 Active 2017 Betsy diallo, [facility] 8 21:30:17 Neuropathy 568073487 Active 2017 Betsy diallo, [facility] 8 21:32:44 Osteoarthri tis 355043606 Active 2017 Bashir Lui MD [address] [facility], [address], [place], [address], [facility] 8 13:17:23 Mixed hyperlipide gena 947704683 Active 2017 Bashir Lui MD [address] [facility], [address], [place], [address], [facility] 8 13:23:00 Gangrene of foot 285485054 Active 2017 Bashir Lui MD [address] [facility], [address], [place], [address], [facility] 8 13:40:39 Amputated below knee 631488957 Active 2017 Shannon Dean yoel, [facility] 8 10:07:01 Peripheral vascular disease 231500817 Active 2017 Shannon diallo, [facility] 8 10:07:01 Diabetes mellitus 07484759 Active 2017 Shannon diallo, [facility] 8 10:07:01 Essential hypertensio n 26477432 [facility] blindness 75782618 [facility] 10:07:01 Osteoarthri tis 601149083 Active 2017 Shannon diallo, [facility] 8 10:07:01 Neuropathy due to diabetes mellitus 928913328 Active 2017 Shannon Dean [facility], [facility] 8 10:07:01 Mixed hyperlipide gena 341555547 Active 2017 Shannon diallo, [facility] 8 10:07:01 Problem Notes None recorded. Medical Equipment None Reported. Allergies No known drug allergies Medications Not known to be on any medication Vitals Date Recorded Heart rate Systolic And Diastolic Provider Name and Address Organization Details Last Updated DateTime 11/19/2018 74 /min 108/55 mm[Hg] Priscila Lerner [facility] 11/19/2018 16:56:52 Date Recorded Heart rate Respiratory rate Systolic And Diastolic Provider Name and Address Organization Details Last Updated DateTime 10/30/2018 67 /min 15 /min 157/65 mm[Hg] Rianna Lopez [address] [place] [address], [address], [place], [address], [facility] 10/30/2018 08:20:50 Social History Question Answer Notes LastModified by Organizat ion Details LastModified Time Tobacco Smoking Status Never Smoker Not Available [facility] 09/05/2020 03:13:20 Do You Have An Advance Directive? Yes DNR DNI [id number] Information not available 09/05/2020 How Much Tobacco Do You Chew? None [id number] Information not available 09/05/2020 Do You Have A Medical Power Of Restaurant Culinary Manager? No [id number] Information not available 09/05/2020 What Was The Date Of Your Most Recent Tobacco Screening? 11/09/2018 [id number] Information not available 09/05/2020 Sex: Unknown Functional Status Question Answer Note LastModified by Organization D etails LastModified Time What is your level of alcohol consumption? None [id number] Information not available 09/05/2020 Mental Status None [...] Time influenza, unspecified formulation 08/14/2018 completed Nohemy diallo [place] [facility] 08/31/2018 13:05:57 Past Encounters Encounter ID Performer Location Encounter Start Date Encounter Closed Date Diagnosis/Indication Diagnosis SNOMED-CT Code Diagnosis ICD10 Code Diagnosis Note [id number] Betsy Bynum NP, [address] [place] [address] [facility] [place] [address] 08/02/2018 21:34:50 08/13/2018 10:48:53 Infection of foot 522490658 L08.9 wound care: left toe amputation with lodosrb and dry daily right heel ulcer silvadene and dry sterile dressing bid pt/ot f/u dr calderon 08/11/18 doxy bid for 14 days pain control with oxycodone pt alexandra nash switching surgeons, she will let us know her choices and we can help make appts for her provide supportive care Peripheral vascular disease 446595164 I73.9 continue plavix, aspirin, atorvastat in extensive hx of pvd Diabetes mellitus 823760 09 E11.69 continue metformin monitor fs qid if fs consistent ly >200 consider tighter control based on chronic wounds Essential hypertension 52458881 I10 metoprolol 50mg bid monitor hr/bp norvasc 5mg qday [id number] Bashir Lui MD [place] [address] [place] [address] 08/04/2018 13:10:17 08/13/2018 11:04:55 Peripheral vascular disease 236595258 I73.89 see HPIunderwe nt left lower extremity angiogram per summary however patient states this was right sideandrig ht heel ulcerunder went debridemen tsurgery discussed BKArefused by patient at this timemonito r sitecontin ue wound careplavix 75 mg qddoxycycl ine 100 mg bidadd probiotic8 1 mg qdPatient very interested in avoiding amputation - discusses this in depth Diabetes mellitus 587120 09 E11.9 metformin 500 mg qam, 250 mg qpmmonitor blood glucose Essential hypertension 48754159 I10 norvasc 5 mg qdmetoprol ol 50 mg bidmonitor bp Mixed hyperlipidemia 267 471505 E78.2 lipitor 40 mg qdcontinue Gangrene of foot 2263880 05 I96 dry gangrene right first toesee above [id number] Bashir Lui MD [address] [place] [address] 08/19/2018 16:08:43 08/20/2018 09:35:13 Peripheral vascular disease 527896064 I73.89 see HPIright heel ulcersurge ry again discussed BKAstill refused by patient at this timemonito r sitecontin ue wound careplavix 75 mg qddoxycycl ine 100 mg bid with stop date to be determined by surgerypat ient is waiting on second surgical opinion next weekwill then decide Gangrene of foot 2433340 05 I96 worsening conditiond ry gangrene right first toe [id number] aBshir Lui MD [address] [place] [address] 10/05/2018 09:03:08 10/19/2018 11:57:02 Amputated below knee 962303014 Z89.511 see HPIfailed conservati ve treatment for foot infection/ ulcer rightnow s/p BKAfollow ortho recsPT OT eval and treatmonit or for pain control and constipati on Peripheral vascular disease 305717323 I73.89 peripheral artery disease at baselinepl avix 75 mg qdASA 81 mg qdcurrentl y on lovenox for DVT prophylaxi s Diabetes mellitus 296496 09 E11.9 metformin 500 mg qam 250 mg q pmmonitor blood glucose Neuropathy due to diabetes mellitus 304513842 E11.42 gabapentin 200 mg qhsmonitor for pain control Essential hypertension 57927148 I10 metoprolol 50 mg bidnorvasc 5 mg qdmonitor bp Mixed hyperlipidemia 267 754161 E78.2 lipitor 40 mg qdcontinue [id number] JASPAL LORD [place] [address] [place] [address] 10/13/2018 11:06:44 10/19/2018 13:12:19 Amputated below knee 103518270 Z89.511 see HPIfailed conservati ve treatment for [...] elevation due to edema. Peripheral vascular disease 582471809 I73.89 peripheral artery disease at baselinepl avix 75 mg qdASA 81 mg qdcurrentl y on lovenox for DVT prophylaxi s Diabetes mellitus 549677 09 E11.9 metformin 500 mg qam 250 mg q pmmonitor blood glucose Neuropathy due to diabetes mellitus 090870418 E11.42 gabapentin 200 mg qhsmonitor for pain control [id number] [place] [address] 10/22/2018 11:31:09 11/05/2018 16:04:19 Amputated below knee 964739334 Z89.511 see HPIfailed conservati ve treatment for foot infection/ ulcer rightnow s/p BKA Peripheral vascular disease 581280796 I73.89 peripheral artery disease at baselinepl avix 75 mg qdASA 81 mg qdcurrentl y on lovenox for DVT prophylaxi s- will DC next week before discharge Diabetes mellitus 301599 09 E11.9 metformin 500 mg qam 250 mg q pmmonitor blood glucose Neuropathy due to diabetes mellitus 819006913 E11.42 gabapentin 200 mg qhsmonitor for pain control [id number] Rianna Lopez [address] [place], [place] [address] 10/30/2018 07:58:26 11/16/2018 20:30:37 Amputated below knee 902364340 Z89.511 s/p BKAsurgica l site secured with steri strips. d/c betadine and dry dsg.Contin ue with quote clerk only at all times, remove for skin checks & skin care.follo w ortho recs,PT OT eval and treatmonit or for pain control and constipati on Peripheral vascular disease 654326122 I73.89 peripheral artery disease at baselinepl avix 75 mg qdASA 81 mg qdprophyla xis lovenox d/c'd on 10/27. Monitor Diabetes mellitus 695455 09 E11.9 metformin 500 mg qam 250 mg q pmmonitor blood glucose Neuropathy due to diabetes mellitus 497697926 E11.42 gabapentin 200 mg qhsmonitor for pain control Essential hypertension 87108671 I10 metoprolol 50 mg bidnorvasc 5 mg qdmonitor bp Mixed hyperlipidemia 267 984113 E78.2 lipitor 40 mg qdcontinue [id number] Bashir Lui MD [address] [place], [place] [address] 11/09/2018 13:57:25 11/12/2018 12:21:21 Peripheral vascular disease 668339017 I73.89 peripheral artery disease at baselinepl avix 75 mg qdASA 81 mg qdrestart lovenox 40 mg sc qdrefer back to surgery for eval Amputated below knee 299 717614 Z89.511 s/p BKAfollow ortho recs,PT OT eval and treatmonit or for pain control and constipati oncontinue s to improve [id number] LARISSA TORO [address] [place] [address] 11/19/2018 14:38:25 11/27/2018 09:47:55 Peripheral vascular disease 576319447 I73.89 peripheral artery disease at baselinepl avix 75 mg qdASA 81 mg qdrestart lovenox 40 mg sc qdrefer back to surgery for eval Amputated below knee 299 859932 Z89.511 s/p BKAfollow ortho recs,PT OT eval and treatmonit or for pain control and constipati oncontinue s to improve Open wound of toe 591247 002 S91.105D this is an unstageabl e area d/t darkened spot. Pt to f/u with vascualr as sched. continue current tx/care. [id number] PRISCILA LERNER, [address] [place] [address] 11/20/2018 10:21:06 11/27/2018 10:02:18 Peripheral vascular disease 640444125 I73.89 peripheral artery disease at baselinepl avix 75 mg qdASA 81 mg qdlovenox 40 mg sc qd- pt will go home with this until stopped by vascular.f /u with vasc. surg as sched. Amputated below knee 299 329425 Z89.511 s/p BKAfollow ortho recs,monit or for pain control and constipati oncontinue s to improve Diabetes mellitus 034621 09 E11.9 stable, continue metformin 500 mg qam 250 mg q pmmonitor blood glucose Neuropathy due to diabetes mellitus 461386762 E11.42 stable, continue gabapentin 200 mg qhs Essential hypertension 76593986 I10 stable, continueme toprolol 50 mg bidnorvasc 5 mg qdmonitor bp Mixed hyperlipidemia 267 763434 E78.2 lipitor 40 mg qd [id number] Betsy Bynum NP, [address] [place] [address] [place] [address] 11/21/2018 19:41:01 12/21/2018 11:06:36 Peripheral vascular disease 596133880 I73.89 d/c home with current medication s peripheral artery disease at baselinepl avix 75 mg qdASA 81 mg qdlovenox 40 mg sc qd- pt will go home with this until stopped by vascular.f /u with vasc. surg as sched. oxycodone prn pain management Amputated below knee 299 590061 Z89.511 s/p BKAfollow ortho recs,monit or for pain control and constipati onpt d/c home with oxycodone script/tyl enol Diabetes mellitus 607520 09 E11.9 continue metformin 500 mg qam 250 mg q pmmonitor blood glucose Neuropathy due to diabetes mellitus 723023651 E11.42 stable, continue gabapentin 200 mg qhs Essential hypertension 48758946 I10 stable, continueme toprolol 50 mg bidnorvasc 5 mg qdmonitor bp Mixed hyperlipidemia 267 407836 E78.2 lipitor 40 mg qd Health Concerns Section Related Observation LastModified by Organization Detai ls LastModified Time None Recorded Concern Status LastModified by Organization Details LastModified Time None Recorded Advance Directives Directive Y: DNR DNI Payers Insurance Date Sequence Insurance Name Policy Number Policy Forte Covered Member ID Forte Member ID Guarantor Name 11/19/2018 1 MEDICARE [place]: [employer] Nevin Ma [id number] Nevin Ma 12/21/2018 2 A[employer] (MEDICARE SUPPLEMENT) Nevin Ma [id number] Nevin Ma 10/06/2018 2 [employer] (MEDICARE SUPPLEMENT) Nevin Ma [id number] Nevin Ma Notes Date Note Type Note Provider Name and Address Organization Details Recorded Time 018 text/h tml Patient is an 80 yo female admit from hospital after presenting with right foot ulcer required BKA after failing conservative treatment. Patient has prior toe amputation left side PMH significant forlegal blindnessdmOAneuropathyhtnperipheral artery disease Rianna Jessica [address] [facility], [address], [place], [address] , [facility] 11/12/2018 20:09:56 018 text/h tml Patient is a 63 yo female seen for acute rounding now with discolored area distal aspect first toe left foot. Initially admit from hospital after presenting with right foot ulcer required BKA after failing conservative treatment. Patient has prior toe amputation left side. Maintained on ASA, Plavix. Bashir Lui MD [address] [facility], [address], [place], [address] , [facility] 11/09/2018 14:03:49 019 text/h tml Patient is a 63 yo female with PVD/R BKA seen for acute rounding for f/u ofdiscolored area distal aspect second toe left foot (great toe is surgically absent). Patient has prior toe amputation left side. Maintained on ASA, Plavix. Priscila diallo [facility] 11/19/2018 17:02:10 019 text/h tml Patient is [...] d/c home. She will go home on lo Priscila diallo [facility] 11/20/2018 11:42:29 019 text/h tm Patient is [...] considered for prosthesis in future. Betsy diallo [facility] 11/21/2018 20:51:25 OBGyn Episode No OBEpisode recorded.
[2025-05-16 06:30] LABS: MANUAL DIFF FLAG NO
[2025-05-16 06:54] LABS: Hematocrit 26.6 % (37.0-47.0); Hemoglobin 8.2 g/dl (12.0-16.0); Imm Gran Abs Auto 0.03 X10*3/uL (0.00-0.03); Imm Gran Pct Auto 0.4 % (0.0-0.4); Lymphocytes Absolute Auto 2.8 X10*3/uL (1.2-4.9); Mean Corpuscular HGB Conc 30.8 g/dl (31.0-35.0); Mean Corpuscular Hemoglobin 25.5 pg (27.0-33.0); Mean Corpuscular Volume 82.9 fL (80.0-98.0); NRBC Abs Auto 0.000 X10*3/uL (0.0-0.012); NRBC Pct Auto 0.0 /100WBC (0.0-0.2); Platelet Count 361 X10*3/uL (160-400); Red Blood Count 3.21 X10*6/uL (4.20-5.50); White Blood Count 7.9 X10*3/uL (4.8-10.8)
[2025-05-16 07:09] LABS: Alanine Aminotransferase 7 U/L (0-31); Albumin Level 3.2 g/dL (3.5-5.0); Alkaline Phosphatase 81 U/L (39-117); Anion Gap 13 (12-20); Aspartate Amino Transferase 18 U/L (5-31); Blood Urea Nitrogen 26 mg/dL (9-16); Calcium 9.4 mg/dL (8.4-10.2); Carbon Dioxide 24 mmol/L (22-29); Chloride 107 mmol/L (96-108); Estimated Glomerular Filt Rate > 60; Potassium 4.0 mmol/L (3.3-5.1); Sodium 140 mmol/L (135-145); Total Protein 6.1 g/dL (6.5-8.0)
[2025-05-16 07:24] LABS: Thyroid Stimulating Hormone 1.84 uIU/mL (0.32-4.0)
[2025-05-16 07:34] LABS: Hemoglobin A1C 88.2673 umol/L; Total Hemoglobin (HGBA1C) 2231.8109 umol/L
== END 2025-05-16 06:27 | disposition home or self-care (01) ==
LOC: HO.MMNH2L 06:26
PROVIDERS: Visit Provider Nurse Practitioner Family
DX: I13.0 Hypertensive heart and chronic kidney disease with heart failure and stage 1 through stage 4 chronic kidney disease, or unspecified chronic kidney disease (principal); E11.22 Type 2 diabetes mellitus with diabetic chronic kidney disease; N18.9 Chronic kidney disease, unspecified; I50.9 Heart failure, unspecified
CPT/HCPCS: 36415; 80053; 83036; 84443; 85025

== ENCOUNTER 2025-06-07 12:15 | Outpatient (REF) | payer MEDICARE, MEDICAID, SELFPAY ==
[2025-06-07 12:20] LABS: MANUAL DIFF FLAG NO
[2025-06-07 12:34] LABS: Hematocrit 29.3 % (37.0-47.0); Hemoglobin 8.8 g/dl (12.0-16.0); Imm Gran Abs Auto 0.02 X10*3/uL (0.00-0.03); Imm Gran Pct Auto 0.2 % (0.0-0.4); Lymphocytes Absolute Auto 2.5 X10*3/uL (1.2-4.9); Mean Corpuscular HGB Conc 30.0 g/dl (31.0-35.0); Mean Corpuscular Hemoglobin 24.5 pg (27.0-33.0); Mean Corpuscular Volume 81.6 fL (80.0-98.0); NRBC Abs Auto 0.000 X10*3/uL (0.0-0.012); NRBC Pct Auto 0.0 /100WBC (0.0-0.2); Platelet Count 384 X10*3/uL (160-400); Red Blood Count 3.59 X10*6/uL (4.20-5.50); White Blood Count 8.2 X10*3/uL (4.8-10.8)
[2025-06-07 12:48] LABS: Anion Gap 9 (12-20); Blood Urea Nitrogen 22 mg/dL (9-16); Calcium 9.3 mg/dL (8.4-10.2); Carbon Dioxide 27 mmol/L (22-29); Chloride 110 mmol/L (96-108); Estimated Glomerular Filt Rate > 60; Potassium 3.2 mmol/L (3.3-5.1); Sodium 143 mmol/L (135-145)
--- OUTSIDE RECORDS SUMMARY | 2025-06-07 13:08 | XMS_ITS ---
Author Name [facility] Organization Unknown Care Team Organization Name Specialty Phone Email Start Date End Da te [facility] DARWIN [facility] Primary [facility] 03/17/20232023 [facility] MARJAN BRICE Primary Care 09/17/2022 06/28/2024
--- OUTSIDE RECORDS SUMMARY | 2025-06-07 13:08 | XMS_ITS | Clinical Summary ---
Author Organization LL [address] [facility] Address [address] [place] [address] Phone Care Team Providers Care Night Supervisor Name Role Phone Unavailable Primary Care Provider Unavailabl e Allergies Active Allergy Reactions Criticality Noted Date [...] by mouth 1 (one) time each day. 4 10/07/20 25 Active atorvastatin (LIPITOR) 40 mg tablet [...] Noted Date Diagnosed Date Left below-knee amputee (CMS/HCC V24, [facility] V2 8) 09/30/2024 Toe ulcer due to DM ([facility] V24, [facility] V28) 0 02/28/2022 Overview (12/06/2024): Left second toe. Status postdebridement. To be following with Dr. Shana ANN Hypertensive retinopathy of both eyes 01/04/2022 Overview (12/06/2024): Dr. 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 Nuclear sclerosis 01/04/2022 Overview (12/06/2024): Cataract surgery recommnded, patient declined. Type 2 diabetes mellitus wit h eye manifestations ([facility] V24, [facility] V28) 01/04/2022 Overview (12/06/2024): Diabetic retinopathy, macula edema. Dr. 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 ([facility] V24) 03/16/2018 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 ([facility] V24) 01/26/2018 Overview (12/06/2024): Dry gangrene Hypertriglyceridemia 12/13/2013 Overview (12/06/2024): IMO update Diabetes mellitus, type 2 ([facility] V24, [facility] V28) 08/02/2013 Hypertension 08/02/2013 Major depression 08/02/2013 Immunizations Name Administration Dates Next Due Pneumococcal polysaccharide 23 valent (Pneumovax 23) 2yo and older 12/13/2013 Td, Unspecified 04/10/2004 Tdap Tetanus diptheria acell ular pertussis (Boostrix; Adacel) 7yo and older 12/13/2013 Surgical History Surgery Date Site/Laterality Comments TONSILLECTOMY 11/10/1959 PROCEDURE: HISTORICAL TONSILLECTOMY BYPASS GRAFT 03/16/2018 PROCEDURE: TX AMPUTATION TOE METATARSOPHALANGEAL JOINT; COMMENT: Left first [...] of grea t toe of left foot ([facility] V24) 01/26/2018 DX:Traumatic amputation of g reat toe of left foot ([facility]); COMMENT: Dry gangrene Cholelithiasis DX:Cholelithiasi s Gangrene ([facility] V24, [facility] V28) DX:Gangrene ([facility]); COMMENT: Left great toe Legally blind DX:Legally blind Neuropathy DX:Neuropathy Osteoarthritis DX:Osteoarthriti s PAD (peripheral artery disea se) ([facility] V24) DX:PAD (peripheral artery di sease) ([facility]) Poor dentition DX:Poor dentitio n PVD (peripheral vascular dis ease) ([facility] V24) DX:PVD (peripheral vascular disease) ([facility]) S/P angioplasty DX:S/P angioplas ty S/P BKA (below knee amputati on) ([facility] V24, [facility] V28) DX:S/P BKA (below knee ampu tation) ([facility]) Diabetes mellitus type 2, co ntrolled, with complications ([facility] V24, [facility] V28) DX:Diabetes mellitus type 2, controlled, with complications ([facility]) Esophageal reflux DX:Esophageal reflux Hyperlipidemia DX:Hyperlipidemi a Essential hypertension DX:Essent ial hypertension Toe ulcer due to DM ([facility] V24, [facility] V28) 02/28/2022 DX:Toe ulcer due to DM ([facility]) ; COMMENT: Left second toe. Status postdebridement. [...] lems Father diabetes Maternal Grandmother (Age 59) [facility] Mother (Age 77) stroke age 75 diabetes- [...] for your loved ones. For example, child development associate teacher or elderly care for an older [...] 02/09/2021 Medicare Annual Wellness Visit 08/26/2024 08/26/2023 Depression Screening 11/10/2024 10/08/2024 Diabetes: Annual Urine Albumin-Creatinine Ratio (uACR) 12/08/2024 12/08/2023 Influenza Vaccine (#1) 2025 08/14/2018 Diabetes: Annual GFR (Glomerular Filtration Rate) 10/06/2025 10/06/2024, 10/01/2024, 09/17/2024 Hypertension/CHF/CAD Annual BMP Blood Test 10/06/2025 10/06/2024, 10/01/2024, 09/17/2024 Falls Risk Assessment 10/08/2025 10/08/2024 Social Influencers [...] mmol/L LAB CHEMISTRY METHOD 10/06/2024 6:53 AM [facility] Potassium 4.3 3.5 - 5.5 mmol/L LAB CHEMISTRY METHOD 10/06/2024 6:53 AM [facility] Chloride 101 96 - 110 mmol/L LAB CHEMISTRY METHOD 10/06/2024 6:53 AM [facility] CO2 26 21 - 32 mmol/L LAB CHEMISTRY METHOD 10/06/2024 6:53 AM [facility] Anion Gap 9 3 - 11 LAB CHEMISTRY METHOD 10/06/2024 6:53 AM [facility] Glucose 86 70 - 100 mg/dL LAB CHEMISTRY METHOD 10/06/2024 6:53 AM [facility] BUN 16 5 - 25 mg/dL LAB CHEMISTRY METHOD 10/06/2024 6:53 AM [facility] Creatinine 0.48(L) 0.50 - 1.10 mg/dL LAB CHEMISTRY METHOD 10/06/2024 6:53 AM [facility] eGFR 101 >=60 mL/min/1. 73m2 LAB CHEMISTRY METHOD 10/06/2024 6:53 AM [facility] Comment:Calculation based on the Chronic Kidney Disease Epidemiology Collaboration (CKD-EPI) equation refit without adjustment for race. BUN/Creatinine Ratio 33.3 LAB CHEMISTRY METHOD 10/06/2024 6:53 AM [facility] Calcium 9.6 8.5 - 10.5 mg/dL LAB CHEMISTRY METHOD 10/06/2024 6:53 AM [facility] AST (SGOT) 16 10 - 42 unit/L LAB CHEMISTRY METHOD 10/06/2024 6:53 AM [facility] ALT (SGPT) 12 10 - 60 unit/L LAB CHEMISTRY METHOD 10/06/2024 6:53 AM [facility] Alkaline Phosphatase 72 42 - 121 unit/L LAB CHEMISTRY METHOD 10/06/2024 6:53 AM [facility] Total Protein 5.6(L) 6.0 - 8.0 g/dL LAB CHEMISTRY METHOD 10/06/2024 6:53 AM [facility] Albumin 2.2(L) 3.2 - 5.0 g/dL LAB CHEMISTRY METHOD 10/06/2024 6:53 AM [facility] Total Bilirubin 0.3 0.0 - 1.4 mg/dL LAB CHEMISTRY METHOD 10/06/2024 6:53 AM [facility] Blood Venous blood specimen / Unknown Venipuncture / Unknown 10/06/2024 5:55 AM EST 10/06/2024 6:16 AM EST us Amalia DIAS LAB BLOOD ORDERABLES Final R esult [facility] ([facility] [address] [place] [address], [place] [phone] * Urine Albumin Creatinine Ratio (12/08/2023) Urine Albumin Creatinine Ratio abstracted us Historical Provider HEALTH MAINTENANCE Final Result * Hepatitis C Screening (05/11/2014) Hepatitis C Screening abstracted Historical Provider HEALTH MAINTENANCE Final Result from Last 3 Months or Most Recently Relevant to Health Maintenance Insurance MEDICAID - [place] MEDICARE [facility] Advance Directives Documents on File Type Date Recorded Patient Customer Advisor Expl anation Advance Directives and Living Will [...] DIRECTIVE Health Care Decision (hx) 06/09/2022 AD ENW DIRECTIVE Health Care Decision (hx) 06/09/2022 AD [...]
--- OUTSIDE RECORDS SUMMARY | 2025-06-07 13:08 | XMS_ITS | Data Portability ---
Author Organization [facility], Main Office Address [address] [facility] [facility] [address] [place] [address] Care Team Providers Care Help Desk Supervisor Name Role Phone [facility] [place]([facility] OTHER Assessment Encounter Date Assessment Date [...] By Organization Details Last Modified Time 11/20/2018 [id number] d/c home with meds, services on 11/21/18. f.u. with pcp in 2 weeks. f/u with vascular surg. as sched. [email or web address] Not available 11/20/2018 11:42:09 Reason for Referral None Reported. Problems Name Problem SNOMED Code Status Onset Date Resolution Date Notes Provider Name and Address Organization Details Recorded Time Diabetes mellitus 96288276 Active 2017 Betsy diallo, [facility] 8 21:29:28 Essential hypertensio n 82415645 Active 2017 Betsy diallo, [facility] 8 21:29:40 Peripheral gangrene 534970426 Completed 201708/02/2018 Betsy diallo, [facility] 8 21:30:46 Infection of foot 206922314 Active 2017 Betsy diallo, [facility] 8 21:30:05 Peripheral vascular disease 389145306 Active 2017 Betsy diallo, [facility] 8 21:30:17 Neuropathy 481788391 Active 2017 Betsy diallo, [facility] 8 21:32:44 Osteoarthri tis 540843715 Active 2017 Bashir Lui MD [address] [facility], [address], [place], [address], [facility] 8 13:17:23 Mixed hyperlipide gena 719681493 Active 2017 Bashir Lui MD [address] [facility], [address], [place], [address], [facility] 8 13:23:00 Gangrene of foot 627336833 Active 2017 Bashir Lui MD [address] [facility], [address], [place], [address], [facility] 8 13:40:39 Amputated below knee 504551382 Active 2017 Shannon Dean yoel, [facility] 8 10:07:01 Peripheral vascular disease 757079647 Active 2017 Shannon diallo, [facility] 8 10:07:01 Diabetes mellitus 84443483 Active 2017 Shannon diallo, [facility] 8 10:07:01 Essential hypertensio n 52451787 [facility] 10:07:01 Legal blindness 59323314 Active 2017 [facility] 10:07:01 Osteoarthri tis 387828121 Active 2017 Shannon diallo, [facility] 8 10:07:01 Neuropathy due to diabetes mellitus 986636744 Active 2017 Shannon Dean [facility], [facility] 8 10:07:01 Mixed hyperlipide gena 232973804 Active 2017 Shannon diallo, [facility] 8 10:07:01 Problem Notes None recorded. Medical Equipment None Reported. Allergies No known drug allergies Medications Not known to be on any medication Vitals Date Recorded Heart rate Systolic And Diastolic Provider Name and Address Organization Details Last Updated DateTime 11/19/2018 74 /min 108/55 mm[Hg] Priscila Lerner [facility] 11/19/2018 16:56:52 Date Recorded Heart rate Respiratory rate Systolic And Diastolic Provider Name and Address Organization Details Last Updated DateTime 10/30/2018 67 /min 15 /min 157/65 mm[Hg] Rianna Lopez [address] [place] [address], [address], [place], [address], [facility] 10/30/2018 08:20:50 Social History Question Answer Notes LastModified by Organizat ion Details LastModified Time Tobacco Smoking Status Never Smoker Not Available [facility] 09/05/2020 03:13:20 Do You Have An Advance Directive? Yes DNR DNI [id number] Information not available 09/05/2020 How Much Tobacco Do You Chew? None [id number] Information not available 09/05/2020 Do You Have A Medical Power Of Financial Services Counselor? No [id number] Information not available 09/05/2020 What Was The Date Of Your Most Recent Tobacco Screening? 11/09/2018 [id number] Information not available 09/05/2020 Sex: Unknown Functional Status Question Answer Note LastModified by Organization D etails LastModified Time What is your level of alcohol consumption? None [id number] Information not available 09/05/2020 Mental Status None [...] unspecified formulation 08/14/2018 completed Nohemy diallo [place] [facility] 08/31/2018 13:05:57 Past Encounters Encounter ID Performer Location Encounter Start Date Encounter Closed Date Diagnosis/Indication Diagnosis SNOMED-CT Code Diagnosis ICD10 Code Diagnosis Note [id number] Betsy Bynum NP, [place] [address] [facility] [place] [address] 08/02/2018 21:34:50 08/13/2018 10:48:53 Infection of foot 759844825 L08.9 wound care: left toe amputation with lodosrb and dry daily right heel ulcer silvadene and dry sterile dressing bid pt/ot f/u dr calderon 08/11/18 doxy bid for 14 days pain control with oxycodone pt alexandra nash switching surgeons, she will let us know her choices and we can help make appts for her provide supportive care Peripheral vascular disease 468788520 I73.9 continue plavix, aspirin, atorvastat in extensive hx of pvd Diabetes mellitus 797504 09 E11.69 continue metformin monitor fs qid if fs consistent ly >200 consider tighter control based on chronic wounds Essential hypertension 26953314 I10 metoprolol 50mg bid monitor hr/bp norvasc 5mg qday [id number] Bashir Lui MD [place] [address] [facility] [place] [address] 08/04/2018 13:10:17 08/13/2018 11:04:55 Peripheral vascular disease 425848338 I73.89 see HPIunderwe nt left lower extremity angiogram per summary however patient states this was right sideandrig ht heel ulcerunder went debridemen tsurgery discussed BKArefused by patient at this timemonito r sitecontin ue wound careplavix 75 mg qddoxycycl ine 100 mg bidadd probiotic8 1 mg qdPatient very interested in avoiding amputation - discusses this in depth Diabetes mellitus 525207 09 E11.9 metformin 500 mg qam, 250 mg qpmmonitor blood glucose Essential hypertension 40697045 I10 norvasc 5 mg qdmetoprol ol 50 mg bidmonitor bp Mixed hyperlipidemia 267 383864 E78.2 lipitor 40 mg qdcontinue Gangrene of foot 5670123 05 I96 dry gangrene right first toesee above [id number] Bashir Lui MD [address] [place] [address] 08/19/2018 16:08:43 08/20/2018 09:35:13 Peripheral vascular disease 141666125 I73.89 see HPIright heel ulcersurge ry again discussed BKAstill refused by patient at this timemonito r sitecontin ue wound careplavix 75 mg qddoxycycl ine 100 mg bid with stop date to be determined by surgerypat ient is waiting on second surgical opinion next weekwill then decide Gangrene of foot 8345023 05 I96 worsening conditiond ry gangrene right first toe [id number] Bashir Lui MD [address] [place] [address] 10/05/2018 09:03:08 10/19/2018 11:57:02 Amputated below knee 445451091 Z89.511 see HPIfailed conservati ve treatment for foot infection/ ulcer rightnow s/p BKAfollow ortho recsPT OT eval and treatmonit or for pain control and constipati on Peripheral vascular disease 310099778 I73.89 peripheral artery disease at baselinepl avix 75 mg qdASA 81 mg qdcurrentl y on lovenox for DVT prophylaxi s Diabetes mellitus 081613 09 E11.9 metformin 500 mg qam 250 mg q pmmonitor blood glucose Neuropathy due to diabetes mellitus 373642122 E11.42 gabapentin 200 mg qhsmonitor for pain control Essential hypertension 66613059 I10 metoprolol 50 mg bidnorvasc 5 mg qdmonitor bp Mixed hyperlipidemia 267 831009 E78.2 lipitor 40 mg qdcontinue [id number] JASPAL LORD [place] [address] [place] [address] 10/13/2018 11:06:44 10/19/2018 13:12:19 Amputated below knee 062525943 Z89.511 see HPIfailed conservati ve treatment for [...] elevation due to edema. Peripheral vascular disease 248592964 I73.89 peripheral artery disease at baselinepl avix 75 mg qdASA 81 mg qdcurrentl y on lovenox for DVT prophylaxi s Diabetes mellitus 121730 09 E11.9 metformin 500 mg qam 250 mg q pmmonitor blood glucose Neuropathy due to diabetes mellitus 358180572 E11.42 gabapentin 200 mg qhsmonitor for pain control [id number] [place] [address] 10/22/2018 11:31:09 11/05/2018 16:04:19 Amputated below knee 779233909 Z89.511 see HPIfailed conservati ve treatment for foot infection/ ulcer rightnow s/p BKA Peripheral vascular disease 133657548 I73.89 peripheral artery disease at baselinepl avix 75 mg qdASA 81 mg qdcurrentl y on lovenox for DVT prophylaxi s- will DC next week before discharge Diabetes mellitus 515248 09 E11.9 metformin 500 mg qam 250 mg q pmmonitor blood glucose Neuropathy due to diabetes mellitus 035538298 E11.42 gabapentin 200 mg qhsmonitor for pain control [id number] Rianna Lopez [address] [place], [place] [address] 10/30/2018 07:58:26 11/16/2018 20:30:37 Amputated below knee 575281727 Z89.511 s/p BKAsurgica l site secured with steri strips. d/c betadine and dry dsg.Contin ue with office systems technology instructor only at all times, remove for skin checks & skin care.follo w ortho recs,PT OT eval and treatmonit or for pain control and constipati on Peripheral vascular disease 354329858 I73.89 peripheral artery disease at baselinepl avix 75 mg qdASA 81 mg qdprophyla xis lovenox d/c'd on 10/27. Monitor Diabetes mellitus 965932 09 E11.9 metformin 500 mg qam 250 mg q pmmonitor blood glucose Neuropathy due to diabetes mellitus 668220498 E11.42 gabapentin 200 mg qhsmonitor for pain control Essential hypertension 53332788 I10 metoprolol 50 mg bidnorvasc 5 mg qdmonitor bp Mixed hyperlipidemia 267 328388 E78.2 lipitor 40 mg qdcontinue [id number] Bashir Lui MD [address] [place], [place] [address] 11/09/2018 13:57:25 11/12/2018 12:21:21 Peripheral vascular disease 905494798 I73.89 peripheral artery disease at baselinepl avix 75 mg qdASA 81 mg qdrestart lovenox 40 mg sc qdrefer back to surgery for eval Amputated below knee 299 013595 Z89.511 s/p BKAfollow ortho recs,PT OT eval and treatmonit or for pain control and constipati oncontinue s to improve [id number] LARISSA TORO [address] [place] [address] 11/19/2018 14:38:25 11/27/2018 09:47:55 Peripheral vascular disease 058138810 I73.89 peripheral artery disease at baselinepl avix 75 mg qdASA 81 mg qdrestart lovenox 40 mg sc qdrefer back to surgery for eval Amputated below knee 299 725527 Z89.511 s/p BKAfollow ortho recs,PT OT eval and treatmonit or for pain control and constipati oncontinue s to improve Open wound of toe 849928 002 S91.105D this is an unstageabl e area d/t darkened spot. Pt to f/u with vascualr as sched. continue current tx/care. [id number] PRISCILA LERNER, [address] [place] [address] 11/20/2018 10:21:06 11/27/2018 10:02:18 Peripheral vascular disease 475481089 I73.89 peripheral artery disease at baselinepl avix 75 mg qdASA 81 mg qdlovenox 40 mg sc qd- pt will go home with this until stopped by vascular.f /u with vasc. surg as sched. Amputated below knee 299 881023 Z89.511 s/p BKAfollow ortho recs,monit or for pain control and constipati oncontinue s to improve Diabetes mellitus 024088 09 E11.9 stable, continue metformin 500 mg qam 250 mg q pmmonitor blood glucose Neuropathy due to diabetes mellitus 248129640 E11.42 stable, continue gabapentin 200 mg qhs Essential hypertension 42474313 I10 stable, continueme toprolol 50 mg bidnorvasc 5 mg qdmonitor bp Mixed hyperlipidemia 267 314989 E78.2 lipitor 40 mg qd [id number] Betsy Bynum NP, [place] [address] [facility] [place] [address] 11/21/2018 19:41:01 12/21/2018 11:06:36 Peripheral vascular disease 252241068 I73.89 d/c home with current medication s peripheral artery disease at baselinepl avix 75 mg qdASA 81 mg qdlovenox 40 mg sc qd- pt will go home with this until stopped by vascular.f /u with vasc. surg as sched. oxycodone prn pain management Amputated below knee 299 043382 Z89.511 s/p BKAfollow ortho recs,monit or for pain control and constipati onpt d/c home with oxycodone script/tyl enol Diabetes mellitus 757358 09 E11.9 continue metformin 500 mg qam 250 mg q pmmonitor blood glucose Neuropathy due to diabetes mellitus 434987542 E11.42 stable, continue gabapentin 200 mg qhs Essential hypertension 83593193 I10 stable, continueme toprolol 50 mg bidnorvasc 5 mg qdmonitor bp Mixed hyperlipidemia 267 754614 E78.2 lipitor 40 mg qd Health Concerns Section Related Observation LastModified by Organization Detai ls LastModified Time None Recorded Concern Status LastModified by Organization Details LastModified Time None Recorded Advance Directives Directive Y: DNR DNI Payers Insurance Date Sequence Insurance Name Policy Number Policy Forte Covered Member ID Forte Member ID Guarantor Name 11/19/2018 1 MEDICARE B-[place]: [employer] Nevin Ma [id number] Nevin Ma 12/21/2018 2 A[employer] (MEDICARE SUPPLEMENT) Nevin Ma [id number] Nevin Ma 10/06/2018 2 [employer] (MEDICARE SUPPLEMENT) Nevin Ma [id number] Nevin Ma OBGyn Episode No OBEpisode recorded.
== END 2025-06-07 12:16 | disposition home or self-care (01) ==
LOC: HO.MMNH2L 12:15
PROVIDERS: Visit Provider Student in an Organized Health Care Education/Training Program
DX: I13.0 Hypertensive heart and chronic kidney disease with heart failure and stage 1 through stage 4 chronic kidney disease, or unspecified chronic kidney disease (principal); N18.9 Chronic kidney disease, unspecified; I50.9 Heart failure, unspecified
CPT/HCPCS: 36415; 80048; 85025

== ENCOUNTER 2025-06-08 07:16 | Outpatient (REF) | payer MEDICARE, MEDICAID, SELFPAY ==
--- OUTSIDE RECORDS SUMMARY | 2025-06-08 07:19 | XMS_ITS | Encounter Summary ---
Author Organization [facility] Address [address] [place] [address] Care Team Providers Care Statistical Assistant Name Role Phone Betsy Rodriguez MD Primary Care Prov ider Encounter Details Date Type Department Care Team (Late st Contact Info) Description 09/17/2024 Lab Requisition [facility] - Main Lab [address] [facility] [place] [id number] Mark Anthony Simpson MD [address] [place] [address] Essential (primary) hypertension; Type 2 diabetes mellitus [...] LAB CHEMISTRY METHOD 09/17/2024 9:14 AM EST [facility] Blood Venous blood specimen / Unknown Venipuncture / Unknown 09/17/2024 5:38 AM EST 09/17/2024 8:06 AM EST Mark Anthony Simpson MD LAB BLOOD ORDERABLES Final Result Performing Organization Address City/[facility]/ZIP Co de Phone Number [facility] [address] [place] [address], [place] [phone] * (ABNORMAL) Sedimentation rate (09/17/2024 5:38 AM EST) Sed Rate 97(H) 0 - 30 mm/hr LAB HEMETOLOGY METHOD 09/17/2024 8:33 AM EST [facility] Blood Venous blood specimen / Unknown Venipuncture / Unknown 09/17/2024 5:38 AM EST 09/17/2024 8:06 AM EST Mark Anthony Simpson MD LAB BLOOD ORDERABLES Final Result [facility] [address] [place] [address], [place] [phone] * (ABNORMAL) Comprehensive metabolic panel (09/17/2024 5:38 AM EST) Sodium 139 133 - 145 mmol/L LAB CHEMISTRY METHOD 09/17/2024 9:14 AM [facility] Potassium 5.0 3.5 - 5.5 mmol/L LAB CHEMISTRY METHOD 09/17/2024 9:14 AM [facility] Comment:Hemolysis present Chloride 106 96 - 110 mmol/L LAB CHEMISTRY METHOD 09/17/2024 9:14 AM [facility] CO2 27 21 - 32 mmol/L LAB CHEMISTRY METHOD 09/17/2024 9:14 AM [facility] Anion Gap 6 3 - 11 LAB CHEMISTRY METHOD 09/17/2024 9:14 AM [facility] Glucose 92 70 - 100 mg/dL LAB CHEMISTRY METHOD 09/17/2024 9:14 AM [facility] BUN 27(H) 5 - 25 mg/dL LAB CHEMISTRY METHOD 09/17/2024 9:14 AM [facility] Creatinine 0.58 0.50 - 1.10 mg/dL LAB CHEMISTRY METHOD 09/17/2024 9:14 AM [facility] eGFR 97 >=60 mL/min/1. 73m2 LAB CHEMISTRY METHOD 09/17/2024 9:14 AM [facility] Comment:Calculation based on the Chronic Kidney Disease Epidemiology Collaboration (CKD-EPI) equation refit without adjustment for race. BUN/Creatinine Ratio 46.6 LAB CHEMISTRY METHOD 09/17/2024 9:14 AM [facility] Calcium 10.3 8.5 - 10.5 mg/dL LAB CHEMISTRY METHOD 09/17/2024 9:14 AM [facility] AST (SGOT) 22 10 - 42 unit/L LAB CHEMISTRY METHOD 09/17/2024 9:14 AM [facility] Comment:Hemolysis present ALT (SGPT) 9(L) 10 - 60 unit/L LAB CHEMISTRY METHOD 09/17/2024 9:14 AM [facility] Alkaline Phosphatase 73 42 - 121 unit/L LAB CHEMISTRY METHOD 09/17/2024 9:14 AM [facility] Total Protein 6.2 6.0 - 8.0 g/dL LAB CHEMISTRY METHOD 09/17/2024 9:14 AM [facility] Albumin 2.6(L) 3.2 - 5.0 g/dL LAB CHEMISTRY METHOD 09/17/2024 9:14 AM [facility] Total Bilirubin 0.3 0.0 - 1.4 mg/dL LAB CHEMISTRY METHOD 09/17/2024 9:14 AM [facility] Blood Venous blood specimen / Unknown Venipuncture / Unknown 09/17/2024 5:38 AM EST 09/17/2024 8:06 AM EST Mark Anthony Simpson MD LAB BLOOD ORDERABLES Final Result [facility] [address] [place] [address], * (ABNORMAL) Complete blood count (09/17/2024 5:38 AM EST) WBC 10.6 4.8 - 10.8 K/mcL LAB HEMETOLOGY METHOD 09/17/2024 8:22 AM [facility] RBC 3.70(L) 3.80 - 4.80 M/mcL LAB HEMETOLOGY METHOD 09/17/2024 8:22 AM [facility] Hemoglobin 10.0(L) 11.5 - 16.0 g/dL LAB HEMETOLOGY METHOD 09/17/2024 8:22 AM [facility] Hematocrit 32.4(L) 35.0 - 47.0 % LAB HEMETOLOGY METHOD 09/17/2024 8:22 AM [facility] MCV 86.6 79.0 - 98.0 FL LAB HEMETOLOGY METHOD 09/17/2024 8:22 AM EST [facility] MCH 26.7(L) 27.0 - 32.0 pcg LAB HEMETOLOGY METHOD 09/17/2024 8:22 AM [facility] MCHC 30.9(L) 32.0 - 37.0 g/dL LAB HEMETOLOGY METHOD 09/17/2024 8:22 AM EST [facility] RDW 16.4(H) 11.0 - 15.0 % LAB HEMETOLOGY METHOD 09/17/2024 8:22 AM EST [facility] Platelets 481(H) 130 - 400 K/mcL LAB HEMETOLOGY METHOD 09/17/2024 8:22 AM EST [facility] MPV 10.1 7.0 - 11.0 FL LAB HEMETOLOGY METHOD 09/17/2024 8:22 AM EST [facility] NRBC 0.0 <1.0 % LAB HEMETOLOGY METHOD 09/17/2024 8:22 AM EST [facility] NRBC Absolute 0.00 <0.10 K/mcL LAB HEMETOLOGY METHOD 09/17/2024 8:22 AM [facility] Blood Venous blood specimen / Unknown Venipuncture / Unknown 09/17/2024 5:38 AM EST 09/17/2024 8:06 AM EST us Mark Anthony Simpson MD LAB BLOOD ORDERABLES Final Result [facility] [address] [place] [address], documented in this encounter Visit Diagnoses Diagnosis Essential (primary) hypertension Unspecified essential hypertension Type 2 diabetes mellitus without complications (CMS/HCC V24, CMS/HCC V28) documented in this encounter Care Teams Statistical Assistant Relationship Specialty Start Date End Date Betsy Rodriguez MD [address] [place] [id number] PCP - General Internal Medicine 09/30/24 11/17/24 documented as of this encounter
[2025-06-08 07:31] LABS: MANUAL DIFF FLAG NO
[2025-06-08 07:42] LABS: Hematocrit 26.9 % (37.0-47.0); Hemoglobin 8.3 g/dl (12.0-16.0); Imm Gran Abs Auto 0.03 X10*3/uL (0.00-0.03); Imm Gran Pct Auto 0.4 % (0.0-0.4); Lymphocytes Absolute Auto 2.6 X10*3/uL (1.2-4.9); Mean Corpuscular HGB Conc 30.9 g/dl (31.0-35.0); Mean Corpuscular Hemoglobin 25.0 pg (27.0-33.0); Mean Corpuscular Volume 81.0 fL (80.0-98.0); NRBC Abs Auto 0.000 X10*3/uL (0.0-0.012); NRBC Pct Auto 0.0 /100WBC (0.0-0.2); Platelet Count 364 X10*3/uL (160-400); Red Blood Count 3.32 X10*6/uL (4.20-5.50); White Blood Count 8.1 X10*3/uL (4.8-10.8)
[2025-06-08 07:59] LABS: Anion Gap 11 (12-20); Blood Urea Nitrogen 25 mg/dL (9-16); Calcium 9.1 mg/dL (8.4-10.2); Carbon Dioxide 25 mmol/L (22-29); Chloride 109 mmol/L (96-108); Estimated Glomerular Filt Rate > 60; Potassium 3.5 mmol/L (3.3-5.1); Sodium 141 mmol/L (135-145)
== END 2025-06-08 07:17 | disposition home or self-care (01) ==
LOC: HO.MMNH2L 07:16
PROVIDERS: Visit Provider Student in an Organized Health Care Education/Training Program
DX: I13.0 Hypertensive heart and chronic kidney disease with heart failure and stage 1 through stage 4 chronic kidney disease, or unspecified chronic kidney disease (principal); E11.22 Type 2 diabetes mellitus with diabetic chronic kidney disease; N18.9 Chronic kidney disease, unspecified; I50.9 Heart failure, unspecified
CPT/HCPCS: 36415; 80048; 85025

== ENCOUNTER 2025-06-10 07:47 | Outpatient (REF) | payer MEDICARE, MEDICAID, SELFPAY ==
--- OUTSIDE RECORDS SUMMARY | 2025-06-10 07:48 | XMS_ITS | Clinical Summary ---
Author Organization LL 299 [facility] Address [address] [place] [phone] Phone Care Team Providers Care Welfare Director Name Role Phone Unavailable Primary Care Provider [...] Diagnosed Date Left below-knee amputee (CMS/HCC V24, CMS/[facility] V2 8) 09/30/2024 Toe ulcer due to DM ([facility] V24, [facility] V28) 0 02/28/2022 Overview (12/06/2024): Left second toe. Status postdebridement. To be following with Dr. Shana ANN Hypertensive retinopathy of both eyes 01/04/2022 Overview (12/06/2024): Dr. 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 Nuclear sclerosis 01/04/2022 Overview (12/06/2024): Cataract surgery recommnded, patient declined. Type 2 diabetes mellitus wit h eye manifestations ([facility] V24, [facility] V28) 01/04/2022 Overview (12/06/2024): Diabetic retinopathy, macula edema. Dr. 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 ([facility] V24) 03/16/2018 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 ([facility] V24) 01/26/2018 Overview (12/06/2024): Dry gangrene Hypertriglyceridemia 12/13/2013 Overview (12/06/2024): IMO update Diabetes mellitus, type 2 ([facility] V24, [facility] V28) 08/02/2013 Hypertension 08/02/2013 Major depression 08/02/2013 Immunizations Name Administration Dates Next Due Pneumococcal polysaccharide 23 valent (Pneumovax 23) 2yo and older 12/13/2013 Td, Unspecified 04/10/2004 Tdap Tetanus diptheria acell ular pertussis (Boostrix; Adacel) 7yo and older 12/13/2013 Surgical History Surgery Date Site/Laterality Comments TONSILLECTOMY 11/10/1959 PROCEDURE: HISTORICAL TONSILLECTOMY BYPASS GRAFT 03/16/2018 PROCEDURE: TN AMPUTATION TOE METATARSOPHALANGEAL JOINT; COMMENT: Left first [...] of grea t toe of left foot ([facility] V24) 01/26/2018 DX:Traumatic amputation of g reat toe of left foot ([facility]); COMMENT: Dry gangrene Cholelithiasis DX:Cholelithiasi s Gangrene ([facility] V24, [facility] V28) DX:Gangrene ([facility]); COMMENT: Left great toe Legally blind DX:Legally blind Neuropathy DX:Neuropathy Osteoarthritis DX:Osteoarthriti s PAD (peripheral artery disea se) ([facility] V24) DX:PAD (peripheral artery di sease) ([facility]) Poor dentition DX:Poor dentitio n PVD (peripheral vascular dis ease) ([facility] V24) DX:PVD (peripheral vascular disease) ([facility]) S/P angioplasty DX:S/P angioplas ty S/P BKA (below knee amputati on) ([facility] V24, [facility] V28) DX:S/P BKA (below knee ampu tation) ([facility]) Diabetes mellitus type 2, co ntrolled, with complications ([facility] V24, [facility] V28) DX:Diabetes mellitus type 2, controlled, with complications ([facility]) Esophageal reflux DX:Esophageal reflux Hyperlipidemia DX:Hyperlipidemi a Essential hypertension DX:Essent ial hypertension Toe ulcer due to DM ([facility] V24, [facility] V28) 02/28/2022 DX:Toe ulcer due to DM ([facility]) ; COMMENT: Left second toe. [...] lems Father diabetes Maternal Grandmother (Age 59) [facility] Mother (Age 77) stroke age [...] care for your loved ones. For example, director of early childhood education or elderly care for an older adult? [...] [facility] Comment:Calculation based on the [...] DIAS LAB BLOOD ORDERABLES Final R esult [facility] ([facility] [address] [place] [address], [place] [phone] * Urine Albumin Creatinine Ratio (12/08/2023) Urine Albumin Creatinine Ratio abstracted us Historical Provider HEALTH MAINTENANCE Final Result * Hepatitis C Screening (05/11/2014) Hepatitis C Screening abstracted Historical Provider HEALTH MAINTENANCE Final Result from Last 3 Months or Most Recently Relevant to Health Maintenance Insurance [place] - [place] MEDICARE [facility] Advance Directives Documents on File Type Date Recorded 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
[2025-06-10 08:04] LABS: Appearance Urine Clear; Glucose Urine UA Negative (Negative); PH 5.5 (5.0-9.0); Specific Gravity - Urine 1.025 (1.005-1.025); UMIC TRIGGER UA YES
== END 2025-06-10 07:48 | disposition home or self-care (01) ==
LOC: HO.MMNH2L 07:47
PROVIDERS: Visit Provider Student in an Organized Health Care Education/Training Program
DX: R41.0 Disorientation, unspecified (principal); Z91.81 History of falling
CPT/HCPCS: 81001; 81003; 87086; 87088; 87186

== ENCOUNTER 2025-06-16 06:45 | Outpatient (REF) | payer MEDICARE, MEDICAID, SELFPAY ==
--- OUTSIDE RECORDS SUMMARY | 2025-06-16 06:49 | XMS_ITS | Clinical Summary ---
Author Organization LL 299 [facility] Address [address] [place] [phone] Phone Care Team Providers Care Equal Opportunity Director Name Role Phone Unavailable Primary Care [...] Left below-knee amputee (CMS/HCC V24, CMS/[facility] V2 8) 09/30/2024 Toe ulcer due to DM ([facility] V24, [facility] V28) 0 02/28/2022 Overview (12/06/2024): Left second toe. Status postdebridement. To be following with Dr. Shana ANN Hypertensive retinopathy of both eyes 01/04/2022 Overview (12/06/2024): Dr. 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 ([facility] V24, [facility] V28) 01/04/2022 Overview (12/06/2024): Both eyes, [...] PROCEDURE: HISTORICAL TONSILLECTOMY BYPASS GRAFT 03/16/2018 PROCEDURE: ME AMPUTATION TOE METATARSOPHALANGEAL JOINT; COMMENT: Left first [...] reat toe of left foot ([facility]); COMMENT: Dry gangrene Cholelithiasis DX:Cholelithiasi s Gangrene ([facility] V24, [facility] V28) DX:Gangrene ([facility]); COMMENT: Left great toe Legally blind DX:Legally blind Neuropathy DX:Neuropathy Osteoarthritis DX:Osteoarthriti s PAD (peripheral artery disea se) ([facility] V24) DX:PAD (peripheral artery di sease) ([facility]) Poor dentition DX:Poor dentitio n PVD (peripheral vascular dis ease) ([facility] V24) DX:PVD (peripheral vascular disease) ([facility]) S/P angioplasty DX:S/P angioplas ty S/P BKA (below knee amputati on) ([facility] V24, [facility] V28) DX:S/P BKA (below knee ampu tation) ([facility]) Diabetes mellitus type 2, co ntrolled, with complications ([facility] V24, [facility] V28) DX:Diabetes mellitus type 2, controlled, with complications ([facility]) Esophageal reflux DX:Esophageal reflux Hyperlipidemia DX:Hyperlipidemi a Essential hypertension DX:Essent ial hypertension Toe ulcer due to DM ([facility] V24, [facility] V28) 02/28/2022 DX:Toe ulcer due to DM ([facility]) ; COMMENT: Left second toe. Status [...] lems Father diabetes Maternal Grandmother (Age 59) [facility] Mother (Age 77) stroke age 75 [...] for your loved ones. For example, child advocate or elderly care for an older adult? [...] mmol/L LAB CHEMISTRY METHOD 10/06/2024 6:53 AM [facility] Potassium 4.3 3.5 - 5.5 mmol/L LAB CHEMISTRY METHOD 10/06/2024 6:53 AM [facility] Chloride 101 96 - 110 mmol/L LAB CHEMISTRY METHOD 10/06/2024 6:53 AM [facility] CO2 26 21 - 32 mmol/L LAB CHEMISTRY METHOD 10/06/2024 6:53 AM [facility] Anion Gap 9 3 - 11 LAB CHEMISTRY METHOD 10/06/2024 6:53 AM [facility] Glucose 86 70 - 100 mg/dL LAB CHEMISTRY METHOD 10/06/2024 6:53 AM [facility] BUN 16 5 - 25 mg/dL LAB CHEMISTRY METHOD 10/06/2024 6:53 AM [facility] Creatinine 0.48(L) 0.50 - 1.10 mg/dL LAB CHEMISTRY METHOD 10/06/2024 6:53 AM [facility] eGFR 101 >=60 mL/min/1. 73m2 LAB CHEMISTRY METHOD 10/06/2024 6:53 AM [facility] Comment:Calculation based on the Chronic Kidney Disease Epidemiology Collaboration (CKD-EPI) equation refit without adjustment for race. BUN/Creatinine Ratio 33.3 LAB CHEMISTRY METHOD 10/06/2024 6:53 AM [facility] Calcium 9.6 8.5 - 10.5 mg/dL LAB CHEMISTRY METHOD 10/06/2024 6:53 AM [facility] AST (SGOT) 16 10 - 42 unit/L LAB CHEMISTRY METHOD 10/06/2024 6:53 AM [facility] ALT (SGPT) 12 10 - 60 unit/L LAB CHEMISTRY METHOD 10/06/2024 6:53 AM [facility] Alkaline Phosphatase 72 42 - 121 unit/L LAB CHEMISTRY METHOD 10/06/2024 6:53 AM [facility] Total Protein 5.6(L) 6.0 - 8.0 g/dL LAB CHEMISTRY METHOD 10/06/2024 6:53 AM [facility] Albumin 2.2(L) 3.2 - 5.0 g/dL LAB CHEMISTRY METHOD 10/06/2024 6:53 AM [facility] Total Bilirubin 0.3 0.0 - 1.4 mg/dL LAB CHEMISTRY METHOD 10/06/2024 6:53 AM [facility] Blood Venous blood specimen / Unknown Venipuncture / Unknown 10/06/2024 5:55 AM EST 10/06/2024 6:16 AM EST us Amalia DIAS LAB BLOOD ORDERABLES Final R esult [facility] ([facility] [address] [place] [address], [place] [phone] * Urine Albumin Creatinine Ratio (12/08/2023) Urine Albumin Creatinine Ratio abstracted us Historical Provider HEALTH MAINTENANCE Final Result * Hepatitis C Screening (05/11/2014) Hepatitis C Screening abstracted Historical Provider HEALTH MAINTENANCE Final Result from Last 3 Months or Most Recently Relevant to Health Maintenance Insurance [place] [facility] Advance Directives Documents on File Type Date Recorded Patient Direct Marketing Coordinator Expl anation Advance Directives and Living Will [...] DIRECTIVE Health Care Decision (hx) 06/12/2022 AD NWE DIRECTIVE Health Care Decision (hx) 06/12/2022 AD [...]
[2025-06-16 09:27] LABS: MANUAL DIFF FLAG NO
[2025-06-16 09:53] LABS: Hematocrit 29.6 % (37.0-47.0); Hemoglobin 8.7 g/dl (12.0-16.0); Imm Gran Abs Auto 0.03 X10*3/uL (0.00-0.03); Imm Gran Pct Auto 0.4 % (0.0-0.4); Lymphocytes Absolute Auto 3.1 X10*3/uL (1.2-4.9); Mean Corpuscular HGB Conc 29.4 g/dl (31.0-35.0); Mean Corpuscular Hemoglobin 24.6 pg (27.0-33.0); Mean Corpuscular Volume 83.6 fL (80.0-98.0); NRBC Abs Auto 0.000 X10*3/uL (0.0-0.012); NRBC Pct Auto 0.0 /100WBC (0.0-0.2); Platelet Count 408 X10*3/uL (160-400); Red Blood Count 3.54 X10*6/uL (4.20-5.50); White Blood Count 7.9 X10*3/uL (4.8-10.8)
[2025-06-16 10:36] LABS: Anion Gap 11 (12-20); Blood Urea Nitrogen 23 mg/dL (9-16); Calcium 9.0 mg/dL (8.4-10.2); Carbon Dioxide 25 mmol/L (22-29); Chloride 109 mmol/L (96-108); Estimated Glomerular Filt Rate > 60; Potassium 4.0 mmol/L (3.3-5.1); Sodium 141 mmol/L (135-145)
== END 2025-06-16 06:46 | disposition home or self-care (01) ==
LOC: HO.MMNH2L 06:45
PROVIDERS: Visit Provider Student in an Organized Health Care Education/Training Program
DX: D64.9 Anemia, unspecified (principal); D75.838 Other thrombocytosis
CPT/HCPCS: 36415; 80048; 85025

== ENCOUNTER 2025-06-21 09:42 | Outpatient (AMB) | payer MEDICARE, MEDICAID, SELFPAY ==
--- NOTE | 2025-06-21 09:55 | A.OFFVIS_ITS ---
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 Cableman Required: No Card Reader: Card Reader Present Accompanied by: emt Allergies No Known Allergies Allergy (Verified 06/21/25 10:17) Medication List - Last Reconciled 06/21/25 by Derrick Rojas MD ascorbate calcium (vitamin C) 500 mg PO DAILY aspirin (Adult Aspirin Regimen) 81 mg PO DAILY atorvastatin (Lipitor) 40 mg PO BEDTIME baclofen 20 mg PO TID duloxetine 30 mg PO DAILY ferrous sulfate 325 mg PO DAILY Lactobacillus acidoph-L.bulgar 1 million cell (Floranex) 1 tab PO DAILY metoprolol succinate ER 12.5 mg PO BID oxycodone (RoxyBond) 5 mg PO BID PRN rivaroxaban (Xarelto) 2.5 mg PO BID sennosides (senna) 8.6 mg PO DAILY thiamine HCl (vitamin B1) 100 mg PO DAILY HPI Comments Details: Nevin was referred to cardiology clinic for possible abnormal EKG. When asked patient she says she does not know why she is referred to cardiology clinic. Patient has prior history of peripheral vascular disease with bilateral amputation below knee currently in his intermediate facility to help with rehabilitation so she can be fitted into a prosthesis so she could walk and be discharge. However she says she has has poor luck with rehab and currently he is very dependent on all functions. She is pretty much very sedentary. With her current functional status she has no active cardiac complaints. She has no chest pain or shortness of breath. She had about a year ago she was walking with the help of a prosthesis in his right leg and at that time she had no cardiac symptoms. She has prior history of hyperlipidemia, she says diabetes although she is currently not on any medications. She denies history of hypertension any kidney problems. She is currently on medicines as listed. She is referred here for possible abnormal EKG. EKGs done today here shows just poor R-wave progression which could be due to lead placement. She denies any prior myocardial infarction or cardiovascular issues. She said she had a rheumatic fever as a child and had a murmur but more recently has been told that she does not have significant murmur. [facility] Medical History Hyperlipidemia Peripheral vascular disease Surgical History S/P bilateral below knee amputation Review of Systems Const Denies chills, Denies daytime sleepiness, Denies fatigue, Denies fever(s), Denies frequent falls, Denies poor appetite, Denies snoring, Denies stops breathing during sleep, Denies weakness, Denies weight gain and Denies weight loss Eyes Denies loss of vision ENT Denies dizziness and Denies hearing loss Card Denies chest pain, Denies claudication, Denies leg edema, Denies lightheadedness, Denies palpitations, Denies dyspnea, Denies dyspnea on exertion and Denies orthopnea Resp Denies cough, Denies excessive phlegm production, Denies dyspnea, Denies dyspnea on exertion, Denies snoring and Denies wheezing GI Denies abdominal pain, Denies hematochezia, Denies change in bowel habits, Denies nausea and Denies vomiting Denies urinary frequency and Denies dysuria Musc Denies arthralgias, Denies muscle weakness and Denies numbness Skin/Breast Denies nail changes and Denies rash Neuro Denies Abnormal speech present, Denies dizziness, Denies frequent falls, Denies loss of vision, Denies memory loss, Denies numbness and Denies weakness Psych Denies depression and Denies memory loss Endo Denies fatigue and Denies palpitations Markel/Lymph Reports easy bruising and Reports other (anemia) Aller/Immun Denies wheezing Physical Exam Vital Signs: Last Vital Signs Pulse 73 06/21/25 10:01 BP 163/72 H 06/21/25 10:01 Const General: cooperative, comfortable, no acute distress, alert, awake and poor hygiene Nutritional Appearance: thin Orientation/consciousness: patient oriented x3 Limitations: other limitations (In a stretcher) HEENT Head: Yes normocephalic and Yes atraumatic Neck Neck: Yes trachea midline, Yes supple and Yes no JVD Resp Effort & Inspection: normal respiratory effort Auscultation: clear to auscultation bilaterally Cardio Jugular venous distension: no JVD Rate: regular rate Rhythm: regular rhythm Heart sounds: S1 normal heart sound present, S2 normal heart sound present, no click, no gallops and no murmurs Bruits: carotid bruit on the right GI Auscultation: normal bowel sounds Skin General skin exam: no rashes or lesions noted Neuro General: patient oriented x3 and no focal motor deficits Speech: No Abnormal speech present Extrem General: Yes other (Bilateral below-knee amputation) Psych Appearance: grossly normal Office Procedures EKG Details: EKG shows normal sinus rhythm with poor R-wave progression most likely lead placement with no acute ST T wave changes [id number], Complete Assessment & Plan Assessment & Plan (1) Carotid bruit: Code(s): R09.89 - Other specified symptoms and signs involving the circulatory and respiratory systems Category: Medical Plan: Patient with diffuse and significant vascular disease used to follow up with [facility] vascular surgery not sure who is following with her. Currently on aspi rin and low-dose oral anticoagulation therapy which is appropriate. Also on high-intensity statin therapy. Target goal LDL should be less than 60 mg/dL given her diffuse vascular disease. She had also noted to have carotid bruit and will suggest a carotid duplex to assess for significant carotid stenosis. This may require further intervention she has critical carotid stenosis. This was discussed with her. Currently she has minimal functional status related to her bilateral amputation and inability to move on her own. (2) Abnormal EKG: Code(s): R94.31 - Abnormal electrocardiogram [ECG] [EKG] Plan: Abnormal EKGs suggestive of poor R-wave progression or anterior GA. Less likely anterior GA. She has no active cardiac complaints at current functional status which is very low. Continue current aggressive vascular risk factor modification above. Will suggest an echocardiogram to evaluate LV structure and function to evaluate for wall motion abnormality. If this is within normal limits no further workup is suggested. Will follow up in the clinic if need be. Thank you for allowing me to partake in her care Orders: Orders US carotid duplex BI Today R09.89 - Other specified symptoms and signs involving the circulatory and respiratory systems CA echo transthoracic complete Today R94.31 - Abnormal electrocardiogram [ECG] [EKG] Coding Level of Care Code New Pt Level 4 (08640) Complex EM visit Add On G2211 Diagnoses Carotid bruit R09.89 Abnormal EKG R94.31 CPT Codes EKG - CPT: 71616-[id number], Complete ([id number])
[2025-06-21 10:01] VITALS: BP 163/72; PULSE 73
--- OUTSIDE RECORDS SUMMARY | 2025-06-21 10:24 | XMS_ITS | Clinical Summary ---
Author Organization LL 299 [facility] Address [address] [place] [phone] Phone Care Team Providers Care Internal Recruiter Name Role Phone Unavailable Primary Care Provider [...] Date Left below-knee amputee (CMS/HCC V24, CMS/[facility] V2 8) 09/30/2024 Toe ulcer due to DM ([facility] [place], [facility] V28) 0 02/28/2022 Overview (12/06/2024): Left second toe. Status postdebridement. To be following with Dr. Shana ANN Hypertensive retinopathy of both eyes 01/04/2022 Overview (12/06/2024): Dr. 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 Nuclear sclerosis 01/04/2022 Overview (12/06/2024): Cataract surgery recommnded, patient declined. Type 2 diabetes mellitus wit h eye manifestations ([facility] V24, [facility] V28) 01/04/2022 Overview (12/06/2024): Diabetic retinopathy, macula edema. Dr. Hunter SVT (supraventricular tachycardia) ([facility] V24) 05/28/2021 Amputation, below knee, unil ateral, traumatic ([facility] V24, [facility] V28) 12/10/2018 Peripheral vascular disease ([facility] V24) 2018 Overview (12/06/2024): Status post left great toe amputation, status post superficial femoral artery to dorsalis pedis bypass left SFA endarterectomy status post right BKA Diabetes mellitus ([facility] V24, [facility] V28) 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 ([facility] V24) 03/16/2018 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 ([facility] V24) 01/26/2018 Overview (12/06/2024): Dry gangrene Hypertriglyceridemia 12/13/2013 Overview (12/06/2024): IMO update Diabetes mellitus, type 2 ([facility] V24, [facility] V28) 08/02/2013 Hypertension 08/02/2013 Major depression 08/02/2013 Immunizations Name Administration Dates Next Due Pneumococcal polysaccharide 23 valent (Pneumovax 23) 2yo and older 12/13/2013 Td, Unspecified 04/10/2004 Tdap Tetanus diptheria acell ular pertussis (Boostrix; Adacel) 7yo and older 12/13/2013 Surgical History Surgery Date Site/Laterality Comments TONSILLECTOMY 11/10/1959 PROCEDURE: HISTORICAL TONSILLECTOMY BYPASS GRAFT 03/16/2018 PROCEDURE: [place] AMPUTATION TOE METATARSOPHALANGEAL JOINT; COMMENT: Left first [...] of grea t toe of left foot ([facility] V24) 01/26/2018 DX:Traumatic amputation of g reat toe of left foot ([facility]); COMMENT: Dry gangrene Cholelithiasis DX:Cholelithiasi s Gangrene ([facility] V24, [facility] V28) DX:Gangrene ([facility]); COMMENT: Left great toe Legally blind DX:Legally blind Neuropathy DX:Neuropathy Osteoarthritis DX:Osteoarthriti s PAD (peripheral artery disea se) ([facility] V24) DX:PAD (peripheral artery di sease) ([facility]) Poor dentition DX:Poor dentitio n PVD (peripheral vascular dis ease) ([facility] V24) DX:PVD (peripheral vascular disease) ([facility]) S/P angioplasty DX:S/P angioplas ty S/P BKA (below knee amputati on) ([facility] V24, [facility] V28) DX:S/P BKA (below knee ampu tation) ([facility]) Diabetes mellitus type 2, co ntrolled, with complications ([facility] V24, [facility] V28) DX:Diabetes mellitus type 2, controlled, with complications ([facility]) Esophageal reflux DX:Esophageal reflux Hyperlipidemia DX:Hyperlipidemi a Essential hypertension DX:Essent ial hypertension Toe ulcer due to DM ([facility] V24, [facility] V28) 02/28/2022 DX:Toe ulcer due to DM ([facility]) ; COMMENT: Left second toe. Status postdebridement. [...] lems Father diabetes Maternal Grandmother (Age 59) [facility] Mother (Age 77) stroke age 75 [...] for your loved ones. For example, child nutrition director or elderly care for an older [...] mmol/L LAB CHEMISTRY METHOD 10/06/2024 6:53 AM [facility] Potassium 4.3 3.5 - 5.5 mmol/L LAB CHEMISTRY METHOD 10/06/2024 6:53 AM [facility] Chloride 101 96 - 110 mmol/L LAB CHEMISTRY METHOD 10/06/2024 6:53 AM [facility] CO2 26 21 - 32 mmol/L LAB CHEMISTRY METHOD 10/06/2024 6:53 AM [facility] Anion Gap 9 3 - 11 LAB CHEMISTRY METHOD 10/06/2024 6:53 AM [facility] Glucose 86 70 - 100 mg/dL LAB CHEMISTRY METHOD 10/06/2024 6:53 AM [facility] BUN 16 5 - 25 mg/dL LAB CHEMISTRY METHOD 10/06/2024 6:53 AM [facility] Creatinine 0.48(L) 0.50 - 1.10 mg/dL LAB CHEMISTRY METHOD 10/06/2024 6:53 AM [facility] eGFR 101 >=60 mL/min/1. 73m2 LAB CHEMISTRY METHOD 10/06/2024 6:53 AM [facility] Comment:Calculation based on the Chronic Kidney Disease Epidemiology Collaboration (CKD-EPI) equation refit without adjustment for race. BUN/Creatinine Ratio 33.3 LAB CHEMISTRY METHOD 10/06/2024 6:53 AM [facility] Calcium 9.6 8.5 - 10.5 mg/dL LAB CHEMISTRY METHOD 10/06/2024 6:53 AM [facility] AST (SGOT) 16 10 - 42 unit/L LAB CHEMISTRY METHOD 10/06/2024 6:53 AM [facility] ALT (SGPT) 12 10 - 60 unit/L LAB CHEMISTRY METHOD 10/06/2024 6:53 AM [facility] Alkaline Phosphatase 72 42 - 121 unit/L LAB CHEMISTRY METHOD 10/06/2024 6:53 AM [facility] Total Protein 5.6(L) 6.0 - 8.0 g/dL LAB CHEMISTRY METHOD 10/06/2024 6:53 AM [facility] Albumin 2.2(L) 3.2 - 5.0 g/dL LAB CHEMISTRY METHOD 10/06/2024 6:53 AM [facility] Total Bilirubin 0.3 0.0 - 1.4 mg/dL LAB CHEMISTRY METHOD 10/06/2024 6:53 AM [facility] Blood Venous blood specimen / Unknown Venipuncture / Unknown 10/06/2024 5:55 AM EST 10/06/2024 6:16 AM EST us Amalia DIAS LAB BLOOD ORDERABLES Final R esult [facility] [address] [place] [address], [place] [phone] * Urine Albumin Creatinine Ratio (12/08/2023) Urine Albumin Creatinine Ratio abstracted us Historical Provider HEALTH MAINTENANCE Final Result * Hepatitis C Screening (05/11/2014) Hepatitis C Screening abstracted Historical Provider HEALTH MAINTENANCE Final Result from Last 3 Months or Most Recently Relevant to Health Maintenance Insurance [place]ICA[place] - [place] MEDICARE [facility] Advance Directives Documents on File Type Date Recorded Patient Blanket Inspector Expl anation Advance Directives and Living Will [...]
== END 2025-06-21 10:28 | disposition home or self-care (01) ==
LOC: HO.HCS 09:43
PROVIDERS: PCP Student in an Organized Health Care Education/Training Program; Visit Provider Internal Medicine Cardiovascular Disease
DX: R09.89 Other specified symptoms and signs involving the circulatory and respiratory systems (principal); R94.31 Abnormal electrocardiogram [ECG] [EKG]
CPT/HCPCS: 93010; 99204; G2211

== ENCOUNTER → 2025-06-21 09:42 | Outpatient (BNVA) | payer MEDICARE, MEDICAID, SELFPAY | PROVIDERS: PCP Student in an Organized Health Care Education/Training Program; Visit Provider Internal Medicine Cardiovascular Disease | DX: R09.89 Other specified symptoms and signs involving the circulatory and respiratory systems (principal); R94.31 Abnormal electrocardiogram [ECG] [EKG] | CPT/HCPCS: 93005; 99202 ==

== ENCOUNTER 2025-06-27 06:30 | Outpatient (REF) | payer MEDICARE, MEDICAID, SELFPAY ==
[2025-06-27 06:33] LABS: MANUAL DIFF FLAG NO
--- OUTSIDE RECORDS SUMMARY | 2025-06-27 06:33 | XMS_ITS | Clinical Summary ---
Author Organization LL 299 [facility] Address [address] [place] [phone] Phone Care Team Providers Care Community Nurse Name Role Phone Unavailable Primary Care Provider [...] Date Left below-knee amputee (CMS/HCC V24, [facility] V2 8) 09/30/2024 Toe ulcer due to DM ([facility] [place]24, [facility] V28) 0 02/28/2022 Overview (12/06/2024): Left second toe. Status postdebridement. To be following with Dr. Shana ANN Hypertensive retinopathy of both eyes 01/04/2022 Overview (12/06/2024): Dr. 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 ([facility] [place]24, [facility] V28) 01/04/2022 Overview (12/06/2024): Both eyes, recommended laser NPDR (nonproliferative diabe tic retinopathy) ([facility] V24, [facility] V28) 01/04/2022 Overview (12/06/2024): Moderate, OU, no NVE or NVD seen. Nuclear sclerosis 01/04/2022 Overview (12/06/2024): Cataract surgery recommnded, patient declined. Type 2 diabetes mellitus wit h eye manifestations ([facility] V24, [facility] V28) 01/04/2022 Overview (12/06/2024): Diabetic retinopathy, macula edema. Dr. Hunter SVT (supraventricular tachycardia) ([facility] V24) 05/28/2021 Amputation, below knee, unil ateral, traumatic ([facility] V24, [facility] V28) 12/10/2018 Peripheral vascular disease ([facility] V24) 2018 Overview (12/06/2024): Status post left great toe amputation, status post superficial femoral artery to dorsalis pedis bypass left SFA endarterectomy status post right BKA Diabetes mellitus ([facility] V24, [facility] V28) 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 ([facility] V24) 03/16/2018 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 ([facility] V24) 01/26/2018 Overview (12/06/2024): Dry gangrene Hypertriglyceridemia 12/13/2013 Overview (12/06/2024): IMO update Diabetes mellitus, type 2 ([facility] V24, [facility] V28) 08/02/2013 Hypertension 08/02/2013 Major depression 08/02/2013 Immunizations Name Administration Dates Next Due Pneumococcal polysaccharide 23 valent (Pneumovax 23) 2yo and older 12/13/2013 Td, Unspecified 04/10/2004 Tdap Tetanus diptheria acell ular pertussis (Boostrix; Adacel) 7yo and older 12/13/2013 Surgical History Surgery Date Site/Laterality Comments TONSILLECTOMY 11/10/1959 PROCEDURE: HISTORICAL TONSILLECTOMY BYPASS GRAFT 03/16/2018 PROCEDURE: [place] AMPUTATION TOE METATARSOPHALANGEAL JOINT; COMMENT: Left first [...] of grea t toe of left foot ([facility] V24) 01/26/2018 DX:Traumatic amputation of g reat toe of left foot ([facility]); COMMENT: Dry gangrene Cholelithiasis DX:Cholelithiasi s Gangrene ([facility] V24, [facility] V28) DX:Gangrene ([facility]); COMMENT: Left great toe Legally blind DX:Legally blind Neuropathy DX:Neuropathy Osteoarthritis DX:Osteoarthriti s PAD (peripheral artery disea se) ([facility] V[facility]) DX:PAD (peripheral artery di sease) ([facility]) Poor dentition DX:Poor dentitio n PVD (peripheral vascular dis ease) ([facility] V[facility]) DX:PVD (peripheral vascular disease) ([facility]) S/P angioplasty DX:S/P angioplas ty S/P BKA (below knee amputati on) ([facility] V[facility], [facility] V28) DX:S/P BKA (below knee ampu tation) ([facility]) Diabetes mellitus type 2, co ntrolled, with complications ([facility] V[facility], [facility] V28) DX:Diabetes mellitus type 2, controlled, with complications ([facility]) Esophageal reflux DX:Esophageal reflux Hyperlipidemia DX:Hyperlipidemi a Essential hypertension DX:Essent ial hypertension Toe ulcer due to DM ([facility] V[facility], [facility] V28) 02/28/2022 DX:Toe ulcer due to DM ([facility]) ; COMMENT: Left second toe. [...] Father diabetes Maternal Grandmother (Age 59) [facility] Mother (Age 77) stroke age [...] for your loved ones. For example, children's librarian or elderly care for an older adult? [...] LAB CHEMISTRY METHOD 10/06/2024 6:53 AM [facility] Potassium 4.3 3.5 - 5.5 mmol/L LAB CHEMISTRY METHOD 10/06/2024 6:53 AM [facility] Chloride 101 96 - 110 mmol/L LAB CHEMISTRY METHOD 10/06/2024 6:53 AM [facility] CO2 26 21 - 32 mmol/L LAB CHEMISTRY METHOD 10/06/2024 6:53 AM [facility] Anion Gap 9 3 - 11 LAB CHEMISTRY METHOD 10/06/2024 6:53 AM [facility] Glucose 86 70 - 100 mg/dL LAB CHEMISTRY METHOD 10/06/2024 6:53 AM [facility] BUN 16 5 - 25 mg/dL LAB CHEMISTRY METHOD 10/06/2024 6:53 AM [facility] Creatinine 0.48(L) 0.50 - 1.10 mg/dL LAB CHEMISTRY METHOD 10/06/2024 6:53 AM [facility] eGFR 101 >=60 mL/min/1. 73m2 LAB CHEMISTRY METHOD 10/06/2024 6:53 AM [facility] Comment:Calculation based on the Chronic Kidney Disease Epidemiology Collaboration (CKD-EPI) equation refit without adjustment for race. BUN/Creatinine Ratio 33.3 LAB CHEMISTRY METHOD 10/06/2024 6:53 AM [facility] Calcium 9.6 8.5 - 10.5 mg/dL LAB CHEMISTRY METHOD 10/06/2024 6:53 AM [facility] AST (SGOT) 16 10 - 42 unit/L LAB CHEMISTRY METHOD 10/06/2024 6:53 AM [facility] ALT (SGPT) 12 10 - 60 unit/L LAB CHEMISTRY METHOD 10/06/2024 6:53 AM [facility] Alkaline Phosphatase 72 42 - 121 unit/L LAB CHEMISTRY METHOD 10/06/2024 6:53 AM [facility] Total Protein 5.6(L) 6.0 - 8.0 g/dL LAB CHEMISTRY METHOD 10/06/2024 6:53 AM [facility] Albumin 2.2(L) 3.2 - 5.0 g/dL LAB CHEMISTRY METHOD 10/06/2024 6:53 AM [facility] Total Bilirubin 0.3 0.0 - 1.4 mg/dL LAB CHEMISTRY METHOD 10/06/2024 6:53 AM [facility] Blood Venous blood specimen / Unknown Venipuncture / Unknown 10/06/2024 5:55 AM EST 10/06/2024 6:16 AM EST us Amalia DIAS LAB BLOOD ORDERABLES Final R esult [facility] [address] [place] [address], [place] [phone] * Urine Albumin Creatinine Ratio (12/08/2023) Urine Albumin Creatinine Ratio abstracted us Historical Provider HEALTH MAINTENANCE Final Result * Hepatitis C Screening (05/11/2014) Hepatitis C Screening abstracted Historical Provider HEALTH MAINTENANCE Final Result from Last 3 Months or Most Recently Relevant to Health Maintenance Insurance [place] - [place] MEDICARE [facility] Advance Directives Documents on File Type Date Recorded Patient [place] Manager Expl anation Advance Directives and Living [...]
[2025-06-27 06:42] LABS: Hematocrit 31.8 % (37.0-47.0); Hemoglobin 9.7 g/dl (12.0-16.0); Imm Gran Abs Auto 0.02 X10*3/uL (0.00-0.03); Imm Gran Pct Auto 0.3 % (0.0-0.4); Lymphocytes Absolute Auto 2.9 X10*3/uL (1.2-4.9); Mean Corpuscular HGB Conc 30.5 g/dl (31.0-35.0); Mean Corpuscular Hemoglobin 25.8 pg (27.0-33.0); Mean Corpuscular Volume 84.6 fL (80.0-98.0); NRBC Abs Auto 0.000 X10*3/uL (0.0-0.012); NRBC Pct Auto 0.0 /100WBC (0.0-0.2); Platelet Count 328 X10*3/uL (160-400); Red Blood Count 3.76 X10*6/uL (4.20-5.50); White Blood Count 7.3 X10*3/uL (4.8-10.8)
[2025-06-27 07:20] LABS: Anion Gap 11 (12-20); Blood Urea Nitrogen 19 mg/dL (9-16); Calcium 9.4 mg/dL (8.4-10.2); Carbon Dioxide 25 mmol/L (22-29); Chloride 108 mmol/L (96-108); Estimated Glomerular Filt Rate > 60; Potassium 4.1 mmol/L (3.3-5.1); Sodium 140 mmol/L (135-145)
== END 2025-06-27 06:31 | disposition home or self-care (01) ==
LOC: HO.MMNH2L 06:30
PROVIDERS: Visit Provider Student in an Organized Health Care Education/Training Program
DX: D64.9 Anemia, unspecified (principal)
CPT/HCPCS: 36415; 80048; 85025